=== PATIENT | male | born 1980 | race African-American/Black ===

== ENCOUNTER 2017-01-26 14:04 | Inpatient (IN) | payer OTHER ==
[2017-01-26 14:54] VITALS: BMI 26.6
--- NOTE | 2017-01-26 17:26 | HP ---
COWS - Scale Resting Pulse: 0= [place] 80 or Below Sweatin= Chills/Flushing Restless Observation: 3= Extraneous Movement Pupil Size: 0= Normal to Room Light Bone or Joint Aches: 1= Mild Discomfort Runny Nose/ Eye Tearin= Runny Nose/Eyes GI Upset > 30mins: 3= Vomiting/Diarrhea Tremor Observation: 2= Slight Tremor Visible Yawning Observation: 0= None Anxiety or Irritability: 2=Irritable/Anxious Goose Flesh Skin: 0=Smooth Skin COWS Score: 14 CIWA Score - CIWA Score Nausea/Vomitin Muscle Tremors: 4-Moderate,w/Arms Extend Anxiety: 3 Agitation: 3 Paroxysmal Sweats: 1-Minimal Palms Moist Orientation: 1-Uncertain about Date Tacttile Disturbances: 0-None Auditory Disturbances: 0-None Visual Disturbances: 0-None Headache: 0-None Present CIWA-Ar Total Score: 14 Admission [facility] - HPI Chief Complaint: withdrawal sx Allergies/Adverse Reactions: Allergies Allergy/AdvReac Type Severity Reaction Status Date / Time No Known Allergies Allergy Verified 01/26/17 15:45 History of Present Illness: 36 years old male with long history of heroin nicotine dependence has hypertension asthma schizophrenia is admitted to detox Exam Limitations: No Limitations - Ebola screening Have you traveled outside of the country in the last 21 days: No (N) Have you had contact with anyone from an Ebola affected area: No Have you been sick,other than usual withdrawal symptoms: No Do you have a fever: No - Review of Systems Constitutional: Changes in sleep, Weight Stable EENT: reports: No Symptoms Reported Respiratory: reports: No Symptoms reported Cardiac: reports: No Symptoms Reported GI: reports: Nausea, Poor Fluid Intake, Vomiting, Indigestion, Abdominal cramping : reports: No Symptoms Reported Musculoskeletal: reports: Back Pain, Joint Pain, Muscle Pain, Neck Pain Integumentary: reports: No Symptoms Reported Neuro: reports: Seizure (2015 alcohol withdrawal related seizure no treatment), Tremors Endocrine: reports: No Symptoms Reported Hematology: reports: No Symptoms Reported Psychiatric: reports: Judgement Intact, Anxious, Depressed Other Systems: Reviewed and Negative Patient History - Patient Medical History Hx Anemia: No Hx Asthma: Yes Hx Chronic Obstructive Pulmonary Disease (COPD): No Hx Cancer: No Hx Cardiac Disorders: No Hx Congestive Heart Failure: No Hx Hypertension: No Hx Hypercholesterolemia: No Hx Pacemaker: No HX Cerebrovascular Accident: No Hx Seizures: Yes (2014 no treatment) Hx Dementia: No Hx Diabetes: No Hx Gastrointestinal Disorders: No Hx Liver Disease: No Hx Genitourinary Disorders: No Hx Sexually Transmitted Disorders: No Hx Renal Disease (ESRD): No Hx Thyroid Disease: No Hx Human Immunodeficiency Virus (HIV): No Hx Hepatitis C: No Hx Depression: No Hx Suicide Attempt: No Hx Bipolar Disorder: No Hx Schizophrenia: Yes - Patient Surgical History Past Surgical History: No Hx Neurologic Surgery: No Hx Cataract Extraction: No Hx Cardiac Surgery: No Hx Lung Surgery: No Hx Breast Surgery: No Hx Breast Biopsy: No Hx Abdominal Surgery: No Hx Appendectomy: No Hx Cholecystectomy: No Hx Genitourinary Surgery: No Hx Orthopedic Surgery: No - PPD History Previous Implant?: Yes Documented Results: Negative w/o proof Implanted On Prior [facility] Admission?: No PPD to be Administered?: Yes - Smoking Cessation Smoking history: Current every day smoker Have you smoked in the past 12 months: Yes Aproximately how many cigarettes per day: 40 Cigars Per Day: 0 Hx Chewing Tobacco Use: No Initiated information on smoking cessation: Yes 'Breaking Loose' booklet given: 01/26/17 - Substances Abused Heroin Route: Inhalation Frequency: Daily Amount used: 5-6 bags Age of first use: 35 Date of Last Use: 01/25/17 Cocaine Route: Inhalation Frequency: Daily Amount used: $60 Age of first use: 22 Date of Last Use: 01/25/17 Alcohol-cognactequqila Route: Oral Frequency: Daily Amount used: 3 pts. Age of first use: 16 Date of Last Use: 01/25/17 Family Disease History - Family Disease History Family Disease History: Other: Father (no contact), Mother (no contact), Brother (no contact), Sister (no contact) Admission Physical Exam [facility] - Vital Signs Vital Signs: Vital Signs - 24 hr 01/26/17 14:52 Temperature 97.0 F L Pulse Rate 72 Respiratory 18 Rate Blood Pressure 160/100 - Physical General Appearance: Yes: Appropriately Dressed, Mild Distress, Tremorous, Irritable, Sweating, Anxious HEENTM: Yes: Hearing grossly Normal, Normal ENT Inspection, Normocephalic, Normal Voice Respiratory: Yes: Chest Non-Tender, No Respiratory Distress, No Accessory Muscle Use, Wheezing Neck: Yes: Supple, Trachea in good position Breast: Yes: Breasts Symetrical Cardiology: Yes: Regular Rhythm, Regular Rate, S1, S2 Abdominal: Yes: Non Tender, Soft, Increased Bowel Sounds Genitourinary: Yes: Within Normal Limits Back: Yes: Normal Inspection Musculoskeletal: Yes: full range of Motion, Gait Steady, Back pain, Muscle Pain Extremities: Yes: Normal Inspection, Normal Range of Motion, Non-Tender, Tremors Neurological: Yes: Alert, Motor Strength 5/5, Normal Response, Depressed Affect Integumentary: Yes: Warm Lymphatic: Yes: Within Normal Limits - Diagnostic (1) Alcohol dependence with uncomplicated withdrawal Current Visit: Yes Status: Acute (2) Opioid dependence with withdrawal Current Visit: Yes Status: Acute (3) Asthma Current Visit: Yes Status: Chronic Qualifiers: Asthma severity: mild (4) Nicotine dependence Current Visit: Yes Status: Acute Qualifiers: Nicotine product type: cigarettes Substance use status: in withdrawal Qualified Code(s): F17.213 - Nicotine dependence, cigarettes, with withdrawal (5) GERD (gastroesophageal reflux disease) Current Visit: Yes Status: Chronic Qualifiers: Esophagitis presence: without esophagitis Qualified Code(s): K21.9 - Gastro -esophageal reflux disease without esophagitis (6) Schizophrenia Current Visit: Yes Status: Suspected Qualifiers: Schizophrenia type: schizophreniform disorder Qualified Code(s): F20.81 - Schizophreniform disorder Cleared for Admission S - Detox or Rehab [facility] Level of Care: Medically Managed Detox Regimen/Protocol: Methadone/Librium [facility] Breath Alcohol Content Breath Alcohol Content: 0 Urine Drug Screen - Results Drug Screen Negative: No Urine Drug Screen Results: THC-Marijuana, OPI-Opiates
[2017-01-26] MEDS ORDERED: LOPERAMIDE HCL 2 MG CAPSULE PO PRN (17:31)
[2017-01-26] MEDS ORDERED: MAGNESIUM CITRATE 300 ML BOTTLE PO PRN (17:31)
[2017-01-26] MEDS ORDERED: NICOTINE POLACRILEX 4 MG GUM BC PRN (17:31)
[2017-01-26] MEDS ORDERED: ACETAMINOPHEN 325 MG TABLET (FP) PO PRN (17:31)
[2017-01-26] MEDS ORDERED: P-EPHED 60MG/TRIPROLIDI 2.5MG TABLET PO PRN (17:31)
[2017-01-26] MEDS ORDERED: MENTHOL/PHENOL 1 EACH UD MM PRN (17:31)
[2017-01-26] MEDS ORDERED: MAG HYDROX/AL HYDROX/SIMETH 30 ML UNIT-DOSE CUP PO PRN (17:31)
[2017-01-26] MEDS ORDERED: MAGNESIUM HYDROX 2400MG/30ML ORAL SUSPENSION 30 ML CUP PO PRN (17:31)
[2017-01-26] MEDS ORDERED: chlordiazePOXIDE HCL 25 MG CAPSULE PO PRN (17:31)
[2017-01-26] MEDS ORDERED: guaiFENesin/D-METHORPHAN HB 10 ML UNIT-DOSE CUPS PO PRN (17:31)
[2017-01-26] MEDS ORDERED: ALBUTEROL SO4 18 GM HFA INHALER IH PRN (17:32)
[2017-01-26] MEDS ORDERED: cloNIDine HCL 0.1 MG TABLET PO PRN (17:33)
[2017-01-26] MEDS ORDERED: ALBUTEROL SO4 2.5/IPRATROPIUM 0.5 INH SOL 3 ML VIAL.NEB. NEB PRN (17:33)
[2017-01-26] MEDS ORDERED: METHADONE HCL 10 MG TABLET (FOR DETOX USE ONLY) PO ONE ×2 (18:15→23:00)
[2017-01-26] MEDS: chlordiazePOXIDE HCL 25 MG CAPSULE PO SCH (22:22)
[2017-01-26] MEDS: RANITIDINE HCL 150 MG TABLET (FP) PO SCH (22:22)
[2017-01-26] MEDS: MINERAL OIL/PETROLAT/WATER TOPICAL CREAM 113 GM JAR TP SCH (22:24)
[2017-01-26] MEDS: THIAMINE HCL 100 MG TABLET (FP) PO SCH (22:57)
[2017-01-27 02:24] LABS: PH,URINE 8.5 (5.0-8.0); URINE APPEARANCE CLEAR; URINE BILIRUBIN NEGATIVE (NEGATIVE); URINE BLOOD NEGATIVE (NEGATIVE); URINE COLOR LT. YELLOW; URINE GLUCOSE (UA) NEGATIVE (NEGATIVE); URINE KETONE NEGATIVE (NEGATIVE); URINE NITRITE NEGATIVE (NEGATIVE); URINE PROTEIN NEGATIVE (NEGATIVE); URINE UROBILINOGEN 0.2 mg/dL (0.2-1.0)
[2017-01-27] MEDS: chlordiazePOXIDE HCL 25 MG CAPSULE PO SCH ×4 (06:07→22:43)
--- NOTE | 2017-01-27 08:07 | CONSULT ---
[facility] Psychiatric Consult - Data Date of interview: 01/27/17 Admission source: [facility] Identifying data: Mr Banuelos is a 36 years old single Black male, father of a 13 years old son, unemployed with no source of income, living in a room Substance Abuse History: Reports history of alcohol, heroin and cocaine use. Refer to addiction counselor's note for further information Medical History: Significant for bronchial asthma, seizure disorder and history of orthosurgery for fracture right hand. smokes cigarettes 2ppd Psychiatric History: Patient is a poor and unreliable historian. He reports being diagnosed with Bipolar Schizophrenia in 2006. Denies previous inpatient psychiatric hospitalization but reports while in fpc in [facility], he was placed in a special observation unit for people with mental illness. Reports non-compliance with [facility] care and claims he has been off medications for years. 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 At present, denies experiencing psychotic, manic or depressive symptoms, suicidal, homicidal ideations Physical/Sexual Abuse/Trauma History: Denies history of verbal, physical or sexual abuse as well as DV relationship Additional Comment: Reports history of multiple arrests including 4-5 felony convictions. Denies being on parole/probatio at present Mental Status Exam - Mental Status Exam Alert and Oriented to: Time, Place, Person Cognitive Function: Fair Patient Appearance: Well Groomed Mood: Hopeful, Euthymic Patient Behavior: Cooperative Speech Pattern: Clear Voice Loudness: Normal Thought Process: Intact, Goal Oriented Thought Disorder: Not Present Hallucinations: Denies Suicidal Ideation: Denies Homicidal Ideation: Denies Insight/Judgement: Fair Sleep: Poorly Appetite: Good Muscle strength/Tone: Normal Gait/Station: Normal Psychiatric Findings - Problem List ([place] 1, 2,3) (1) Schizoaffective disorder Current Visit: Yes Status: Chronic (2) Bipolar disorder Current Visit: Yes Status: Ruled-out (3) Alcohol dependence with uncomplicated withdrawal Current Visit: Yes Status: Acute (4) Opioid dependence with withdrawal Current Visit: Yes Status: Acute (5) Cocaine dependence Current Visit: Yes Status: Acute (6) Nicotine dependence Current Visit: Yes Status: Acute Qualifiers: Nicotine product type: cigarettes Substance use status: in withdrawal Qualified Code(s): F17.213 - Nicotine dependence, cigarettes, with withdrawal (7) Asthma Current Visit: Yes Status: Chronic Qualifiers: Asthma severity: mild (8) GERD (gastroesophageal reflux disease) Current Visit: Yes Status: Chronic Qualifiers: Esophagitis presence: without esophagitis Qualified Code(s): K21.9 - Gastro -esophageal reflux disease without esophagitis - Initial Treatment Plan Initial Treatment Plan: 1) Start Seroquel 100 mg po HS. 2) Continue inpatient detoxification
[2017-01-27] MEDS ORDERED: QUEtiapine FUMARATE 100 MG TABLET (FP) PO SCH (09:15)
[2017-01-27] MEDS ORDERED: METHADONE HCL 10 MG TABLET (FOR DETOX USE ONLY) PO SCH (10:00)
[2017-01-27 10:20] LABS: MCH 28.5 pg (25.7-33.7); MCHC 32.9 g/dl (32.0-35.9); MEAN CELL VOLUME 86.6 fl (80-96); MEAN PLT VOLUME 8.3 fl (7.5-11.1); PLATELET COUNT 253 K/MM3 (134-434); RDW 16.4 % (11.9-15.9); WHITE BLOOD COUNT 6.4 K/mm3 (4.0-10.0)
[2017-01-27 10:24] LABS: ALBUMIN 3.3 g/dl (3.4-5.0); ALK PHOS 56 U/L (45-117); ANION GAP 6 (8-16); BILIRUBIN,TOTAL 0.2 mg/dL (0.2-1.0); CALCIUM 7.8 mg/dL (8.5-10.1); CO2 28 mmol/L (21-32); GLUCOSE,RANDOM 117 mg/dL (74-106); SGOT/AST 9 U/L (15-37); SGPT/ALT 26 U/L (12-78); TOT PROT 6.3 g/dl (6.4-8.2)
[2017-01-27] MEDS: PRENATAL VITAMINS W/ FOLIC ACID TABLET (FP) PO SCH (10:43)
[2017-01-27] MEDS: RANITIDINE HCL 150 MG TABLET (FP) PO SCH ×2 (10:43→22:43)
[2017-01-27] MEDS: NICOTINE 21 MG/24 HOURS TOPICAL PATCH TD SCH (10:44)
[2017-01-27 11:27] LABS: URINE LEUK ESTERASE Negative (NEGATIVE)
[2017-01-27] MEDS ORDERED: FLU VACCINE QUAD 60 MCG/0.5 ML (MDV 17-18) IM ONE (12:00)
--- NOTE | 2017-01-27 14:18 | PN ---
[facility] CIWA - CIWA Score Nausea/Vomitin-No Nausea/No Vomiting Muscle Tremors: 4-Moderate,w/Arms Extend Anxiety: 4-Mod. Anxious/Guarded Agitation: 3 Paroxysmal Sweats: 3 Orientation: 0-Oriented Tacttile Disturbances: 2-Mild Itch/Numbness/Burn Auditory Disturbances: 2-Mild Harshness/Frighten Visual Disturbances: 0-None Headache: 0-None Present CIWA-Ar Total Score: 18 S COWS - Scale Resting Pulse: 0= [place] 80 or Below Sweatin= Chills/Flushing Restless Observation: 1= Difficult to Sit Still Pupil Size: 0= Normal to Room Light Bone or Joint Aches: 2= Severe Diffuse Aches Runny Nose/ Eye Tearin= None GI Upset > 30mins: 1= Stomach Cramp Tremor Observation of Outstretched Hands: 2= Slight Tremor Visible Yawning Observation: 1= 1-2x During Session Anxiety or Irritability: 2=Irritable/Anxious Goose Flesh Skin: 3=Piloerection COWS Score: 13 [facility] Progress Note (SOAP) Subjective: Constipation, Stomach Cramping, Anxious, Sweating, Tremors. Objective: PT. A & O X 3, OBSERVED AMBULATING ON UNIT. NO ACUTE DISTRESS. 01/27/17 14:15 Vital Signs Temperature 98.3 F 01/27/17 08:57 Pulse Rate 77 01/27/17 08:57 Respiratory Rate 18 01/27/17 08:57 Blood Pressure 121/86 01/27/17 08:57 O2 Sat by Pulse Oximetry (%) Laboratory Tests 01/26/17 01/27/17 01/27/17 22:50 07:40 07:40 WBC 6.4 RBC 4.42 Hgb 12.6 Hct 38.2 MCV 86.6 MCH 28.5 MCHC 32.9 RDW 16.4 H Plt Count 253 MPV 8.3 Sodium 141 Potassium 4.5 Chloride 107 Carbon Dioxide 28 Anion Gap 6 L BUN 15 Creatinine 1.0 Creat Clearance w eGFR > 60 Random Glucose 117 H Calcium 7.8 L Total Bilirubin 0.2 AST 9 L ALT 26 Alkaline Phosphatase 56 Total Protein 6.3 L Albumin 3.3 L Urine Color Lt. yellow Urine Appearance Clear Urine pH 8.5 H Ur Specific [place] 1.010 Urine Protein Negative Urine Glucose (UA) Negative Urine Ketones Negative Urine Blood Negative Urine Nitrite Negative Urine Bilirubin Negative Urine Urobilinogen 0.2 Ur Leukocyte Esterase Negative RPR Titer 01/27/17 07:40 WBC RBC Hgb Hct MCV MCH MCHC RDW Plt Count MPV Sodium Potassium Chloride Carbon Dioxide Anion Gap BUN Creatinine Creat Clearance w eGFR Random Glucose Calcium Total Bilirubin AST ALT Alkaline Phosphatase Total Protein Albumin Urine Color Urine Appearance Urine pH Ur Specific [place] Urine Protein Urine Glucose (UA) Urine Ketones Urine Blood Urine Nitrite Urine Bilirubin Urine Urobilinogen Ur Leukocyte Esterase RPR Titer Nonreactive LABS NOTED. HCV AB AND HIV AB RESULT PENDING. 01/27/17 14:17 Assessment: 01/27/17 14:16 WITHDRAWAL SYMPTOMS. Plan: CONTINUE DETOX. INCREASE DAILY PO FLUID INTAKE. PRN MOM FOR CONSTIPATION.
--- NOTE | 2017-01-27 22:32 | EKG ---
Test Reason : Blood Pressure : / mmHG Vent. Rate : 065 BPM Atrial Rate : 065 BPM P-R Int : 146 ms QRS Dur : 078 ms QT Int : 392 ms P-R-T Axes : 073 068 030 degrees QTc Int : 407 ms NORMAL SINUS RHYTHM POSSIBLE LEFT ATRIAL ENLARGEMENT EARLY REPOLARIZATION SEPTAL INFARCT , AGE UNDETERMINED ABNORMAL ECG NO PREVIOUS ECGS AVAILABLE Confirmed by STEPHANIA REDDY MD ([id number]) on 01/27/2017 10:31:37 PM Referred By: Confirmed By:STEPHANIA REDDY MD
[2017-01-27] MEDS: THIAMINE HCL 100 MG TABLET (FP) PO SCH (22:43)
[2017-01-27] MEDS: QUEtiapine FUMARATE 100 MG TABLET (FP) PO SCH (22:43)
[2017-01-27] MEDS: MINERAL OIL/PETROLAT/WATER TOPICAL CREAM 113 GM JAR TP SCH (22:43)
[2017-01-28] MEDS: chlordiazePOXIDE HCL 25 MG CAPSULE PO SCH ×3 (05:14→17:32)
[2017-01-28] MEDS: PRENATAL VITAMINS W/ FOLIC ACID TABLET (FP) PO SCH (10:11)
[2017-01-28] MEDS: RANITIDINE HCL 150 MG TABLET (FP) PO SCH ×2 (10:11→22:17)
[2017-01-28] MEDS: METHADONE HCL 5 MG TABLET (FOR DETOX USE ONLY) PO SCH (10:12)
[2017-01-28] MEDS: NICOTINE 21 MG/24 HOURS TOPICAL PATCH TD SCH (10:15)
--- NOTE | 2017-01-28 12:12 | PN ---
S CIWA - CIWA Score Nausea/Vomitin-No Nausea/No Vomiting Muscle Tremors: 3 Anxiety: 4-Mod. Anxious/Guarded Agitation: 3 Paroxysmal Sweats: 3 Orientation: 2-Disoriented Date<2 days Tacttile Disturbances: 3-Moderate Itch/Numb/Burn Auditory Disturbances: 0-None Visual Disturbances: 0-None Headache: 0-None Present CIWA-Ar Total Score: 18 [facility] COWS - Scale Resting Pulse: 0= [place] 80 or Below Sweatin= Chills/Flushing Restless Observation: 1= Difficult to Sit Still Pupil Size: 0= Normal to Room Light Bone or Joint Aches: 0= None Runny Nose/ Eye Tearin= Runny Nose/Eyes GI Upset > 30mins: 0= None Tremor Observation of Outstretched Hands: 2= Slight Tremor Visible Yawning Observation: 1= 1-2x During Session Anxiety or Irritability: 2=Irritable/Anxious Goose Flesh Skin: 3=Piloerection COWS Score: 12 [facility] Progress Note (SOAP) Subjective: Sweating, Tremors, Anxious, Fatigue. Patient reporting "burning" sensation when urinating X 1 day. Objective: PT. A & O X 2 (UNCERTAIN ABOUT DAY / DATE). PT. OBSERVED AMBULATING ON UNIT. NO ACUTE DISTRESS. 01/28/17 12:08 Vital Signs Temperature 96.5 F L 01/28/17 10:00 Pulse Rate 76 01/28/17 10:00 Respiratory Rate 18 01/28/17 10:00 Blood Pressure 127/84 01/28/17 10:00 O2 Sat by Pulse Oximetry (%) Laboratory Tests 01/26/17 01/27/17 01/27/17 22:50 07:40 07:40 WBC 6.4 RBC 4.42 Hgb 12.6 Hct 38.2 MCV 86.6 MCH 28.5 MCHC 32.9 RDW 16.4 H Plt Count 253 MPV 8.3 Sodium 141 Potassium 4.5 Chloride 107 Carbon Dioxide 28 Anion Gap 6 L BUN 15 Creatinine 1.0 Creat Clearance w eGFR > 60 Random Glucose 117 H Calcium 7.8 L Total Bilirubin 0.2 AST 9 L ALT 26 Alkaline Phosphatase 56 Total Protein 6.3 L Albumin 3.3 L Urine Color Lt. yellow Urine Appearance Clear Urine pH 8.5 H Ur Specific [place] 1.010 Urine Protein Negative Urine Glucose (UA) Negative Urine Ketones Negative Urine Blood Negative Urine Nitrite Negative Urine Bilirubin Negative Urine Urobilinogen 0.2 Ur Leukocyte Esterase Negative RPR Titer 01/27/17 07:40 WBC RBC Hgb Hct MCV MCH MCHC RDW Plt Count MPV Sodium Potassium Chloride Carbon Dioxide Anion Gap BUN Creatinine Creat Clearance w eGFR Random Glucose Calcium Total Bilirubin AST ALT Alkaline Phosphatase Total Protein Albumin Urine Color Urine Appearance Urine pH Ur Specific [place] Urine Protein Urine Glucose (UA) Urine Ketones Urine Blood Urine Nitrite Urine Bilirubin Urine Urobilinogen Ur Leukocyte Esterase RPR Titer Nonreactive LABS NOTED. Assessment: 01/28/17 12:09 WITHDRAWAL SYMPTOMS. Plan: CONTINUE DETOX. REPEAT UA, WITH URINE C + S. AT RECOMMENDATION OF LOAN COUNSELOR (AFTER CONSULTATION WITH PATIENT), CALCIUM + VITAMIN D SUPPLEMENT ORDERED BID. REPEAT CALCIUM LEVEL ON 01/30/2017. INCREASE DAILY PO FLUID INTAKE.
[2017-01-28] MEDS: CALCIUM 250MG/VIT-D 125 UNITS 1 COMBO TABLET PO SCH (12:55)
[2017-01-28 13:11] LABS: HIV 1 & 2 AB NEGATIVE; HIV 1 AGp24 NEGATIVE
[2017-01-28 14:33] LABS: URINE APPEARANCE CLEAR; URINE BILIRUBIN NEGATIVE (NEGATIVE); URINE BLOOD NEGATIVE (NEGATIVE); URINE COLOR LTYELLOW; URINE GLUCOSE (UA) NEGATIVE (NEGATIVE); URINE KETONE NEGATIVE (NEGATIVE); URINE NITRITE NEGATIVE (NEGATIVE); URINE PROTEIN NEGATIVE (NEGATIVE); URINE UROBILINOGEN NEGATIVE mg/dL (0.2-1.0)
[2017-01-28 19:24] LABS: URINE LEUK ESTERASE Negative (NEGATIVE)
[2017-01-28] MEDS: QUEtiapine FUMARATE 100 MG TABLET (FP) PO SCH (22:17)
[2017-01-28] MEDS: THIAMINE HCL 100 MG TABLET (FP) PO SCH (22:17)
[2017-01-28] MEDS: MINERAL OIL/PETROLAT/WATER TOPICAL CREAM 113 GM JAR TP SCH (22:19)
[2017-01-28] MEDS: chlordiazePOXIDE 5 MG CAPSULE PO SCH (22:20)
[2017-01-29] MEDS: chlordiazePOXIDE 5 MG CAPSULE PO SCH ×3 (05:48→16:54)
[2017-01-29] MEDS: RANITIDINE HCL 150 MG TABLET (FP) PO SCH ×2 (10:24→22:21)
[2017-01-29] MEDS: PRENATAL VITAMINS W/ FOLIC ACID TABLET (FP) PO SCH (10:24)
[2017-01-29] MEDS: NICOTINE 21 MG/24 HOURS TOPICAL PATCH TD SCH (10:25)
[2017-01-29] MEDS: METHADONE HCL 5 MG TABLET (FOR DETOX USE ONLY) PO SCH (10:25)
[2017-01-29] MEDS: CALCIUM 250MG/VIT-D 125 UNITS 1 COMBO TABLET PO SCH (10:26)
--- NOTE | 2017-01-29 13:02 | PN ---
S Progress Note (SOAP) Subjective: Fatigue, Sweating, Interrupted Sleep. Objective: PT. A & O X 2 (UNCERTAIN ABOUT DAY / DATE). NO ACUTE DISTRESS. 01/29/17 12:59 Vital Signs Temperature 96.9 F L 01/29/17 10:00 Pulse Rate 83 01/29/17 10:00 Respiratory Rate 20 01/29/17 10:00 Blood Pressure 127/81 01/29/17 10:00 O2 Sat by Pulse Oximetry (%) Laboratory Tests 01/26/17 01/27/17 01/27/17 22:50 07:40 07:40 WBC RBC Hgb Hct MCV MCH MCHC RDW Plt Count MPV Sodium Potassium Chloride Carbon Dioxide Anion Gap BUN Creatinine Creat Clearance w eGFR POC Glucometer Random Glucose Calcium Total Bilirubin AST ALT Alkaline Phosphatase Total Protein Albumin Urine Color Lt. yellow Urine Appearance Clear Urine pH 8.5 H Ur Specific [place] 1.010 Urine Protein Negative Urine Glucose (UA) Negative Urine Ketones Negative Urine Blood Negative Urine Nitrite Negative Urine Bilirubin Negative Urine Urobilinogen 0.2 Ur Leukocyte Esterase Negative RPR Titer Hepatitis C Antibody <0.1 HIV 1&2 Antibody Screen Negative HIV P24 Antigen Negative 01/27/17 01/27/17 01/27/17 07:40 07:40 07:40 WBC 6.4 RBC 4.42 Hgb 12.6 Hct 38.2 MCV 86.6 MCH 28.5 MCHC 32.9 RDW 16.4 H Plt Count 253 MPV 8.3 Sodium 141 Potassium 4.5 Chloride 107 Carbon Dioxide 28 Anion Gap 6 L BUN 15 Creatinine 1.0 Creat Clearance w eGFR > 60 POC Glucometer Random Glucose 117 H Calcium 7.8 L Total Bilirubin 0.2 AST 9 L ALT 26 Alkaline Phosphatase 56 Total Protein 6.3 L Albumin 3.3 L Urine Color Urine Appearance Urine pH Ur Specific [place] Urine Protein Urine Glucose (UA) Urine Ketones Urine Blood Urine Nitrite Urine Bilirubin Urine Urobilinogen Ur Leukocyte Esterase RPR Titer Nonreactive Hepatitis C Antibody HIV 1&2 Antibody Screen HIV P24 Antigen 01/28/17 01/29/17 12:40 05:50 WBC RBC Hgb Hct MCV MCH MCHC RDW Plt Count MPV Sodium Potassium Chloride Carbon Dioxide Anion Gap BUN Creatinine Creat Clearance w eGFR POC Glucometer 94 Random Glucose Calcium Total Bilirubin AST ALT Alkaline Phosphatase Total Protein Albumin Urine Color Ltyellow Urine Appearance Clear Urine pH 6.0 D Ur Specific [place] 1.009 Urine Protein Negative Urine Glucose (UA) Negative Urine Ketones Negative Urine Blood Negative Urine Nitrite Negative Urine Bilirubin Negative Urine Urobilinogen Negative Ur Leukocyte Esterase Negative RPR Titer Hepatitis C Antibody HIV 1&2 Antibody Screen HIV P24 Antigen LABS NOTED. RESULTS OF REPEAT UA AND URINE C + S NOTED. NO NEED FOR FURTHER ACTION AT THIS TIME. 01/29/17 13:01 Assessment: 01/29/17 13:00 WITHDRAWAL SYMPTOMS. Plan: CONTINUE DETOX. INCREASE DAILY PO FLUID INTAKE.
[2017-01-29] MEDS: chlordiazePOXIDE HCL 10 MG CAPSULE PO SCH (22:21)
[2017-01-29] MEDS: QUEtiapine FUMARATE 100 MG TABLET (FP) PO SCH (22:21)
[2017-01-29] MEDS: THIAMINE HCL 100 MG TABLET (FP) PO SCH (22:21)
[2017-01-29] MEDS: MINERAL OIL/PETROLAT/WATER TOPICAL CREAM 113 GM JAR TP SCH (23:24)
[2017-01-30] MEDS: chlordiazePOXIDE HCL 10 MG CAPSULE PO SCH ×3 (05:36→17:10)
[2017-01-30] MEDS ORDERED: METHADONE HCL 10 MG TABLET (FOR DETOX USE ONLY) PO SCH (10:00)
[2017-01-30] MEDS: NICOTINE 21 MG/24 HOURS TOPICAL PATCH TD SCH (10:15)
[2017-01-30] MEDS: CALCIUM 250MG/VIT-D 125 UNITS 1 COMBO TABLET PO SCH (10:15)
[2017-01-30] MEDS: RANITIDINE HCL 150 MG TABLET (FP) PO SCH ×2 (10:15→22:17)
[2017-01-30] MEDS: PRENATAL VITAMINS W/ FOLIC ACID TABLET (FP) PO SCH (10:15)
--- NOTE | 2017-01-30 12:39 | PN ---
[facility] Progress Note (SOAP) Subjective: Sweating, interrupted sleep Objective: 01/30/17 12:39 Last Vital Signs Temp Pulse Resp BP Pulse Ox 98.5 F 85 18 126/81 01/30/17 09:47 01/30/17 09:47 01/30/17 09:47 01/30/17 09:47 Laboratory Tests 01/26/17 01/27/17 01/27/17 22:50 07:40 07:40 WBC RBC Hgb Hct MCV MCH MCHC RDW Plt Count MPV Sodium Potassium Chloride Carbon Dioxide Anion Gap BUN Creatinine Creat Clearance w eGFR POC Glucometer Random Glucose Calcium Total Bilirubin AST ALT Alkaline Phosphatase Total Protein Albumin Urine Color Lt. yellow Urine Appearance Clear Urine pH 8.5 H Ur Specific [place] 1.010 Urine Protein Negative Urine Glucose (UA) Negative Urine Ketones Negative Urine Blood Negative Urine Nitrite Negative Urine Bilirubin Negative Urine Urobilinogen 0.2 Ur Leukocyte Esterase Negative RPR Titer Hepatitis C Antibody <0.1 HIV 1&2 Antibody Screen Negative HIV P24 Antigen Negative 01/27/17 01/27/17 01/27/17 07:40 07:40 07:40 WBC 6.4 RBC 4.42 Hgb 12.6 Hct 38.2 MCV 86.6 MCH 28.5 MCHC 32.9 RDW 16.4 H Plt Count 253 MPV 8.3 Sodium 141 Potassium 4.5 Chloride 107 Carbon Dioxide 28 Anion Gap 6 L BUN 15 Creatinine 1.0 Creat Clearance w eGFR > 60 POC Glucometer Random Glucose 117 H Calcium 7.8 L Total Bilirubin 0.2 AST 9 L ALT 26 Alkaline Phosphatase 56 Total Protein 6.3 L Albumin 3.3 L Urine Color Urine Appearance Urine pH Ur Specific [place] Urine Protein Urine Glucose (UA) Urine Ketones Urine Blood Urine Nitrite Urine Bilirubin Urine Urobilinogen Ur Leukocyte Esterase RPR Titer Nonreactive Hepatitis C Antibody HIV 1&2 Antibody Screen HIV P24 Antigen 01/28/17 01/29/17 01/30/17 12:40 05:50 05:38 WBC RBC Hgb Hct MCV MCH MCHC RDW Plt Count MPV Sodium Potassium Chloride Carbon Dioxide Anion Gap BUN Creatinine Creat Clearance w eGFR POC Glucometer 94 96 Random Glucose Calcium Total Bilirubin AST ALT Alkaline Phosphatase Total Protein Albumin Urine Color Ltyellow Urine Appearance Clear Urine pH 6.0 D Ur Specific [place] 1.009 Urine Protein Negative Urine Glucose (UA) Negative Urine Ketones Negative Urine Blood Negative Urine Nitrite Negative Urine Bilirubin Negative Urine Urobilinogen Negative Ur Leukocyte Esterase Negative RPR Titer Hepatitis C Antibody HIV 1&2 Antibody Screen HIV P24 Antigen 01/30/17 07:40 WBC RBC Hgb Hct MCV MCH MCHC RDW Plt Count MPV Sodium Potassium Chloride Carbon Dioxide Anion Gap BUN Creatinine Creat Clearance w eGFR POC Glucometer Random Glucose Calcium 8.5 Total Bilirubin AST ALT Alkaline Phosphatase Total Protein Albumin Urine Color Urine Appearance Urine pH Ur Specific [place] Urine Protein Urine Glucose (UA) Urine Ketones Urine Blood Urine Nitrite Urine Bilirubin Urine Urobilinogen Ur Leukocyte Esterase RPR Titer Hepatitis C Antibody HIV 1&2 Antibody Screen HIV P24 Antigen Labs noted Assessment: 01/30/17 12:39 Withdrawal symptoms Plan: Continue detox Encouraged to drink lots of water
[2017-01-30] MEDS: QUEtiapine FUMARATE 100 MG TABLET (FP) PO SCH (21:16)
[2017-01-30] MEDS: THIAMINE HCL 100 MG TABLET (FP) PO SCH (22:17)
[2017-01-30] MEDS: MINERAL OIL/PETROLAT/WATER TOPICAL CREAM 113 GM JAR TP SCH (22:17)
[2017-01-31] MEDS ORDERED: METHADONE HCL 5 MG TABLET (FOR DETOX USE ONLY) PO SCH (06:00)
[2017-01-31 06:09] VITALS: BP 122/70; PULSE 70; TEMP 96.5
--- NOTE | 2017-01-31 10:19 | DS ---
[facility] Detox Discharge Summary Admission Date: 01/26/17 Discharge Date: 01/31/17 - History Present History: Alcohol Dependence, Cocaine Dependence, Opioid Dependence Additional Comments: DETOX COMPLETED. Pertinent Past History: ASTHMA SEIZURE DISORDER GERD SCHIZO-AFFECTIVE DISORDER - Physical Exam Results Vital Signs: Vital Signs Temperature 96.5 F L 01/31/17 06:09 Pulse Rate 70 01/31/17 06:09 Respiratory Rate 18 01/31/17 06:09 Blood Pressure 122/70 01/31/17 06:09 O2 Sat by Pulse Oximetry (%) Pertinent Admission Physical Exam Findings: WITHDRAWAL SX Laboratory Last Values WBC 6.4 K/mm3 (4.0-10.0) 01/27/17 07:40 RBC 4.42 M/mm3 (4.00-5.60) 01/27/17 07:40 Hgb 12.6 GM/dL (11.7-16.9) 01/27/17 07:40 Hct 38.2 % (35.4-49) 01/27/17 07:40 MCV 86.6 fl (80-96) 01/27/17 07:40 MCH 28.5 pg (25.7-33.7) 01/27/17 07:40 MCHC 32.9 g/dl (32.0-35.9) 01/27/17 07:40 RDW 16.4 % (11.9-15.9) H 01/27/17 07:40 Plt Count 253 K/MM3 (134-434) 01/27/17 07:40 MPV 8.3 fl (7.5-11.1) 01/27/17 07:40 Sodium 141 mmol/L (136-145) 01/27/17 07:40 Potassium 4.5 mmol/L (3.5-5.1) 01/27/17 07:40 Chloride 107 mmol/L (98-107) 01/27/17 07:40 Carbon Dioxide 28 mmol/L (21-32) 01/27/17 07:40 Anion Gap 6 (8-16) L 01/27/17 07:40 BUN 15 mg/dL (7-18) 01/27/17 07:40 Creatinine 1.0 mg/dL (0.7-1.3) 01/27/17 07:40 Creat Clearance w eGFR > 60 (>60) 01/27/17 07:40 POC Glucometer 87 UNITS (80-120) 01/31/17 05:39 Random Glucose 117 mg/dL (74-106) H 01/27/17 07:40 Calcium 8.5 mg/dL (8.5-10.1) 01/30/17 07:40 Total Bilirubin 0.2 mg/dL (0.2-1.0) 01/27/17 07:40 AST 9 U/L (15-37) L 01/27/17 07:40 ALT 26 U/L (12-78) 01/27/17 07:40 Alkaline Phosphatase 56 U/L (45-117) 01/27/17 07:40 Total Protein 6.3 g/dl (6.4-8.2) L 01/27/17 07:40 Albumin 3.3 g/dl (3.4-5.0) L 01/27/17 07:40 Urine Color Ltyellow 01/28/17 12:40 Urine Appearance Clear 01/28/17 12:40 Urine pH 6.0 (5.0-8.0) D 01/28/17 12:40 Ur Specific [place] 1.009 (1.001-1.035) 01/28/17 12:40 Urine Protein Negative (NEGATIVE) 01/28/17 12:40 Urine Glucose (UA) Negative (NEGATIVE) 01/28/17 12:40 Urine Ketones Negative (NEGATIVE) 01/28/17 12:40 Urine Blood Negative (NEGATIVE) 01/28/17 12:40 Urine Nitrite Negative (NEGATIVE) 01/28/17 12:40 Urine Bilirubin Negative (NEGATIVE) 01/28/17 12:40 Urine Urobilinogen Negative mg/dL (0.2-1.0) 01/28/17 12:40 Ur Leukocyte Esterase Negative (NEGATIVE) 01/28/17 12:40 RPR Titer Nonreactive (NONREACTIVE) 01/27/17 07:40 Hepatitis C Antibody <0.1 s/co ratio (0.0-0.9) 01/27/17 07:40 HIV 1&2 Antibody Screen Negative 01/27/17 07:40 HIV P24 Antigen Negative 01/27/17 07:40 - Treatment Hospital Course: Detox Protocol Followed, Detoxed Safely, Responded well, Discharged Condition Good, Rehab Referral Accepted Patient has Accepted a Rehab Referral to: [facility] - Medication Discharge Medications: Ambulatory Orders NK [No Known Home Medication] 01/26/17 - Diagnosis (1) Alcohol dependence with uncomplicated withdrawal Status: Acute (2) Nicotine dependence Status: Acute Qualifiers: Nicotine product type: cigarettes Substance use status: in withdrawal Qualified Code(s): F17.213 - Nicotine dependence, cigarettes, with withdrawal (3) Opioid dependence with withdrawal Status: Acute (4) Asthma Status: Chronic Qualifiers: Asthma severity: mild Asthma persistence: unspecified Asthma complication type: uncomplicated Qualified Code(s): J45.909 - Unspecified asthma, uncomplicated (5) Cocaine dependence Status: Chronic Qualifiers: Substance use status: uncomplicated Qualified Code(s): F14.20 - Cocaine dependence, uncomplicated (6) GERD (gastroesophageal reflux disease) Status: Chronic Qualifiers: Esophagitis presence: without esophagitis Qualified Code(s): K21.9 - Gastro -esophageal reflux disease without esophagitis (7) Seizure Status: Chronic - AMA Did Patient Leave Against Medical Advice: No
== END 2017-01-31 09:11 | disposition home or self-care (01) | DRG 773 ==
LOC: YASAS 14:04 → Y3N 16:46
PROVIDERS: ADMIT Internal Medicine; ATTEND Internal Medicine
PROC: HZ2ZZZZ Detoxification Services for Substance Abuse Treatment (ICD-10-PCS; principal; 2017-01-26)
DX: F11.23 Opioid dependence with withdrawal (principal); F10.230 Alcohol dependence with withdrawal, uncomplicated; F14.20 Cocaine dependence, uncomplicated; F12.20 Cannabis dependence, uncomplicated; F17.213 Nicotine dependence, cigarettes, with withdrawal; F20.81 Schizophreniform disorder; F25.9 Schizoaffective disorder, unspecified; F31.9 Bipolar disorder, unspecified; I10 Essential (primary) hypertension; J45.909 Unspecified asthma, uncomplicated; K21.9 Gastro-esophageal reflux disease without esophagitis; E83.51 Hypocalcemia; Z86.69 Personal history of other diseases of the nervous system and sense organs
CPT/HCPCS: 36415; 80053; 81003; 82310; 85027; 86593; 86803; 87086; 87389; 90688; 93005; 93010

== ENCOUNTER 2017-03-01 12:34 | Inpatient (IN) | payer OTHER ==
[2017-03-01 16:42] VITALS: BMI 27.1
--- NOTE | 2017-03-01 18:09 | HP ---
COWS - Scale Resting Pulse: 0= [place] 80 or Below Sweatin= Chills/Flushing Restless Observation: 3= Extraneous Movement Pupil Size: 0= Normal to Room Light Bone or Joint Aches: 2= Severe Diffuse Aches Runny Nose/ Eye Tearin= Runny Nose/Eyes GI Upset > 30mins: 2= Nausea/Diarrhea Tremor Observation: 2= Slight Tremor Visible Yawning Observation: 0= None Anxiety or Irritability: 2=Irritable/Anxious Goose Flesh Skin: 0=Smooth Skin COWS Score: 14 CIWA Score - CIWA Score Nausea/Vomitin-Mild Nausea/No Vomiting Muscle Tremors: 4-Moderate,w/Arms Extend Anxiety: 4-Mod. Anxious/Guarded Agitation: 4-Moderately Restless Paroxysmal Sweats: 1-Minimal Palms Moist Orientation: 1-Uncertain about Date Tacttile Disturbances: 0-None Auditory Disturbances: 0-None Visual Disturbances: 0-None Headache: 0-None Present CIWA-Ar Total Score: 15 Admission ROS S - HPI Chief Complaint: withdrawal sx Allergies/Adverse Reactions: Allergies Allergy/AdvReac Type Severity Reaction Status Date / Time No Known Allergies Allergy Verified 03/01/17 18:09 History of Present Illness: 36 years old male with long history of opioid nicotine dependence has asthma and schizophrenia is admitted to detox Exam Limitations: No Limitations - Ebola screening Have you traveled outside of the country in the last 21 days: No Have you had contact with anyone from an Ebola affected area: No Have you been sick,other than usual withdrawal symptoms: No Do you have a fever: No - Review of Systems Constitutional: Chills, Weight Stable EENT: reports: Hearing Loss (right ear) Respiratory: reports: SOB with Exertion Cardiac: reports: No Symptoms Reported GI: reports: Nausea, Poor Fluid Intake, Abdominal cramping : reports: No Symptoms Reported Musculoskeletal: reports: Back Pain, Joint Pain, Muscle Pain, Neck Pain Integumentary: reports: Change in Color (multiple superficial "hand cuff" scratch) Neuro: reports: Tremors Endocrine: reports: No Symptoms Reported Hematology: reports: No Symptoms Reported Psychiatric: reports: Judgement Intact, other (schizophrenia) Other Systems: Reviewed and Negative Patient History - Patient Medical History Hx Anemia: No Hx Asthma: Yes Hx Chronic Obstructive Pulmonary Disease (COPD): No Hx Cancer: No Hx Cardiac Disorders: No Hx Congestive Heart Failure: No Hx Hypertension: No Hx Hypercholesterolemia: No Hx Pacemaker: No HX Cerebrovascular Accident: No Hx Seizures: Yes (2014 no treatment) Hx Dementia: No Hx Diabetes: No Hx Gastrointestinal Disorders: No Hx Liver Disease: No Hx Genitourinary Disorders: No Hx Sexually Transmitted Disorders: No Hx Renal Disease (ESRD): No Hx Thyroid Disease: No Hx Human Immunodeficiency Virus (HIV): No Hx Hepatitis C: No Hx Depression: No Hx Suicide Attempt: No Hx Bipolar Disorder: No Hx Schizophrenia: Yes - Patient Surgical History Past Surgical History: No Hx Neurologic Surgery: No Hx Cataract Extraction: No Hx Cardiac Surgery: No Hx Lung Surgery: No Hx Breast Surgery: No Hx Breast Biopsy: No Hx Abdominal Surgery: No Hx Appendectomy: No Hx Cholecystectomy: No Hx Genitourinary Surgery: No Hx Orthopedic Surgery: No - PPD History Previous Implant?: Yes Documented Results: Negative w/o proof Implanted On [facility] Admission?: Yes Date: 01/28/17 PPD to be Administered?: No - Smoking Cessation Smoking history: Current every day smoker Have you smoked in the past 12 months: Yes Aproximately how many cigarettes per day: 20 Cigars Per Day: 0 Hx Chewing Tobacco Use: No Initiated information on smoking cessation: Yes 'Breaking Loose' booklet given: 03/01/17 - Substance & Tx. History Hx Alcohol Use: Yes Hx Substance Use: Yes Substance Use Type: Alcohol, Opiates Hx Substance Use Treatment: Yes (01/2017 [facility] Family Disease History - Family Disease History Family Disease History: Other: Father (no contact), Mother (no contact), Brother (no contact), Sister (no contact) Admission Physical Exam S - Vital Signs Vital Signs: Vital Signs - 24 hr 03/01/17 16:40 Temperature 97.5 F L Pulse Rate 73 Respiratory 18 Rate Blood Pressure 150/85 - Physical General Appearance: Yes: Appropriately Dressed, Mild Distress, Tremorous, Irritable, Sweating, Anxious HEENTM: Yes: Hearing grossly Normal, Normal ENT Inspection, Normocephalic, Normal Voice Respiratory: Yes: Chest Non-Tender, No Respiratory Distress, No Accessory Muscle Use, Wheezing Neck: Yes: Supple, Trachea in good position Breast: Yes: Breasts Symetrical Cardiology: Yes: Regular Rhythm, Regular Rate, S1, S2 Abdominal: Yes: Normal Bowel Sounds, Non Tender, Soft Genitourinary: Yes: Within Normal Limits Back: Yes: Normal Inspection Musculoskeletal: Yes: full range of Motion, Gait Steady, Back pain, Muscle Pain Extremities: Yes: Normal Inspection, Normal Range of Motion, Non-Tender, Tremors Neurological: Yes: Alert, Motor Strength 5/5, Normal Response, Depressed Affect Integumentary: Yes: Warm Lymphatic: Yes: Within Normal Limits - Diagnostic (1) Alcohol dependence with uncomplicated withdrawal Current Visit: Yes Status: Acute (2) Nicotine dependence Current Visit: Yes Status: Acute Qualifiers: Nicotine product type: cigarettes Substance use status: in withdrawal Qualified Code(s): F17.213 - Nicotine dependence, cigarettes, with withdrawal (3) Opioid dependence with withdrawal Current Visit: Yes Status: Acute (4) Asthma Current Visit: Yes Status: Chronic Qualifiers: Asthma severity: mild Asthma persistence: unspecified Asthma complication type: uncomplicated Qualified Code(s): J45.909 - Unspecified asthma, uncomplicated (5) GERD (gastroesophageal reflux disease) Current Visit: Yes Status: Chronic Qualifiers: Esophagitis presence: without esophagitis Qualified Code(s): K21.9 - Gastro -esophageal reflux disease without esophagitis (6) Schizophrenia Current Visit: Yes Status: Suspected Qualifiers: Schizophrenia type: schizophreniform disorder Qualified Code(s): F20.81 - Schizophreniform disorder Cleared for Admission [facility] - Detox or Rehab [facility] Level of Care: Medically Managed Detox Regimen/Protocol: Methadone/Librium S Breath Alcohol Content Breath Alcohol Content: 0 Urine Drug Screen - Control Is Test Valid: Yes - Results Drug Screen Negative: No Urine Drug Screen Results: OPI-Opiates
[2017-03-01] MEDS ORDERED: guaiFENesin/D-METHORPHAN HB 10 ML UNIT-DOSE CUPS PO PRN (18:16)
[2017-03-01] MEDS ORDERED: MAG HYDROX/AL HYDROX/SIMETH 30 ML UNIT-DOSE CUP PO PRN (18:16)
[2017-03-01] MEDS ORDERED: MAGNESIUM HYDROX 2400MG/30ML ORAL SUSPENSION 30 ML CUP PO PRN (18:16)
[2017-03-01] MEDS ORDERED: MAGNESIUM CITRATE 300 ML BOTTLE PO PRN (18:16)
[2017-03-01] MEDS ORDERED: chlordiazePOXIDE HCL 25 MG CAPSULE PO PRN (18:16)
[2017-03-01] MEDS ORDERED: LOPERAMIDE HCL 2 MG CAPSULE PO PRN (18:16)
[2017-03-01] MEDS ORDERED: ACETAMINOPHEN 325 MG TABLET (FP) PO PRN (18:16)
[2017-03-01] MEDS ORDERED: IBUPROFEN 400 MG TABLET (FP) PO PRN (18:16)
[2017-03-01] MEDS ORDERED: MENTHOL/PHENOL 1 EACH UD MM PRN (18:16)
[2017-03-01] MEDS ORDERED: NICOTINE POLACRILEX 4 MG GUM BUC PRN (18:16)
[2017-03-01] MEDS ORDERED: P-EPHED 60MG/TRIPROLIDI 2.5MG TABLET PO PRN (18:16)
[2017-03-01] MEDS ORDERED: ALBUTEROL SO4 18 GM HFA INHALER IH PRN (18:20)
[2017-03-01] MEDS ORDERED: cloNIDine HCL 0.1 MG TABLET PO PRN (18:24)
[2017-03-01] MEDS ORDERED: METHADONE HCL 10 MG TABLET (FOR DETOX USE ONLY) PO ONE ×2 (19:00→23:00)
[2017-03-01] MEDS: chlordiazePOXIDE HCL 25 MG CAPSULE PO SCH (22:11)
[2017-03-01] MEDS: RANITIDINE HCL 150 MG TABLET (FP) PO SCH (22:11)
[2017-03-01] MEDS: THIAMINE HCL 100 MG TABLET (FP) PO SCH (22:12)
[2017-03-01 23:30] LABS: URINE APPEARANCE CLEAR; URINE BILIRUBIN NEGATIVE (NEGATIVE); URINE BLOOD NEGATIVE (NEGATIVE); URINE COLOR YELLOW; URINE GLUCOSE (UA) NEGATIVE (NEGATIVE); URINE KETONE NEGATIVE (NEGATIVE); URINE LEUK ESTERASE NEGATIVE (NEGATIVE); URINE NITRITE NEGATIVE (NEGATIVE); URINE PROTEIN NEGATIVE (NEGATIVE); URINE UROBILINOGEN NEGATIVE mg/dL (0.2-1.0)
[2017-03-02] MEDS: chlordiazePOXIDE HCL 25 MG CAPSULE PO SCH ×4 (05:33→22:05)
[2017-03-02] MEDS ORDERED: METHADONE HCL 10 MG TABLET (FOR DETOX USE ONLY) PO SCH (10:00)
[2017-03-02 10:10] LABS: ALBUMIN 3.4 g/dl (3.4-5.0); ANION GAP 8 (8-16); CALCIUM 8.1 mg/dL (8.5-10.1); CO2 24 mmol/L (21-32); GLUCOSE,RANDOM 140 mg/dL (74-106)
[2017-03-02 10:15] LABS: ALK PHOS 58 U/L (45-117); BILIRUBIN,TOTAL 0.3 mg/dL (0.2-1.0); CREATININE 0.9 mg/dL (0.7-1.3); SGOT/AST 13 U/L (15-37); SGPT/ALT 27 U/L (12-78); TOT PROT 6.5 g/dl (6.4-8.2)
[2017-03-02] MEDS: RANITIDINE HCL 150 MG TABLET (FP) PO SCH ×2 (10:38→22:06)
[2017-03-02] MEDS: PRENATAL VITAMINS W/ FOLIC ACID TABLET (FP) PO SCH (10:38)
[2017-03-02] MEDS: NICOTINE 21 MG/24 HOURS TOPICAL PATCH TD SCH (10:38)
[2017-03-02 10:44] LABS: MCH 27.9 pg (25.7-33.7); MCHC 32.1 g/dl (32.0-35.9); MEAN PLT VOLUME 8.4 fl (7.5-11.1); PLATELET COUNT 239 K/MM3 (134-434); WHITE BLOOD COUNT 5.9 K/mm3 (4.0-10.0)
--- NOTE | 2017-03-02 12:08 | PN ---
[facility] CIWA - CIWA Score Nausea/Vomitin-No Nausea/No Vomiting Muscle Tremors: None Anxiety: 3 Agitation: 3 Paroxysmal Sweats: 3 Orientation: 2-Disoriented Date<2 days Tacttile Disturbances: 2-Mild Itch/Numbness/Burn Auditory Disturbances: 2-Mild Harshness/Frighten Visual Disturbances: 2-Mild Sensitivity Headache: 0-None Present CIWA-Ar Total Score: 17 S COWS - Scale Resting Pulse: 0= [place] 80 or Below Sweatin=Flushed/Facial Moisture Restless Observation: 1= Difficult to Sit Still Pupil Size: 0= Normal to Room Light Bone or Joint Aches: 2= Severe Diffuse Aches Runny Nose/ Eye Tearin= Nasal Congestion GI Upset > 30mins: 2= Nausea/Diarrhea Tremor Observation of Outstretched Hands: 0= None Yawning Observation: 1= 1-2x During Session Anxiety or Irritability: 2=Irritable/Anxious Goose Flesh Skin: 3=Piloerection COWS Score: 14 S Progress Note (SOAP) Subjective: Diarrhea, Anxious, Body Aches, Sweating. Objective: PT. A & O X 2 (UNCERTAIN ABOUT DAY / DATE). PT. OBSERVED AMBULATING ON UNIT. NO ACUTE DISTRESS. 03/02/17 12:05 Vital Signs Temperature 96.9 F L 03/02/17 09:21 Pulse Rate 73 03/02/17 09:21 Respiratory Rate 17 03/02/17 09:21 Blood Pressure 132/78 03/02/17 09:21 O2 Sat by Pulse Oximetry (%) Laboratory Tests 03/01/17 03/02/17 03/02/17 21:23 07:54 07:54 WBC 5.9 RBC 4.57 Hgb 12.7 Hct 39.8 MCV 87.0 MCH 27.9 MCHC 32.1 RDW 15.0 Plt Count 239 MPV 8.4 Sodium 139 Potassium 4.1 Chloride 107 Carbon Dioxide 24 Anion Gap 8 BUN 13 Creatinine 0.9 Creat Clearance w eGFR > 60 Random Glucose 140 H Calcium 8.1 L Total Bilirubin 0.3 D AST 13 L D ALT 27 Alkaline Phosphatase 58 Total Protein 6.5 Albumin 3.4 Urine Color Yellow Urine Appearance Clear Urine pH 7.0 Ur Specific [place] 1.028 Urine Protein Negative Urine Glucose (UA) Negative Urine Ketones Negative Urine Blood Negative Urine Nitrite Negative Urine Bilirubin Negative Urine Urobilinogen Negative RPR Titer 03/02/17 07:54 WBC RBC Hgb Hct MCV MCH MCHC RDW Plt Count MPV Sodium Potassium Chloride Carbon Dioxide Anion Gap BUN Creatinine Creat Clearance w eGFR Random Glucose Calcium Total Bilirubin AST ALT Alkaline Phosphatase Total Protein Albumin Urine Color Urine Appearance Urine pH Ur Specific [place] Urine Protein Urine Glucose (UA) Urine Ketones Urine Blood Urine Nitrite Urine Bilirubin Urine Urobilinogen RPR Titer Nonreactive LABS NOTED. Assessment: 03/02/17 12:06 WITHDRAWAL SYMPTOMS. Plan: CONTINUE DETOX. BGM ACBK FOR ELEVATED ADMISSION RANDOM GLUCOSE LEVEL. INCREASE DAILY PO FLUID INTAKE.
--- NOTE | 2017-03-02 13:04 | EKG ---
Test Reason : Blood Pressure : / mmHG Vent. Rate : 068 BPM Atrial Rate : 068 BPM P-R Int : 164 ms QRS Dur : 078 ms QT Int : 396 ms P-R-T Axes : 079 076 035 degrees QTc Int : 421 ms NORMAL SINUS RHYTHM POSSIBLE LEFT ATRIAL ENLARGEMENT BORDERLINE ECG WHEN COMPARED WITH ECG OF 26-JAN-2017 19:43, CRITERIA FOR SEPTAL INFARCT ARE NO LONGER PRESENT Confirmed by XANDER MILLER, JOEL ([id number]) on 03/02/2017 1:04:04 PM Referred By: Confirmed By:JOEL TERRELL MD
--- NOTE | 2017-03-02 14:30 | CONSULT ---
[facility] Psychiatric Consult - Data Date of interview: 03/02/17 Admission source: [facility] Identifying data: Readmission to [facility] [place] for this 36 y/o AA male seeking detox treatment on for alcohol,opiate and cocaine dependence.Patient is single without children,homeless,currently unemployed and reportedly deprived of financial asssistance. Substance Abuse History: Patient reported to this abstract writer that he uses marihuana, cocaine and alcohol (in spite of negative tox screen for the former substances) .Sporadic usage of opiates. See [facility] report for details : Smoking history: Current every day smoker. Have you smoked in the past 12 months: Yes. Aproximately how many cigarettes per day: 20. Cigars Per Day: 0. Hx Chewing Tobacco Use: No. Initiated information on smoking cessation: Yes. 'Breaking Loose' booklet given: 03/01/17. - Substance & Tx. History. Hx Alcohol Use: Yes. Hx Substance Use: Yes. Substance Use Type: Alcohol, Opiates. Hx Substance Use Treatment: Yes (01/2017 [facility]) Medical History: History of withdrawal-related seizures and bronchial asthma. Psychiatric History: Patient admits to a remote history of a psychiatric hospitalization at [facility] in [facility].Precipitant : overdose with drugs in a suicide attempt.Diagnosed with Schizoaffective Disorder as per records but,in this interview,Mr Banuelos denies having a mental illness.He declares no prior exposure to psychotropic medications (which contradicts previous report of past trials of olanzapine,risperdal and quetiapine).Patient is a guarded,indifferent and unreliable historian.He indicates that he is NOT interested in the resumption of care with psychotropic drugs other than medications currently necessary for detoxification purposes. Physical/Sexual Abuse/Trauma History: Patient denies history of abuse.Noted history of incarcerations. Additional Comment: Urine Drug Screen Results: OPI-Opiates.Noted. Mental Status Exam - Mental Status Exam Alert and Oriented to: Time, Place, Person Cognitive Function: Good Patient Appearance: Well Groomed Mood: Withdrawn, Anxious Affect: Mood Congruent Patient Behavior: Fatigued, Cooperative (superficially) Speech Pattern: Clear Voice Loudness: Normal Thought Process: Circumstantial, Goal Oriented Thought Disorder: Bizarre Hallucinations: Denies Suicidal Ideation: Denies Homicidal Ideation: Denies Insight/Judgement: Poor Sleep: Well Appetite: Good Muscle strength/Tone: Normal Gait/Station: Normal Psychiatric Findings - Problem List ([place] 1, 2,3) (1) Opioid dependence with withdrawal Current Visit: Yes Status: Acute (2) Alcohol dependence with uncomplicated withdrawal Current Visit: Yes Status: Acute (3) Nicotine dependence Current Visit: Yes Status: Acute Qualifiers: Nicotine product type: cigarettes Substance use status: in withdrawal Qualified Code(s): F17.213 - Nicotine dependence, cigarettes, with withdrawal (4) Substance induced mood disorder Current Visit: Yes Status: Acute (5) Schizoaffective disorder Current Visit: No Status: Chronic Comment: As per records.Not recognized by the patient.Non-adherent to medications + OPD treatment. - Initial Treatment Plan Initial Treatment Plan: Psychoeducation.Past records are reviewed.Detoxification in progress.Patient is presented with the option of resuming maintenance treatment (regardless of current asymptomatic status) with an atypical agent + mood stabilizer : he refuses.Mr Banuelos is made aware of the risks (relapses,rehospitalizations,suicidality,psychotic episodes,marc, behavioral dyscontrol,social downdrift) attached to refusal of treatment and the benefits of continuity of care (wellness,euthymia,mental stability,adequate global functioning).Survey of pharmacy claims : NO known medications.Observe clinical course.
[2017-03-02 18:31] LABS: URINE LEUK ESTERASE Negative (NEGATIVE)
[2017-03-02] MEDS: THIAMINE HCL 100 MG TABLET (FP) PO SCH (22:05)
[2017-03-03] MEDS: chlordiazePOXIDE HCL 25 MG CAPSULE PO SCH ×3 (05:24→17:33)
[2017-03-03] MEDS: RANITIDINE HCL 150 MG TABLET (FP) PO SCH ×2 (10:25→22:23)
[2017-03-03] MEDS: PRENATAL VITAMINS W/ FOLIC ACID TABLET (FP) PO SCH (10:25)
[2017-03-03] MEDS: METHADONE HCL 5 MG TABLET (FOR DETOX USE ONLY) PO SCH (10:25)
[2017-03-03] MEDS: NICOTINE 21 MG/24 HOURS TOPICAL PATCH TD SCH (10:26)
--- NOTE | 2017-03-03 11:56 | PN ---
[facility] CIWA - CIWA Score Nausea/Vomitin-No Nausea/No Vomiting Muscle Tremors: 2 Anxiety: 4-Mod. Anxious/Guarded Agitation: 2 Paroxysmal Sweats: 4-Forehead w/Sweat Beads Orientation: 0-Oriented Tacttile Disturbances: 3-Moderate Itch/Numb/Burn Auditory Disturbances: 0-None Visual Disturbances: 2-Mild Sensitivity Headache: 0-None Present CIWA-Ar Total Score: 17 S COWS - Scale Resting Pulse: 0= [place] 80 or Below Sweatin=Flushed/Facial Moisture Restless Observation: 0= Sits Still Pupil Size: 0= Normal to Room Light Bone or Joint Aches: 1= Mild Discomfort Runny Nose/ Eye Tearin= None GI Upset > 30mins: 0= None Tremor Observation of Outstretched Hands: 2= Slight Tremor Visible Yawning Observation: 2= >3x During Session Anxiety or Irritability: 2=Irritable/Anxious Goose Flesh Skin: 3=Piloerection COWS Score: 12 S Progress Note (SOAP) Subjective: Fatigue, H/A, Sweating, Tremors. Objective: PT. A & O X 3, OBSERVED AMBULATING ON UNIT. NO ACUTE DISTRESS. 03/03/17 11:55 Vital Signs Temperature 97.9 F 03/03/17 09:22 Pulse Rate 74 03/03/17 09:22 Respiratory Rate 18 03/03/17 09:22 Blood Pressure 130/83 03/03/17 09:22 O2 Sat by Pulse Oximetry (%) Laboratory Tests 03/01/17 03/02/17 03/02/17 21:23 07:54 07:54 WBC 5.9 RBC 4.57 Hgb 12.7 Hct 39.8 MCV 87.0 MCH 27.9 MCHC 32.1 RDW 15.0 Plt Count 239 MPV 8.4 Sodium 139 Potassium 4.1 Chloride 107 Carbon Dioxide 24 Anion Gap 8 BUN 13 Creatinine 0.9 Creat Clearance w eGFR > 60 POC Glucometer Random Glucose 140 H Calcium 8.1 L Total Bilirubin 0.3 D AST 13 L D ALT 27 Alkaline Phosphatase 58 Total Protein 6.5 Albumin 3.4 Urine Color Yellow Urine Appearance Clear Urine pH 7.0 Ur Specific [place] 1.028 Urine Protein Negative Urine Glucose (UA) Negative Urine Ketones Negative Urine Blood Negative Urine Nitrite Negative Urine Bilirubin Negative Urine Urobilinogen Negative Ur Leukocyte Esterase Negative RPR Titer Hepatitis C Antibody 03/02/17 03/02/17 03/03/17 07:54 12:10 05:24 WBC RBC Hgb Hct MCV MCH MCHC RDW Plt Count MPV Sodium Potassium Chloride Carbon Dioxide Anion Gap BUN Creatinine Creat Clearance w eGFR POC Glucometer 84 Random Glucose Calcium Total Bilirubin AST ALT Alkaline Phosphatase Total Protein Albumin Urine Color Urine Appearance Urine pH Ur Specific [place] Urine Protein Urine Glucose (UA) Urine Ketones Urine Blood Urine Nitrite Urine Bilirubin Urine Urobilinogen Ur Leukocyte Esterase RPR Titer Nonreactive Hepatitis C Antibody <0.1 LABS NOTED. Assessment: 03/03/17 11:55 WITHDRAWAL SYMPTOMS. Plan: CONTINUE DETOX. INCREASE DAILY PO FLUID INTAKE.
[2017-03-03] MEDS: chlordiazePOXIDE 5 MG CAPSULE PO SCH (22:23)
[2017-03-03] MEDS: THIAMINE HCL 100 MG TABLET (FP) PO SCH (22:23)
[2017-03-04] MEDS: chlordiazePOXIDE 5 MG CAPSULE PO SCH ×3 (05:47→16:52)
[2017-03-04] MEDS: NICOTINE 21 MG/24 HOURS TOPICAL PATCH TD SCH (10:22)
[2017-03-04] MEDS: PRENATAL VITAMINS W/ FOLIC ACID TABLET (FP) PO SCH (10:22)
[2017-03-04] MEDS: METHADONE HCL 5 MG TABLET (FOR DETOX USE ONLY) PO SCH (10:22)
[2017-03-04] MEDS: RANITIDINE HCL 150 MG TABLET (FP) PO SCH ×2 (10:22→22:14)
--- NOTE | 2017-03-04 12:29 | PN ---
[facility] Progress Note (SOAP) Subjective: Anxious, Sweating, Fatigue. Objective: PT. A & O X 3, OBSERVED AMBULATING ON UNIT. NO ACUTE DISTRESS. 03/04/17 12:24 Vital Signs Temperature 96.6 F L 03/04/17 09:23 Pulse Rate 77 03/04/17 09:23 Respiratory Rate 18 03/04/17 09:23 Blood Pressure 134/78 03/04/17 09:23 O2 Sat by Pulse Oximetry (%) Laboratory Tests 03/01/17 03/02/17 03/02/17 21:23 07:54 07:54 WBC 5.9 RBC 4.57 Hgb 12.7 Hct 39.8 MCV 87.0 MCH 27.9 MCHC 32.1 RDW 15.0 Plt Count 239 MPV 8.4 Sodium 139 Potassium 4.1 Chloride 107 Carbon Dioxide 24 Anion Gap 8 BUN 13 Creatinine 0.9 Creat Clearance w eGFR > 60 POC Glucometer Random Glucose 140 H Calcium 8.1 L Total Bilirubin 0.3 D AST 13 L D ALT 27 Alkaline Phosphatase 58 Total Protein 6.5 Albumin 3.4 Urine Color Yellow Urine Appearance Clear Urine pH 7.0 Ur Specific [place] 1.028 Urine Protein Negative Urine Glucose (UA) Negative Urine Ketones Negative Urine Blood Negative Urine Nitrite Negative Urine Bilirubin Negative Urine Urobilinogen Negative Ur Leukocyte Esterase Negative RPR Titer Hepatitis C Antibody 03/02/17 03/02/17 03/03/17 07:54 12:10 05:24 WBC RBC Hgb Hct MCV MCH MCHC RDW Plt Count MPV Sodium Potassium Chloride Carbon Dioxide Anion Gap BUN Creatinine Creat Clearance w eGFR POC Glucometer 84 Random Glucose Calcium Total Bilirubin AST ALT Alkaline Phosphatase Total Protein Albumin Urine Color Urine Appearance Urine pH Ur Specific [place] Urine Protein Urine Glucose (UA) Urine Ketones Urine Blood Urine Nitrite Urine Bilirubin Urine Urobilinogen Ur Leukocyte Esterase RPR Titer Nonreactive Hepatitis C Antibody <0.1 03/04/17 06:06 WBC RBC Hgb Hct MCV MCH MCHC RDW Plt Count MPV Sodium Potassium Chloride Carbon Dioxide Anion Gap BUN Creatinine Creat Clearance w eGFR POC Glucometer 97 Random Glucose Calcium Total Bilirubin AST ALT Alkaline Phosphatase Total Protein Albumin Urine Color Urine Appearance Urine pH Ur Specific [place] Urine Protein Urine Glucose (UA) Urine Ketones Urine Blood Urine Nitrite Urine Bilirubin Urine Urobilinogen Ur Leukocyte Esterase RPR Titer Hepatitis C Antibody LABS NOTED. Assessment: 03/04/17 12:25 WITHDRAWAL SYMPTOMS. Plan: CONTINUE DETOX. INCREASE DAILY PO FLUID INTAKE.
[2017-03-04] MEDS: chlordiazePOXIDE HCL 10 MG CAPSULE PO SCH (22:14)
[2017-03-04] MEDS: THIAMINE HCL 100 MG TABLET (FP) PO SCH (22:14)
[2017-03-05] MEDS: chlordiazePOXIDE HCL 10 MG CAPSULE PO SCH ×2 (05:19→10:30)
[2017-03-05 09:19] VITALS: BP 143/91; PULSE 79; TEMP 95.7
[2017-03-05] MEDS ORDERED: METHADONE HCL 10 MG TABLET (FOR DETOX USE ONLY) PO SCH (10:00)
[2017-03-05] MEDS: NICOTINE 21 MG/24 HOURS TOPICAL PATCH TD SCH (10:30)
[2017-03-05] MEDS: PRENATAL VITAMINS W/ FOLIC ACID TABLET (FP) PO SCH (10:30)
[2017-03-05] MEDS: RANITIDINE HCL 150 MG TABLET (FP) PO SCH (10:30)
--- NOTE | 2017-03-05 19:33 | DS ---
[facility] Detox Discharge Summary Admission Date: 03/01/17 Discharge Date: 03/05/17 - History Present History: Alcohol Dependence, Opioid Dependence Additional Comments: AT TIME OF DISCHARGE, PATIENT DENIES CURRENT DETOX SYMPTOMS AND REPORTS THAT HE FEELS WELL OVERALL. PATIENT ADVISED TO CONSIDER LOCAL 12-STEP / NA / AA OUTPATIENT SUPPORT GROUP TREATMENT PROGRAMS FOR AFTERCARE. PATIENT WAS DISCHARGED FROM DETOX UNIT IN STABLE MEDICAL CONDITION. Pertinent Past History: Asthma, History of Seizures (Due to Withdrawal), Schizoaffective Disorder, GERD , Nicotine Dependence. - Physical Exam Results Vital Signs: Vital Signs Temperature 95.7 F L 03/05/17 09:18 Pulse Rate 79 03/05/17 09:18 Respiratory Rate 19 03/05/17 09:18 Blood Pressure 143/91 03/05/17 09:18 O2 Sat by Pulse Oximetry (%) Pertinent Admission Physical Exam Findings: WITHDRAWAL SYMPTOMS. Laboratory Tests 03/01/17 03/02/17 03/02/17 21:23 07:54 07:54 WBC 5.9 RBC 4.57 Hgb 12.7 Hct 39.8 MCV 87.0 MCH 27.9 MCHC 32.1 RDW 15.0 Plt Count 239 MPV 8.4 Sodium 139 Potassium 4.1 Chloride 107 Carbon Dioxide 24 Anion Gap 8 BUN 13 Creatinine 0.9 Creat Clearance w eGFR > 60 POC Glucometer Random Glucose 140 H Calcium 8.1 L Total Bilirubin 0.3 D AST 13 L D ALT 27 Alkaline Phosphatase 58 Total Protein 6.5 Albumin 3.4 Urine Color Yellow Urine Appearance Clear Urine pH 7.0 Ur Specific [place] 1.028 Urine Protein Negative Urine Glucose (UA) Negative Urine Ketones Negative Urine Blood Negative Urine Nitrite Negative Urine Bilirubin Negative Urine Urobilinogen Negative Ur Leukocyte Esterase Negative RPR Titer Hepatitis C Antibody 03/02/17 03/02/17 03/03/17 07:54 12:10 05:24 WBC RBC Hgb Hct MCV MCH MCHC RDW Plt Count MPV Sodium Potassium Chloride Carbon Dioxide Anion Gap BUN Creatinine Creat Clearance w eGFR POC Glucometer 84 Random Glucose Calcium Total Bilirubin AST ALT Alkaline Phosphatase Total Protein Albumin Urine Color Urine Appearance Urine pH Ur Specific [place] Urine Protein Urine Glucose (UA) Urine Ketones Urine Blood Urine Nitrite Urine Bilirubin Urine Urobilinogen Ur Leukocyte Esterase RPR Titer Nonreactive Hepatitis C Antibody <0.1 03/04/17 03/05/17 06:06 06:17 WBC RBC Hgb Hct MCV MCH MCHC RDW Plt Count MPV Sodium Potassium Chloride Carbon Dioxide Anion Gap BUN Creatinine Creat Clearance w eGFR POC Glucometer 97 94 Random Glucose Calcium Total Bilirubin AST ALT Alkaline Phosphatase Total Protein Albumin Urine Color Urine Appearance Urine pH Ur Specific [place] Urine Protein Urine Glucose (UA) Urine Ketones Urine Blood Urine Nitrite Urine Bilirubin Urine Urobilinogen Ur Leukocyte Esterase RPR Titer Hepatitis C Antibody LABS NOTED. - Treatment Hospital Course: Detox Protocol Followed, Detoxed Safely, Responded well, Discharged Condition Good Patient has Accepted a Rehab Referral to: PT ADVISED TO CONSIDER LOCAL 12-STEP/ NA/AA OUTPATIENT SUPPORT GROUPS. - Medication Discharge Medications: Ambulatory Orders NK [No Known Home Medication] 01/26/17 - Diagnosis (1) Alcohol dependence with uncomplicated withdrawal Status: Acute (2) Nicotine dependence Status: Acute Qualifiers: Nicotine product type: cigarettes Substance use status: in withdrawal Qualified Code(s): F17.213 - Nicotine dependence, cigarettes, with withdrawal (3) Opioid dependence with withdrawal Status: Acute (4) Asthma Status: Chronic Qualifiers: Asthma severity: mild Asthma persistence: unspecified Asthma complication type: uncomplicated Qualified Code(s): J45.909 - Unspecified asthma, uncomplicated (5) GERD (gastroesophageal reflux disease) Status: Chronic Qualifiers: Esophagitis presence: without esophagitis Qualified Code(s): K21.9 - Gastro -esophageal reflux disease without esophagitis (6) Schizoaffective disorder Status: Chronic Qualifiers: Schizoaffective disorder type: unspecified Qualified Code(s): F25.9 - Schizoaffective disorder, unspecified (7) Substance induced mood disorder Status: Acute - AMA Did Patient Leave Against Medical Advice: No
[2017-03-06] MEDS ORDERED: METHADONE HCL 5 MG TABLET (FOR DETOX USE ONLY) PO SCH (06:00)
== END 2017-03-05 11:58 | disposition home or self-care (01) | DRG 773 ==
LOC: YASAS 12:34 → Y3N 18:38
PROVIDERS: ADMIT Internal Medicine; ATTEND Internal Medicine
PROC: HZ2ZZZZ Detoxification Services for Substance Abuse Treatment (ICD-10-PCS; principal; 2017-03-01)
DX: F11.23 Opioid dependence with withdrawal (principal); F10.230 Alcohol dependence with withdrawal, uncomplicated; F17.213 Nicotine dependence, cigarettes, with withdrawal; F25.9 Schizoaffective disorder, unspecified; F19.24 Other psychoactive substance dependence with psychoactive substance-induced mood disorder; J45.909 Unspecified asthma, uncomplicated; K21.9 Gastro-esophageal reflux disease without esophagitis; Z86.69 Personal history of other diseases of the nervous system and sense organs
CPT/HCPCS: 36415; 80053; 81003; 85027; 86593; 86803; 93005; 93010

== ENCOUNTER 2017-08-29 23:33 | Inpatient (IN) | payer OTHER ==
[2017-08-29 23:55] VITALS: BMI 26.2
--- NOTE | 2017-08-30 00:04 | HP ---
COWS - Scale Resting Pulse: 0= NE 80 or Below Sweatin= No chills or Flushing Restless Observation: 3= Extraneous Movement Pupil Size: 1= Pupils >than Normal Bone or Joint Aches: 4=Acute Joint/Muscle Pain Runny Nose/ Eye Tearin= Nasal Congestion GI Upset > 30mins: 3= Vomiting/Diarrhea Tremor Observation: 1= Tremor [place], Not Seen Yawning Observation: 1= 1-2x During Session Anxiety or Irritability: 2=Irritable/Anxious Goose Flesh Skin: 0=Smooth Skin COWS Score: 16 Admission [facility] - HPI Chief Complaint: SEEKING DETOX FOR OPIATE RELATED WITHDRAWAL SX'S Allergies/Adverse Reactions: Allergies Allergy/AdvReac Type Severity Reaction Status Date / Time chicken derived Allergy Severe Vomiting Verified 08/29/17 23:56 History of Present Illness: 37 Y.O. MLAE WITH HX/O OPIOID DEPENDENCE KNOWN TO THIS PROGRAM HERE SEEKING DETOX TXMENT. CLIENT IS SELF REFERRED. DENIES ANY SIGNIFICANT PERIOD OF CLEAN TIME. DENIES HX/O DRUG OVERDOSE, SI/HI, A/V HALLUCINATIONS Exam Limitations: No Limitations - Ebola screening Have you traveled outside of the country in the last 21 days: No Have you had contact with anyone from an Ebola affected area: No Have you been sick,other than usual withdrawal symptoms: No Do you have a fever: No - Review of Systems Constitutional: Chills, Loss of Appetite, Malaise, Night Sweats, Unintentional Wgt. Loss EENT: reports: No Symptoms Reported Respiratory: reports: No Symptoms reported Cardiac: reports: No Symptoms Reported GI: reports: Nausea, Poor Appetite, Vomiting : reports: No Symptoms Reported Musculoskeletal: reports: Back Pain, Joint Pain Integumentary: reports: Other (SOME ABRASIONS TO HANDS) Neuro: reports: No Symptoms reported Endocrine: reports: No Symptoms Reported Hematology: reports: No Symptoms Reported Psychiatric: reports: other (CHIZOPHRENIA AND BIPOLAR) Other Systems: Reviewed and Negative Patient History - Patient Medical History Hx Anemia: No Hx Asthma: Yes Hx Chronic Obstructive Pulmonary Disease (COPD): No Hx Cancer: No Hx Cardiac Disorders: No Hx Congestive Heart Failure: No Hx Hypertension: No Hx Hypercholesterolemia: No Hx Pacemaker: No HX Cerebrovascular Accident: No Hx Seizures: No Hx Dementia: No Hx Diabetes: No Hx Gastrointestinal Disorders: Yes (GERD) Hx Liver Disease: No Hx Genitourinary Disorders: No Hx Sexually Transmitted Disorders: No Hx Renal Disease (ESRD): No Hx Thyroid Disease: No Hx Human Immunodeficiency Virus (HIV): No Hx Hepatitis C: No Hx Depression: No Hx Suicide Attempt: No Hx Bipolar Disorder: No Hx Schizophrenia: Yes Other Medical History: BIPOLAR - Patient Surgical History Past Surgical History: No Hx Neurologic Surgery: No Hx Cataract Extraction: No Hx Cardiac Surgery: No Hx Lung Surgery: No Hx Breast Surgery: No Hx Breast Biopsy: No Hx Abdominal Surgery: No Hx Appendectomy: No Hx Cholecystectomy: No Hx Genitourinary Surgery: No Hx Section: No Hx Orthopedic Surgery: No Anesthesia Reaction: No - PPD History Date: 01/28/17 Results: 0 mm PPD to be Administered?: No - Smoking Cessation Smoking history: Current every day smoker Have you smoked in the past 12 months: Yes Aproximately how many cigarettes per day: 4 Cigars Per Day: 0 Hx Chewing Tobacco Use: No Initiated information on smoking cessation: Yes 'Breaking Loose' booklet given: 08/30/17 - Substance & Tx. History Hx Alcohol Use: No Hx Substance Use: Yes Substance Use Type: Heroin Hx Substance Use Treatment: Yes ([facility]) - Substances Abused HEROIN Route: Inhalation Frequency: Daily Amount used: 8BAGS Age of first use: 20 Date of Last Use: 08/28/17 Family Disease History - Family Disease History Family Disease History: Other: Father (no contact), Mother (no contact), Brother (no contact), Sister (no contact) Admission Physical Exam BHS - Vital Signs Vital Signs: Vital Signs - 24 hr 08/29/17 23:53 Temperature 97.7 F Pulse Rate 78 Respiratory 18 Rate Blood Pressure 107/63 - Physical General Appearance: Yes: Appropriately Dressed, Mild Distress, Irritable, Other (DROWSI) HEENTM: Yes: EOMI, Normocephalic, Normal Voice, MARCUS, Pharynx Normal, Nasal Congestion Respiratory: Yes: Chest Non-Tender, Lungs Clear, Normal Breath Sounds, No Respiratory Distress, No Accessory Muscle Use Neck: Yes: No masses,lesions,Nodules, Supple, Trachea in good position Breast: Yes: Breast Exam Deferred Cardiology: Yes: Regular Rhythm, Regular Rate, S1, S2 Abdominal: Yes: Normal Bowel Sounds, Non Tender, Flat, Soft Genitourinary: Yes: Within Normal Limits Back: Yes: Normal Inspection Musculoskeletal: Yes: full range of Motion, Gait Steady, Other (JOINT PAIN) Extremities: Yes: Normal Range of Motion (WITH PAIN), Non-Tender Neurological: Yes: Confused, Disoriented, Other (AWAKE) Integumentary: Yes: Normal Color, Dry, Warm Lymphatic: Yes: Within Normal Limits - Diagnostic (1) Nicotine dependence Current Visit: Yes Status: Chronic Qualifiers: Nicotine product type: cigarettes Substance use status: in withdrawal Qualified Code(s): F17.213 - Nicotine dependence, cigarettes, with withdrawal (2) Opioid dependence with withdrawal Current Visit: Yes Status: Acute (3) Substance induced mood disorder Current Visit: Yes Status: Suspected (4) Asthma Current Visit: Yes Status: Chronic Qualifiers: Asthma severity: mild Asthma persistence: unspecified Asthma complication type: uncomplicated Qualified Code(s): J45.909 - Unspecified asthma, uncomplicated (5) Cocaine dependence Current Visit: Yes Status: Chronic Qualifiers: Substance use status: uncomplicated Qualified Code(s): F14.20 - Cocaine dependence, uncomplicated (6) GERD (gastroesophageal reflux disease) Current Visit: Yes Status: Chronic Qualifiers: Esophagitis presence: without esophagitis Qualified Code(s): K21.9 - Gastro -esophageal reflux disease without esophagitis (7) Schizoaffective disorder Current Visit: Yes Status: Chronic Qualifiers: Schizoaffective disorder type: unspecified Qualified Code(s): F25.9 - Schizoaffective disorder, unspecified Comment: As per records.Not recognized by the patient.Non-adherent to medications + OPD treatment. (8) Bipolar disorder Current Visit: Yes Status: Chronic Cleared for Admission [facility] - Detox or Rehab [facility] Level of Care: Medically Managed Detox Regimen/Protocol: Methadone Claeared for Rehab Admission: No S Breath Alcohol Content Breath Alcohol Content: 0 Urine Drug Screen - Results Drug Screen Negative: No Urine Drug Screen Results: CURTIS-Cocaine, OPI-Opiates
[2017-08-30] MEDS ORDERED: NICOTINE POLACRILEX 2 MG GUM BC PRN (00:14)
[2017-08-30] MEDS ORDERED: MAG HYDROX/AL HYDROX/SIMETH 30 ML UNIT-DOSE CUP PO PRN (00:14)
[2017-08-30] MEDS ORDERED: MAGNESIUM HYDROX 2400MG/30ML ORAL SUSPENSION 30 ML CUP PO PRN (00:14)
[2017-08-30] MEDS ORDERED: MENTHOL/PHENOL 1 EACH UD MM PRN (00:14)
[2017-08-30] MEDS ORDERED: LOPERAMIDE HCL 2 MG CAPSULE PO PRN (00:14)
[2017-08-30] MEDS ORDERED: METHADONE HCL 10 MG TABLET (FOR DETOX USE ONLY) PO ONE ×3 (00:14→23:00)
[2017-08-30] MEDS ORDERED: guaiFENesin/D-METHORPHAN HB 10 ML UNIT-DOSE CUPS PO PRN (00:14)
[2017-08-30] MEDS ORDERED: P-EPHED 60MG/TRIPROLIDI 2.5MG TABLET PO PRN (00:14)
[2017-08-30] MEDS ORDERED: IBUPROFEN 400 MG TABLET (FP) PO PRN (00:14)
[2017-08-30] MEDS ORDERED: MAGNESIUM CITRATE 300 ML BOTTLE PO PRN (00:14)
[2017-08-30] MEDS ORDERED: ALBUTEROL SO4 8 GM HFA INHALER IH PRN (00:15)
[2017-08-30] MEDS: diazePAM 5 MG TABLET PO PRN (00:46)
[2017-08-30] MEDS: BACITRACIN 0.9 GM PACKET TP SCH ×2 (10:12→22:13)
[2017-08-30] MEDS: PRENATAL VITAMINS W/ FOLIC ACID TABLET (FP) PO SCH (10:12)
[2017-08-30] MEDS: NAPROXEN 250 MG TABLET (FP) PO SCH ×2 (10:12→22:12)
[2017-08-30] MEDS: NICOTINE 14 MG/24 HOURS TOPICAL PATCH TD SCH (10:16)
--- NOTE | 2017-08-30 10:55 | PN ---
BHS COWS - Scale Resting Pulse: 0= [place] 80 or Below Sweatin= Chills/Flushing Restless Observation: 0= Sits Still Pupil Size: 0= Normal to Room Light Bone or Joint Aches: 4=Acute Joint/Muscle Pain Runny Nose/ Eye Tearin= None GI Upset > 30mins: 0= None Tremor Observation of Outstretched Hands: 0= None Yawning Observation: 2= >3x During Session Anxiety or Irritability: 2=Irritable/Anxious Goose Flesh Skin: 3=Piloerection COWS Score: 12 BHS Progress Note (SOAP) Subjective: Body Aches, Anxious, Interrupted Sleep, Fatigue. Objective: PATIENT A & O X 2 (UNCERTAIN ABOUT CURRENT DAY / DATE). PATIENT OBSERVED AMBULATING ON UNIT. NO ACUTE DISTRESS. 08/30/17 10:53 Vital Signs Temperature 97.1 F L 08/30/17 09:02 Pulse Rate 69 08/30/17 09:02 Respiratory Rate 16 08/30/17 09:02 Blood Pressure 97/66 08/30/17 09:02 O2 Sat by Pulse Oximetry (%) ADMISSION LABS NOT YET DRAWN. 08/30/17 10:53 Assessment: 08/30/17 10:54 WITHDRAWAL SYMPTOMS. Plan: CONTINUE DETOX. INCREASE DAILY PO FLUID INTAKE. NAPROXEN FOR BODY ACHES.
--- NOTE | 2017-08-30 13:04 | CONSULT ---
[facility] Psychiatric Consult - Data Date of interview: 08/30/17 Admission source: [facility] Identifying data: Patient is a 37 year old single male, without kids, unemployed , and currently homeless. This is one of multiple admissions for patient. Pt. admitted to for cocaine and opiate dependence. Substance Abuse History: Smoking Cessation. Smoking history: Current every day smoker. Have you smoked in the past 12 months: Yes. Aproximately how many cigarettes per day: 4. Cigars Per Day: 0. Hx Chewing Tobacco Use: No. Initiated information on smoking cessation: Yes. 'Breaking Loose' booklet given : 08/30/17. - Substance & Tx. History. Hx Alcohol Use: No. Hx Substance Use: Yes. Substance Use Type: Heroin. Hx Substance Use Treatment: Yes ([facility]). - Substances Abused. HEROIN. Route: Inhalation. Frequency: Daily. Amount used: 8BAGS. Age of first use: 20. Date of Last Use: 08/28/17 Medical History: Asthma, GERD. Psychiatric History: Patient presented as guarded. Pt. is unreliable and is minimizing his psychiatric history. Pt. denies h/o psychiatric hospitalization, outpatient care and suicide attempt. As per Dr. Vanegas note on 03/02/17 patient admitted to multiple psychiatric hospitalizations in several [facility] hospitals. Pt. stated he was diagnosed with schizoaffective disorder but has a h/o nonadherence to psychiatric treatment. Physical/Sexual Abuse/Trauma History: Denies. Mental Status Exam - Mental Status Exam Alert and Oriented to: Time, Place, Person Cognitive Function: Good Patient Appearance: Well Groomed Mood: Withdrawn Affect: Flat Patient Behavior: Guarded Speech Pattern: Delayed Voice Loudness: Moderately Soft/Quiet Thought Process: Goal Oriented Thought Disorder: Not Present Hallucinations: Denies Suicidal Ideation: Denies Homicidal Ideation: Denies Insight/Judgement: Poor Sleep: Fair Appetite: Fair Muscle strength/Tone: Normal Gait/Station: Normal (Did not observe patient's gait.) Psychiatric Findings - Problem List ([place] 1, 2,3) (1) Opioid dependence with withdrawal Current Visit: Yes Status: Acute (2) Asthma Current Visit: Yes Status: Chronic Qualifiers: Asthma severity: mild Asthma persistence: unspecified Asthma complication type: uncomplicated Qualified Code(s): J45.909 - Unspecified asthma, uncomplicated (3) GERD (gastroesophageal reflux disease) Current Visit: Yes Status: Chronic Qualifiers: Esophagitis presence: without esophagitis Qualified Code(s): K21.9 - Gastro -esophageal reflux disease without esophagitis (4) Nicotine dependence Current Visit: Yes Status: Chronic Qualifiers: Nicotine product type: cigarettes Substance use status: in withdrawal Qualified Code(s): F17.213 - Nicotine dependence, cigarettes, with withdrawal (5) Schizoaffective disorder Current Visit: Yes Status: Chronic Qualifiers: Schizoaffective disorder type: unspecified Qualified Code(s): F25.9 - Schizoaffective disorder, unspecified Comment: As per records.Not recognized by the patient.Non-adherent to medications + OPD treatment. (6) Substance induced mood disorder Current Visit: Yes Status: Acute - Initial Treatment Plan Initial Treatment Plan: Psychoeducation provided. Detoxification in progress. Observation.
--- NOTE | 2017-08-30 13:25 | EKG ---
Test Reason : Blood Pressure : / mmHG Vent. Rate : 069 BPM Atrial Rate : 069 BPM P-R Int : 180 ms QRS Dur : 084 ms QT Int : 400 ms P-R-T Axes : 078 070 006 degrees QTc Int : 428 ms NORMAL SINUS RHYTHM ST ELEVATION, CONSIDER EARLY REPOLARIZATION, PERICARDITIS, OR INJURY ABNORMAL ECG WHEN COMPARED WITH ECG OF 01-MAR-2017 20:52, NO SIGNIFICANT CHANGE WAS FOUND Confirmed by Dave Mcdonald ([id number]) on 08/30/2017 1:25:32 PM Referred By: Confirmed By:Dave Mcdonald
[2017-08-30] MEDS ORDERED: MELATONIN 5 MG TABLETS PO PRN (22:00)
[2017-08-30] MEDS: THIAMINE HCL 100 MG TABLET (FP) PO SCH (22:12)
[2017-08-31] MEDS ORDERED: RANITIDINE HCL 150 MG TABLET (FP) PO ONE (06:05)
[2017-08-31] MEDS: diazePAM 5 MG TABLET PO PRN ×2 (06:23→13:15)
[2017-08-31] MEDS ORDERED: METHADONE HCL 10 MG TABLET (FOR DETOX USE ONLY) PO ONE (10:00)
[2017-08-31] MEDS: PRENATAL VITAMINS W/ FOLIC ACID TABLET (FP) PO SCH (10:04)
[2017-08-31] MEDS: NICOTINE 14 MG/24 HOURS TOPICAL PATCH TD SCH (10:04)
[2017-08-31] MEDS: BACITRACIN 0.9 GM PACKET TP SCH ×2 (10:04→22:55)
[2017-08-31] MEDS: NAPROXEN 250 MG TABLET (FP) PO SCH ×2 (10:04→22:56)
[2017-08-31 10:22] LABS: HEMATOCRIT 36.9 % (35.4-49); HEMOGLOBIN 12.3 GM/dL (11.7-16.9); MCH 28.9 pg (25.7-33.7); MCHC 33.4 g/dl (32.0-35.9); MEAN CELL VOLUME 86.4 fl (80-96); MEAN PLT VOLUME 8.2 fl (7.5-11.1); PLATELET COUNT 222 K/MM3 (134-434); RBC 4.27 M/mm3 (4.00-5.60); RDW 14.8 % (11.9-15.9); WHITE BLOOD COUNT 5.3 K/mm3 (4.0-10.0)
[2017-08-31 10:34] LABS: CHLORIDE 104 mmol/L (98-107); POTASSIUM 4.5 mmol/L (3.5-5.1); SODIUM 138 mmol/L (136-145)
[2017-08-31 10:49] LABS: ALBUMIN 3.1 g/dl (3.4-5.0); ALK PHOS 52 U/L (45-117); ANION GAP 5 (8-16); BILIRUBIN,TOTAL 0.2 mg/dL (0.2-1.0); BLOOD UREA NITROGEN 14 mg/dL (7-18); CALCIUM 8.1 mg/dL (8.5-10.1); CO2 29 mmol/L (21-32); CREATININE 0.7 mg/dL (0.7-1.3); GLUCOSE,RANDOM 75 mg/dL (74-106); SGOT/AST 28 U/L (15-37); SGPT/ALT 35 U/L (12-78); TOT PROT 5.9 g/dl (6.4-8.2)
--- NOTE | 2017-08-31 11:51 | PN ---
BHS COWS - Scale Resting Pulse: 0= [place] 80 or Below Sweatin= Chills/Flushing Restless Observation: 1= Difficult to Sit Still Pupil Size: 0= Normal to Room Light Bone or Joint Aches: 4=Acute Joint/Muscle Pain Runny Nose/ Eye Tearin= None GI Upset > 30mins: 1= Stomach Cramp Tremor Observation of Outstretched Hands: 0= None Yawning Observation: 1= 1-2x During Session Anxiety or Irritability: 4=Extreme Anxiety Goose Flesh Skin: 0=Smooth Skin COWS Score: 12 BHS Progress Note (SOAP) Subjective: Stomach Cramping, Fatigue, Body Aches, Anxious. Patient reports that he fell on some boxes in a store approx. two weeks ago and that left ribcage area and left lower lateral aspect of abdomen have been hurting since that time. Patient reports that he did not go to ER or to Medical Provider for medical evaluation after fall occurred. Objective: PATIENT A & O X 2 (UNCERTAIN ABOUT CURRENT DAY / DATE). PATIENT OBSERVED AMBULATING ON UNIT. NO ACUTE DISTRESS. 08/31/17 11:45 Vital Signs Temperature 96.8 F L 08/31/17 09:13 Pulse Rate 67 08/31/17 09:13 Respiratory Rate 18 08/31/17 09:13 Blood Pressure 146/89 08/31/17 09:13 O2 Sat by Pulse Oximetry (%) Laboratory Tests 08/31/17 08/31/17 08/31/17 08:00 08:00 08:00 WBC 5.3 RBC 4.27 Hgb 12.3 Hct 36.9 MCV 86.4 MCH 28.9 MCHC 33.4 RDW 14.8 Plt Count 222 MPV 8.2 Sodium 138 Potassium 4.5 Chloride 104 Carbon Dioxide 29 D Anion Gap 5 L BUN 14 Creatinine 0.7 Creat Clearance w eGFR > 60 Random Glucose 75 D Calcium 8.1 L Total Bilirubin 0.2 AST 28 D ALT 35 D Alkaline Phosphatase 52 Total Protein 5.9 L Albumin 3.1 L HIV 1&2 Antibody Screen Negative HIV P24 Antigen Negative LABS NOTED. RPR, UA RESULTS PENDING. 08/31/17 11:46 Assessment: 08/31/17 11:46 WITHDRAWAL SYMPTOMS. Plan: CONTINUE DETOX. X-RAY OF LEFT RIBCAGE. RESULT PENDING.
[2017-08-31] MEDS: ACETAMINOPHEN 325 MG TABLET (FP) PO PRN (13:15)
[2017-08-31] MEDS ORDERED: CYCLOBENZAPRINE HCL 10 MG TABLET (FP) PO PRN (13:20)
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
[2017-08-31] MEDS: THIAMINE HCL 100 MG TABLET (FP) PO SCH (22:56)
[2017-09-01] MEDS: ACETAMINOPHEN 325 MG TABLET (FP) PO PRN (06:59)
[2017-09-01] MEDS: diazePAM 5 MG TABLET PO PRN ×2 (07:00→10:17)
[2017-09-01] MEDS ORDERED: METHADONE HCL 5 MG TABLET (FOR DETOX USE ONLY) PO ONE (10:00)
[2017-09-01] MEDS: BACITRACIN 0.9 GM PACKET TP SCH (10:16)
[2017-09-01] MEDS: PRENATAL VITAMINS W/ FOLIC ACID TABLET (FP) PO SCH (10:16)
[2017-09-01] MEDS: NAPROXEN 250 MG TABLET (FP) PO SCH (10:17)
[2017-09-01] MEDS: NICOTINE 14 MG/24 HOURS TOPICAL PATCH TD SCH (10:19)
--- NOTE | 2017-09-01 12:15 | PN ---
BHS Progress Note (SOAP) Subjective: Body Aches, Anxious, Stomach Cramping. Objective: PATIENT A & O X 3, OBSERVED AMBULATING ON UNIT. NO ACUTE DISTRESS. 09/01/17 12:13 Vital Signs Temperature 97.4 F L 09/01/17 10:44 Pulse Rate 66 09/01/17 10:44 Respiratory Rate 18 09/01/17 10:44 Blood Pressure 119/70 09/01/17 10:44 O2 Sat by Pulse Oximetry (%) Laboratory Tests 08/31/17 08/31/17 08/31/17 08:00 08:00 08:00 WBC 5.3 RBC 4.27 Hgb 12.3 Hct 36.9 MCV 86.4 MCH 28.9 MCHC 33.4 RDW 14.8 Plt Count 222 MPV 8.2 Sodium 138 Potassium 4.5 Chloride 104 Carbon Dioxide 29 D Anion Gap 5 L BUN 14 Creatinine 0.7 Creat Clearance w eGFR > 60 Random Glucose 75 D Calcium 8.1 L Total Bilirubin 0.2 AST 28 D ALT 35 D Alkaline Phosphatase 52 Total Protein 5.9 L Albumin 3.1 L HIV 1&2 Antibody Screen Negative HIV P24 Antigen Negative LABS NOTED. RPR RESULT PENDING. 09/01/17 12:14 Assessment: 09/01/17 12:14 WITHDRAWAL SYMPTOMS. Plan: CONTINUE DETOX.
[2017-09-01 17:48] VITALS: BP 145/86; PULSE 67; TEMP 96.7
--- NOTE | 2017-09-01 18:31 | PN ---
[facility] Progress Note Note: Patient requesting to leave AMA. States he needs to get a cigarette. He has been refusing the nicotine patch and nicotine gum. Discussed the benefits of the patch and gum to reduce withdrawal symptoms and he declined both. has been tolerating opiate detox and is stable. Vital Signs (72 hours) 08/29/17 08/30/17 08/30/17 23:53 00:45 03:56 Temperature 97.7 F 97.6 F Pulse Rate 78 74 Respiratory 18 18 18 Rate Blood Pressure 107/63 109/72 08/30/17 08/30/17 08/30/17 06:18 07:02 09:02 Temperature 97.6 F 97.1 F L Pulse Rate 61 69 Respiratory 18 18 16 Rate Blood Pressure 111/61 97/66 08/30/17 08/30/17 08/30/17 13:02 18:04 21:28 Temperature 97.1 F L 97.2 F L 97.6 F Pulse Rate 72 67 72 Respiratory 16 20 18 Rate Blood Pressure 94/63 110/64 132/78 08/31/17 08/31/17 08/31/17 00:30 03:30 06:14 Temperature 97.3 F L Pulse Rate 56 L Respiratory 18 18 18 Rate Blood Pressure 172/97 08/31/17 08/31/17 08/31/17 07:29 09:13 13:56 Temperature 96.8 F L 97.0 F L Pulse Rate 67 71 Respiratory 18 18 Rate Blood Pressure 113/72 146/89 128/79 08/31/17 09/01/17 09/01/17 23:34 00:30 03:30 Temperature 97 F L Pulse Rate 66 Respiratory 18 18 18 Rate Blood Pressure 157/93 09/01/17 09/01/17 09/01/17 06:33 10:44 13:26 Temperature 97.7 F 97.4 F L 96.9 F L Pulse Rate 60 66 69 Respiratory 18 18 20 Rate Blood Pressure 141/72 119/70 144/78 09/01/17 17:47 Temperature 96.7 F L Pulse Rate 67 Respiratory 18 Rate Blood Pressure 145/86 Laboratory Tests 08/31/17 08/31/17 08/31/17 08:00 08:00 08:00 WBC 5.3 RBC 4.27 Hgb 12.3 Hct 36.9 MCV 86.4 MCH 28.9 MCHC 33.4 RDW 14.8 Plt Count 222 MPV 8.2 Sodium 138 Potassium 4.5 Chloride 104 Carbon Dioxide 29 D Anion Gap 5 L BUN 14 Creatinine 0.7 Creat Clearance w eGFR > 60 Random Glucose 75 D Calcium 8.1 L Total Bilirubin 0.2 AST 28 D ALT 35 D Alkaline Phosphatase 52 Total Protein 5.9 L Albumin 3.1 L RPR Titer HIV 1&2 Antibody Screen Negative HIV P24 Antigen Negative 08/31/17 08:00 WBC RBC Hgb Hct MCV MCH MCHC RDW Plt Count MPV Sodium Potassium Chloride Carbon Dioxide Anion Gap BUN Creatinine Creat Clearance w eGFR Random Glucose Calcium Total Bilirubin AST ALT Alkaline Phosphatase Total Protein Albumin RPR Titer Nonreactive HIV 1&2 Antibody Screen HIV P24 Antigen Advised of overdose risks and prevention and loss of tolerance. Encouraged to go to ER or urgent care if has health risk symptoms. Patient left AMA.
--- NOTE | 2017-09-01 18:56 | DS ---
[facility] Detox Discharge Summary Admission Date: 08/29/17 Discharge Date: 09/01/17 - History Present History: Opioid Dependence Additional Comments: Leaving AMA - Physical Exam Results Vital Signs: Vital Signs Temperature 96.7 F L 09/01/17 17:47 Pulse Rate 67 09/01/17 17:47 Respiratory Rate 18 09/01/17 17:47 Blood Pressure 145/86 09/01/17 17:47 O2 Sat by Pulse Oximetry (%) Pertinent Admission Physical Exam Findings: Adm for heroin detox and was tolerating. Hx nicotine use disorder but refused NRT and experiencing nicotine w/drawal. Alert and oriented and in no apparent distress. Laboratory Tests 08/31/17 08/31/17 08/31/17 08:00 08:00 08:00 WBC 5.3 RBC 4.27 Hgb 12.3 Hct 36.9 MCV 86.4 MCH 28.9 MCHC 33.4 RDW 14.8 Plt Count 222 MPV 8.2 Sodium 138 Potassium 4.5 Chloride 104 Carbon Dioxide 29 D Anion Gap 5 L BUN 14 Creatinine 0.7 Creat Clearance w eGFR > 60 Random Glucose 75 D Calcium 8.1 L Total Bilirubin 0.2 AST 28 D ALT 35 D Alkaline Phosphatase 52 Total Protein 5.9 L Albumin 3.1 L RPR Titer HIV 1&2 Antibody Screen Negative HIV P24 Antigen Negative 08/31/17 08:00 WBC RBC Hgb Hct MCV MCH MCHC RDW Plt Count MPV Sodium Potassium Chloride Carbon Dioxide Anion Gap BUN Creatinine Creat Clearance w eGFR Random Glucose Calcium Total Bilirubin AST ALT Alkaline Phosphatase Total Protein Albumin RPR Titer Nonreactive HIV 1&2 Antibody Screen HIV P24 Antigen - Treatment Hospital Course: Detox Protocol Followed, Responded well Patient has Accepted a Rehab Referral to: Refused referrals. - Medication Discharge Medications: Ambulatory Orders NK [No Known Home Medication] 01/26/17 - Diagnosis (1) Nicotine dependence with withdrawal Status: Acute Qualifiers: Nicotine product type: cigarettes Qualified Code(s): F17.213 - Nicotine dependence, cigarettes, with withdrawal (2) Opioid dependence with withdrawal Status: Acute - AMA Did Patient Leave Against Medical Advice: Yes
[2017-09-02] MEDS ORDERED: METHADONE HCL 5 MG TABLET (FOR DETOX USE ONLY) PO ONE (10:00)
[2017-09-03] MEDS ORDERED: METHADONE HCL 10 MG TABLET (FOR DETOX USE ONLY) PO ONE (10:00)
[2017-09-04] MEDS ORDERED: METHADONE HCL 5 MG TABLET (FOR DETOX USE ONLY) PO ONE (06:00)
== END 2017-09-01 06:55 | disposition left against medical advice (07) | DRG 770 ==
LOC: YASAS 23:33 → Y3N 23:57
PROVIDERS: ADMIT Surgery; ATTEND Surgery
PROC: HZ2ZZZZ Detoxification Services for Substance Abuse Treatment (ICD-10-PCS; principal; 2017-08-29)
DX: F11.23 Opioid dependence with withdrawal (principal); F14.20 Cocaine dependence, uncomplicated; F17.213 Nicotine dependence, cigarettes, with withdrawal; F31.9 Bipolar disorder, unspecified; F25.9 Schizoaffective disorder, unspecified; F19.24 Other psychoactive substance dependence with psychoactive substance-induced mood disorder; K21.9 Gastro-esophageal reflux disease without esophagitis; J45.909 Unspecified asthma, uncomplicated; Z91.018 Allergy to other foods
CPT/HCPCS: 36415; 71101-TC-FY; 80053; 85027; 86593; 87389; 93005; 93010

== ENCOUNTER 2017-08-31 14:54 | Emergency (ER) | payer OTHER ==
[2017-08-31 15:17] VITALS: TEMP 97.7; BMI 24.3
[2017-08-31] MEDS ORDERED: SODIUM CHLORIDE 1,000 ML IV STA (15:27)
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
[2017-08-31] MEDS ORDERED: IBUPROFEN 600 MG TABLET (FP) PO ONE ×2 (15:37→16:02)
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
[2017-08-31 16:42] LABS: BASO % 0.7 % (0-2.0); EOS % 6.2 % (0-4.5); HEMATOCRIT 36.1 % (35.4-49); HEMOGLOBIN 11.8 GM/dL (11.7-16.9); LYMPH % 35.6 % (8-40); MCH 28.7 pg (25.7-33.7); MCHC 32.6 g/dl (32.0-35.9); MONO % 10.7 % (3.8-10.2); NEUT % 46.8 % (42.8-82.8); PLATELET COUNT 223 K/MM3 (134-434); RDW 14.9 % (11.9-15.9); WHITE BLOOD COUNT 4.7 K/mm3 (4.0-10.0)
[2017-08-31 17:14] LABS: ALBUMIN 3.3 g/dl (3.4-5.0); ALK PHOS 51 U/L (45-117); ANION GAP 5 (8-16); BLOOD UREA NITROGEN 15 mg/dL (7-18); CALCIUM 8.1 mg/dL (8.5-10.1); CHLORIDE 103 mmol/L (98-107); CO2 30 mmol/L (21-32); CREATININE 0.7 mg/dL (0.7-1.3); GLUCOSE,RANDOM 78 mg/dL (74-106); SGPT/ALT 35 U/L (12-78); SODIUM 138 mmol/L (136-145); TOT PROT 5.9 g/dl (6.4-8.2)
[2017-08-31 17:19] LABS: BILIRUBIN,TOTAL < 0.1 mg/dL (0.2-1.0)
[2017-08-31 17:20] LABS: SGOT/AST 24 U/L (15-37)
[2017-08-31 18:24] LABS: URINE APPEARANCE CLEAR; URINE BILIRUBIN NEGATIVE (<2.0 mg/dL); URINE COLOR STRAW; URINE GLUCOSE (UA) NEGATIVE (NEGATIVE); URINE KETONE NEGATIVE (NEGATIVE); URINE LEUK ESTERASE NEGATIVE (NEGATIVE); URINE NITRITE NEGATIVE (NEGATIVE); URINE PROTEIN NEGATIVE (NEGATIVE); URINE UROBILINOGEN NEGATIVE mg/dL (0.2-1.0)
[2017-08-31 20:34] VITALS: BP 139/94; PULSE 68
== END 2017-08-31 21:57 | disposition home or self-care (01) ==
LOC: JER 14:54
PROC: 3E0337Z Introduction of Electrolytic and Water Balance Substance into Peripheral Vein, Percutaneous Approach (ICD-10-PCS; principal; 2017-08-31)
DX: R52 Pain, unspecified (principal); K21.9 Gastro-esophageal reflux disease without esophagitis; J45.909 Unspecified asthma, uncomplicated; F17.210 Nicotine dependence, cigarettes, uncomplicated
CPT/HCPCS: 36415; 80053; 81003; 85025; 87086; 99282-25; J7030

== ENCOUNTER 2017-11-05 20:28 | Inpatient (IN) | payer OTHER ==
[2017-11-05 20:37] VITALS: BMI 25.5
--- NOTE | 2017-11-05 21:46 | HP ---
COWS - Scale Resting Pulse: 0= [place] 80 or Below Sweatin=Flushed/Facial Moisture Restless Observation: 5= Unable to Sit Still Pupil Size: 0= Normal to Room Light Bone or Joint Aches: 4=Acute Joint/Muscle Pain Runny Nose/ Eye Tearin= Runny Nose/Eyes GI Upset > 30mins: 3= Vomiting/Diarrhea Tremor Observation: 0= None Yawning Observation: 1= 1-2x During Session Anxiety or Irritability: 2=Irritable/Anxious Goose Flesh Skin: 0=Smooth Skin COWS Score: 19 Admission [facility] Chief Complaint: C/O WITHDRAWAL SX'S FROM HEROIN. SEEKING DETOX TXMENT Allergies/Adverse Reactions: Allergies Allergy/AdvReac Type Severity Reaction Status Date / Time chicken derived Allergy Severe Vomiting Verified 11/05/17 21:36 No Known Drug Allergies Allergy Verified 11/05/17 21:36 History of Present Illness: 37 Y.O. MLAE WITH HX/O OPIOID DEPENDENCE HERE FOR DETOX TXMENT. CLIENT IS KNOWN TO THIS PROGRAM LAST HERE ON 09/01/2017. SELF REFERRED.. DENIES ANY SIGNIFICANT PERIOD OF CLEAN TIME. C/O WITHDRAWAL SX'S COWS 18. DENIES C.P., SOB, SEIZURES, DRUG OVERDOSE, AVH, SI.HI. PMHX: ASTHMA, PSYCH: DENIES Exam Limitations: No Limitations - Ebola screening Have you traveled outside of the country in the last 21 days: No Have you had contact with anyone from an Ebola affected area: No Have you been sick,other than usual withdrawal symptoms: No - Review of Systems Constitutional: Chills, Malaise, Night Sweats, Changes in sleep, Unintentional Wgt. Loss EENT: reports: No Symptoms Reported Respiratory: reports: No Symptoms reported Cardiac: reports: No Symptoms Reported GI: reports: Poor Appetite, Poor Fluid Intake, Vomiting, Abdominal cramping ( [place]) : reports: No Symptoms Reported Musculoskeletal: reports: Back Pain, Joint Pain Integumentary: reports: No Symptoms Reported Neuro: reports: No Symptoms reported Endocrine: reports: No Symptoms Reported Hematology: reports: No Symptoms Reported Psychiatric: reports: No Sypmtoms Reported Other Systems: Reviewed and Negative Patient History - Patient Medical History Hx Anemia: No Hx Asthma: Yes Hx Chronic Obstructive Pulmonary Disease (COPD): No Hx Cancer: No Hx Cardiac Disorders: No Hx Congestive Heart Failure: No Hx Hypertension: No Hx Hypercholesterolemia: No Hx Pacemaker: No HX Cerebrovascular Accident: No Hx Seizures: No Hx Dementia: No Hx Diabetes: No Hx Gastrointestinal Disorders: Yes (GERD) Hx Liver Disease: No Hx Genitourinary Disorders: No Hx Sexually Transmitted Disorders: No Hx Renal Disease (ESRD): No Hx Thyroid Disease: No Hx Human Immunodeficiency Virus (HIV): No Hx Hepatitis C: No Hx Depression: No Hx Suicide Attempt: No Hx Bipolar Disorder: No Hx Schizophrenia: Yes Other Medical History: DENIES - Patient Surgical History Past Surgical History: No Hx Neurologic Surgery: No Hx Cataract Extraction: No Hx Cardiac Surgery: No Hx Lung Surgery: No Hx Breast Surgery: No Hx Breast Biopsy: No Hx Abdominal Surgery: No Hx Appendectomy: No Hx Cholecystectomy: No Hx Genitourinary Surgery: No Hx Section: No Hx Orthopedic Surgery: No Anesthesia Reaction: No - PPD History Previous Implant?: Yes Documented Results: Negative w/proof Implanted On Prior [facility] Admission?: Yes Date: 01/28/17 Results: 0 mm PPD to be Administered?: No - Smoking Cessation Smoking history: Current every day smoker Have you smoked in the past 12 months: Yes Aproximately how many cigarettes per day: 4 Cigars Per Day: 0 Hx Chewing Tobacco Use: No Initiated information on smoking cessation: Yes 'Breaking Loose' booklet given: 11/05/17 - Substance & Tx. History Hx Alcohol Use: No Hx Substance Use: Yes Substance Use Type: Cocaine, Heroin, Marijuana, Opiates Hx Substance Use Treatment: Yes ([facility]) - Substances Abused Heroin Route: Inhalation Frequency: Daily Amount used: 7 bags Age of first use: 35 Date of Last Use: 11/05/17 THC Route: Smoking Frequency: Daily Amount used: 2 QUARTER BAGS Age of first use: 14 Date of Last Use: 11/04/17 COCAINE Route: Inhalation Frequency: Daily Amount used: 2 BAGS Age of first use: 18 Date of Last Use: 11/04/17 Family Disease History - Family Disease History Family Disease History: Other: Father (no contact), Mother (no contact), Brother (no contact), Sister (no contact) Admission Physical Exam BHS - Vital Signs Vital Signs: Vital Signs - 24 hr 11/05/17 20:35 Temperature 97.5 F L Pulse Rate 80 Respiratory 22 Rate Blood Pressure 148/79 - Physical General Appearance: Yes: Appropriately Dressed, Moderate Distress, Irritable, Other ([place] FREQ) HEENTM: Yes: EOMI, Normocephalic, Normal Voice, MARCUS, Pharynx Normal Respiratory: Yes: Chest Non-Tender, Lungs Clear, Normal Breath Sounds, No Respiratory Distress, No Accessory Muscle Use Neck: Yes: No masses,lesions,Nodules, Supple, Trachea in good position Breast: Yes: Breast Exam Deferred Cardiology: Yes: Regular Rhythm, Regular Rate, S1, S2 Abdominal: Yes: Normal Bowel Sounds, Non Tender, Flat, Soft Genitourinary: Yes: Other (NO C/O) Back: Yes: Normal Inspection Musculoskeletal: Yes: full range of Motion, Gait Steady Extremities: Yes: Normal Range of Motion, Non-Tender, Tremors Neurological: Yes: public works supervisor II-XII NML intact, Fully Oriented, Alert, Motor Strength 5/5, Depressed Affect Integumentary: Yes: Dry, Warm Lymphatic: Yes: Within Normal Limits - Diagnostic (1) Opioid dependence with withdrawal Current Visit: Yes Status: Acute (2) Substance induced mood disorder Current Visit: Yes Status: Acute (3) Asthma Current Visit: Yes Status: Chronic Qualifiers: Asthma severity: mild Asthma persistence: unspecified Asthma complication type: uncomplicated Qualified Code(s): J45.909 - Unspecified asthma, uncomplicated (4) Bipolar disorder Current Visit: Yes Status: Chronic Qualifiers: Active/Remission status: remission status unspecified Qualified Code(s): F31.9 - Bipolar disorder, unspecified (5) Cannabis dependence Current Visit: Yes Status: Chronic (6) Cocaine dependence Current Visit: Yes Status: Chronic Qualifiers: Substance use status: uncomplicated Qualified Code(s): F14.20 - Cocaine dependence, uncomplicated (7) GERD (gastroesophageal reflux disease) Current Visit: Yes Status: Chronic Qualifiers: Esophagitis presence: without esophagitis Qualified Code(s): K21.9 - Gastro -esophageal reflux disease without esophagitis (8) HTN (hypertension), benign Current Visit: Yes Status: Chronic (9) Nicotine dependence Current Visit: Yes Status: Chronic Qualifiers: Nicotine product type: cigarettes Substance use status: in withdrawal Qualified Code(s): F17.213 - Nicotine dependence, cigarettes, with withdrawal (10) Schizoaffective disorder Current Visit: Yes Status: Chronic Qualifiers: Schizoaffective disorder type: unspecified Qualified Code(s): F25.9 - Schizoaffective disorder, unspecified Comment: As per records.Not recognized by the patient.Non-adherent to medications + OPD treatment. (11) Schizophrenia Current Visit: Yes Status: Suspected Qualifiers: Schizophrenia type: schizophreniform disorder Qualified Code(s): F20.81 - Schizophreniform disorder Cleared for Admission [facility] - Detox or Rehab [facility] Level of Care: Medically Managed Detox Regimen/Protocol: Methadone Claeared for Rehab Admission: No BHS Breath Alcohol Content Breath Alcohol Content: 0 Urine Drug Screen - Results Drug Screen Negative: No Urine Drug Screen Results: THC-Marijuana, CURTIS-Cocaine, OPI-Opiates
[2017-11-05] MEDS ORDERED: LOPERAMIDE HCL 2 MG CAPSULE PO PRN (22:00)
[2017-11-05] MEDS ORDERED: guaiFENesin/D-METHORPHAN HB 10 ML UNIT-DOSE CUPS PO PRN (22:00)
[2017-11-05] MEDS ORDERED: MELATONIN 5 MG TABLETS PO PRN (22:00)
[2017-11-05] MEDS ORDERED: MAGNESIUM HYDROX 2400MG/30ML ORAL SUSPENSION 30 ML CUP PO PRN (22:00)
[2017-11-05] MEDS ORDERED: IBUPROFEN 400 MG TABLET (FP) PO PRN (22:00)
[2017-11-05] MEDS ORDERED: P-EPHED 60MG/TRIPROLIDI 2.5MG TABLET PO PRN (22:00)
[2017-11-05] MEDS ORDERED: NICOTINE POLACRILEX 2 MG GUM BC PRN (22:00)
[2017-11-05] MEDS ORDERED: MAG HYDROX/AL HYDROX/SIMETH 30 ML UNIT-DOSE CUP PO PRN (22:00)
[2017-11-05] MEDS ORDERED: MENTHOL/PHENOL 1 EACH UD MM PRN (22:00)
[2017-11-05] MEDS ORDERED: MAGNESIUM CITRATE 300 ML BOTTLE PO PRN (22:00)
[2017-11-05] MEDS ORDERED: ACETAMINOPHEN 325 MG TABLET (FP) PO PRN (22:00)
[2017-11-05] MEDS ORDERED: METHADONE HCL 10 MG TABLET (FOR DETOX USE ONLY) PO ONE ×2 (22:15→23:00)
[2017-11-05] MEDS: diazePAM 5 MG TABLET PO PRN (22:57)
[2017-11-05] MEDS: THIAMINE HCL 100 MG TABLET (FP) PO SCH (22:57)
[2017-11-06] MEDS ORDERED: METHADONE HCL 10 MG TABLET (FOR DETOX USE ONLY) PO ONE (10:00)
[2017-11-06] MEDS: NICOTINE 14 MG/24 HOURS TOPICAL PATCH TD SCH (10:00)
[2017-11-06] MEDS: diazePAM 5 MG TABLET PO PRN ×2 (10:04→22:59)
[2017-11-06] MEDS: PRENATAL VITAMINS W/ FOLIC ACID TABLET (FP) PO SCH (10:04)
[2017-11-06] MEDS ORDERED: BACLOFEN 10 MG TABLET (FP) PO PRN (10:12)
--- NOTE | 2017-11-06 10:14 | PN ---
BHS COWS - Scale Resting Pulse: 0= [place] 80 or Below Sweatin= Chills/Flushing Restless Observation: 1= Difficult to Sit Still Pupil Size: 1= Pupils >than Normal Bone or Joint Aches: 2= Severe Diffuse Aches Runny Nose/ Eye Tearin= Runny Nose/Eyes GI Upset > 30mins: 2= Nausea/Diarrhea Tremor Observation of Outstretched Hands: 2= Slight Tremor Visible Yawning Observation: 2= >3x During Session Anxiety or Irritability: 2=Irritable/Anxious Goose Flesh Skin: 0=Smooth Skin COWS Score: 15 BHS Progress Note (SOAP) Subjective: reports right lower chest wall cramping 2/10 pain baclofen 10 mg po tid prn pulse 78 regular bp 130.72 denies dizziness denies weakness patient has opiate withdrawal sx of muscle cramping joints pain body aches back pain sweat tremor restlessness trouble sleep at night Objective: 11/06/17 15:38 Vital Signs Temperature 97.9 F 11/06/17 14:04 Pulse Rate 73 11/06/17 14:04 Respiratory Rate 18 11/06/17 14:04 Blood Pressure 128/75 11/06/17 14:04 O2 Sat by Pulse Oximetry (%) Laboratory Last Values WBC 5.6 K/mm3 (4.0-10.0) 11/06/17 07:40 RBC 4.05 M/mm3 (4.00-5.60) 11/06/17 07:40 Hgb 11.6 GM/dL (11.7-16.9) L 11/06/17 07:40 Hct 35.1 % (35.4-49) L 11/06/17 07:40 MCV 86.7 fl (80-96) 11/06/17 07:40 MCH 28.5 pg (25.7-33.7) 11/06/17 07:40 MCHC 32.9 g/dl (32.0-35.9) 11/06/17 07:40 RDW 13.7 % (11.9-15.9) 11/06/17 07:40 Plt Count 206 K/MM3 (134-434) 11/06/17 07:40 MPV 8.2 fl (7.5-11.1) 11/06/17 07:40 Sodium 140 mmol/L (136-145) 11/06/17 07:40 Potassium 4.0 mmol/L (3.5-5.1) 11/06/17 07:40 Chloride 105 mmol/L (98-107) 11/06/17 07:40 Carbon Dioxide 34 mmol/L (21-32) H 11/06/17 07:40 Anion Gap 1 MMOL/L (8-16) L 11/06/17 07:40 BUN 16 mg/dL (7-18) 11/06/17 07:40 Creatinine 0.9 mg/dL (0.7-1.3) 11/06/17 07:40 Creat Clearance w eGFR > 60 (>60) 11/06/17 07:40 Random Glucose 86 mg/dL (74-106) 11/06/17 07:40 Calcium 7.8 mg/dL (8.5-10.1) L 11/06/17 07:40 Total Bilirubin 0.1 mg/dL (0.2-1.0) L 11/06/17 07:40 AST 15 U/L (15-37) D 11/06/17 07:40 ALT 21 U/L (12-78) D 11/06/17 07:40 Alkaline Phosphatase 55 U/L (45-117) 11/06/17 07:40 Total Protein 5.9 g/dl (6.4-8.2) L 11/06/17 07:40 Albumin 3.1 g/dl (3.4-5.0) L 11/06/17 07:40 Urine Color Dk yellow 11/06/17 08:20 Urine Appearance Turbid 11/06/17 08:20 Urine pH 7.0 (5.0-8.0) D 11/06/17 08:20 Ur Specific [place] 1.023 (1.001-1.035) 11/06/17 08:20 Urine Protein Negative (NEGATIVE) 11/06/17 08:20 Urine Glucose (UA) Negative (NEGATIVE) 11/06/17 08:20 Urine Ketones Negative (NEGATIVE) 11/06/17 08:20 Urine Blood Negative (NEGATIVE) 11/06/17 08:20 Urine Nitrite Negative (NEGATIVE) 11/06/17 08:20 Urine Bilirubin Negative (<2.0 mg/dL) 11/06/17 08:20 Urine Urobilinogen Negative mg/dL (0.2-1.0) 11/06/17 08:20 Ur Leukocyte Esterase Negative (NEGATIVE) 11/06/17 08:20 RPR Titer Nonreactive (NONREACTIVE) 11/06/17 07:40 lab noted low calcium Assessment: 11/06/17 15:39 withdrawal sx 11/06/17 15:41 hypocalcemia Plan: continue detox os 500 mg + vitamin D po daily plant manager referral
[2017-11-06 10:53] LABS: HEMATOCRIT 35.1 % (35.4-49); HEMOGLOBIN 11.6 GM/dL (11.7-16.9); MCH 28.5 pg (25.7-33.7); MCHC 32.9 g/dl (32.0-35.9); MEAN CELL VOLUME 86.7 fl (80-96); MEAN PLT VOLUME 8.2 fl (7.5-11.1); PLATELET COUNT 206 K/MM3 (134-434); RBC 4.05 M/mm3 (4.00-5.60); RDW 13.7 % (11.9-15.9); WHITE BLOOD COUNT 5.6 K/mm3 (4.0-10.0)
[2017-11-06 11:09] LABS: ALBUMIN 3.1 g/dl (3.4-5.0); ANION GAP 1 MMOL/L (8-16); BLOOD UREA NITROGEN 16 mg/dL (7-18); CALCIUM 7.8 mg/dL (8.5-10.1); CHLORIDE 105 mmol/L (98-107); CO2 34 mmol/L (21-32); CREATININE 0.9 mg/dL (0.7-1.3); GLUCOSE,RANDOM 86 mg/dL (74-106); SGOT/AST 15 U/L (15-37); SGPT/ALT 21 U/L (12-78); SODIUM 140 mmol/L (136-145)
[2017-11-06 11:10] LABS: ALK PHOS 55 U/L (45-117); BILIRUBIN,TOTAL 0.1 mg/dL (0.2-1.0); TOT PROT 5.9 g/dl (6.4-8.2)
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
[2017-11-06 11:34] LABS: URINE APPEARANCE TURBID; URINE BILIRUBIN NEGATIVE (<2.0 mg/dL); URINE GLUCOSE (UA) NEGATIVE (NEGATIVE); URINE KETONE NEGATIVE (NEGATIVE); URINE LEUK ESTERASE NEGATIVE (NEGATIVE); URINE NITRITE NEGATIVE (NEGATIVE); URINE PROTEIN NEGATIVE (NEGATIVE); URINE UROBILINOGEN NEGATIVE mg/dL (0.2-1.0)
[2017-11-06 11:41] LABS: URINE COLOR DK YELLOW
[2017-11-06] MEDS: CALCIUM 500MG/VIT-D 200 UNITS COMBO TABLET (FP) PO SCH (17:00)
[2017-11-06] MEDS: FERROUS SO4 325 MG TABLET (FP) PO SCH (17:00)
[2017-11-06] MEDS: RANITIDINE HCL 150 MG TABLET (FP) PO SCH (22:59)
[2017-11-06] MEDS: THIAMINE HCL 100 MG TABLET (FP) PO SCH (22:59)
[2017-11-07] MEDS ORDERED: METHADONE HCL 5 MG TABLET (FOR DETOX USE ONLY) PO ONE (10:00)
[2017-11-07] MEDS: CALCIUM 500MG/VIT-D 200 UNITS COMBO TABLET (FP) PO SCH (10:00)
[2017-11-07] MEDS: FERROUS SO4 325 MG TABLET (FP) PO SCH (10:04)
[2017-11-07] MEDS: PRENATAL VITAMINS W/ FOLIC ACID TABLET (FP) PO SCH (10:04)
[2017-11-07] MEDS: RANITIDINE HCL 150 MG TABLET (FP) PO SCH ×2 (10:05→22:22)
[2017-11-07] MEDS: NICOTINE 14 MG/24 HOURS TOPICAL PATCH TD SCH (10:05)
--- NOTE | 2017-11-07 10:09 | PN ---
BHS COWS - Scale Resting Pulse: 0= [place] 80 or Below Sweatin= Chills/Flushing Restless Observation: 1= Difficult to Sit Still Pupil Size: 1= Pupils >than Normal Bone or Joint Aches: 1= Mild Discomfort Runny Nose/ Eye Tearin= Nasal Congestion GI Upset > 30mins: 1= Stomach Cramp Tremor Observation of Outstretched Hands: 2= Slight Tremor Visible Yawning Observation: 2= >3x During Session Anxiety or Irritability: 2=Irritable/Anxious Goose Flesh Skin: 0=Smooth Skin COWS Score: 12 BHS Progress Note (SOAP) Subjective: muscle aches joints pain sweat tremor mild gi distress Objective: 11/07/17 10:07 Vital Signs Temperature 98.1 F 11/07/17 09:18 Pulse Rate 61 11/07/17 09:18 Respiratory Rate 18 11/07/17 09:18 Blood Pressure 135/70 11/07/17 09:18 O2 Sat by Pulse Oximetry (%) Laboratory Last Values WBC 5.6 K/mm3 (4.0-10.0) 11/06/17 07:40 RBC 4.05 M/mm3 (4.00-5.60) 11/06/17 07:40 Hgb 11.6 GM/dL (11.7-16.9) L 11/06/17 07:40 Hct 35.1 % (35.4-49) L 11/06/17 07:40 MCV 86.7 fl (80-96) 11/06/17 07:40 MCH 28.5 pg (25.7-33.7) 11/06/17 07:40 MCHC 32.9 g/dl (32.0-35.9) 11/06/17 07:40 RDW 13.7 % (11.9-15.9) 11/06/17 07:40 Plt Count 206 K/MM3 (134-434) 11/06/17 07:40 MPV 8.2 fl (7.5-11.1) 11/06/17 07:40 Sodium 140 mmol/L (136-145) 11/06/17 07:40 Potassium 4.0 mmol/L (3.5-5.1) 11/06/17 07:40 Chloride 105 mmol/L (98-107) 11/06/17 07:40 Carbon Dioxide 34 mmol/L (21-32) H 11/06/17 07:40 Anion Gap 1 MMOL/L (8-16) L 11/06/17 07:40 BUN 16 mg/dL (7-18) 11/06/17 07:40 Creatinine 0.9 mg/dL (0.7-1.3) 11/06/17 07:40 Creat Clearance w eGFR > 60 (>60) 11/06/17 07:40 Random Glucose 86 mg/dL (74-106) 11/06/17 07:40 Calcium 7.8 mg/dL (8.5-10.1) L 11/06/17 07:40 Total Bilirubin 0.1 mg/dL (0.2-1.0) L 11/06/17 07:40 AST 15 U/L (15-37) D 11/06/17 07:40 ALT 21 U/L (12-78) D 11/06/17 07:40 Alkaline Phosphatase 55 U/L (45-117) 11/06/17 07:40 Total Protein 5.9 g/dl (6.4-8.2) L 11/06/17 07:40 Albumin 3.1 g/dl (3.4-5.0) L 11/06/17 07:40 Urine Color Dk yellow 11/06/17 08:20 Urine Appearance Turbid 11/06/17 08:20 Urine pH 7.0 (5.0-8.0) D 11/06/17 08:20 Ur Specific [place] 1.023 (1.001-1.035) 11/06/17 08:20 Urine Protein Negative (NEGATIVE) 11/06/17 08:20 Urine Glucose (UA) Negative (NEGATIVE) 11/06/17 08:20 Urine Ketones Negative (NEGATIVE) 11/06/17 08:20 Urine Blood Negative (NEGATIVE) 11/06/17 08:20 Urine Nitrite Negative (NEGATIVE) 11/06/17 08:20 Urine Bilirubin Negative (<2.0 mg/dL) 11/06/17 08:20 Urine Urobilinogen Negative mg/dL (0.2-1.0) 11/06/17 08:20 Ur Leukocyte Esterase Negative (NEGATIVE) 11/06/17 08:20 RPR Titer Nonreactive (NONREACTIVE) 11/06/17 07:40 lab noted contineu Ca++ Fe+++ placement Assessment: 11/07/17 10:08 withdrawal sx Plan: continue detox
--- NOTE | 2017-11-07 14:19 | EKG ---
Test Reason : Blood Pressure : / mmHG Vent. Rate : 073 BPM Atrial Rate : 073 BPM P-R Int : 156 ms QRS Dur : 078 ms QT Int : 372 ms P-R-T Axes : 081 075 036 degrees QTc Int : 409 ms NORMAL SINUS RHYTHM NORMAL ECG WHEN COMPARED WITH ECG OF 30-AUG-2017 00:26, NONSPECIFIC T WAVE ABNORMALITY HAS REPLACED INVERTED T WAVES IN INFERIOR LEADS Confirmed by GLADIS REDMAN MD ([id number]) on 11/07/2017 2:18:42 PM Referred By: Confirmed By:GLADIS REDMAN MD
[2017-11-07] MEDS: diazePAM 5 MG TABLET PO PRN (22:22)
[2017-11-07] MEDS: THIAMINE HCL 100 MG TABLET (FP) PO SCH (22:22)
[2017-11-08] MEDS ORDERED: METHADONE HCL 5 MG TABLET (FOR DETOX USE ONLY) PO ONE (10:00)
[2017-11-08] MEDS: FERROUS SO4 325 MG TABLET (FP) PO SCH (10:18)
[2017-11-08] MEDS: RANITIDINE HCL 150 MG TABLET (FP) PO SCH ×2 (10:18→22:23)
[2017-11-08] MEDS: NICOTINE 14 MG/24 HOURS TOPICAL PATCH TD SCH (10:18)
[2017-11-08] MEDS: PRENATAL VITAMINS W/ FOLIC ACID TABLET (FP) PO SCH (10:18)
[2017-11-08] MEDS: CALCIUM 500MG/VIT-D 200 UNITS COMBO TABLET (FP) PO SCH (10:18)
--- NOTE | 2017-11-08 15:14 | PN ---
[facility] Progress Note (SOAP) Subjective: BODY ACHES MUSCLE CRAMPING JOINTS PAIN SWEAT TREMOR RESTLESSNESS Objective: 11/08/17 15:15 Vital Signs Temperature 96.1 F L 11/08/17 13:41 Pulse Rate 82 11/08/17 13:41 Respiratory Rate 18 11/08/17 13:41 Blood Pressure 136/82 11/08/17 13:41 O2 Sat by Pulse Oximetry (%) Laboratory Last Values WBC 5.6 K/mm3 (4.0-10.0) 11/06/17 07:40 RBC 4.05 M/mm3 (4.00-5.60) 11/06/17 07:40 Hgb 11.6 GM/dL (11.7-16.9) L 11/06/17 07:40 Hct 35.1 % (35.4-49) L 11/06/17 07:40 MCV 86.7 fl (80-96) 11/06/17 07:40 MCH 28.5 pg (25.7-33.7) 11/06/17 07:40 MCHC 32.9 g/dl (32.0-35.9) 11/06/17 07:40 RDW 13.7 % (11.9-15.9) 11/06/17 07:40 Plt Count 206 K/MM3 (134-434) 11/06/17 07:40 MPV 8.2 fl (7.5-11.1) 11/06/17 07:40 Sodium 140 mmol/L (136-145) 11/06/17 07:40 Potassium 4.0 mmol/L (3.5-5.1) 11/06/17 07:40 Chloride 105 mmol/L (98-107) 11/06/17 07:40 Carbon Dioxide 34 mmol/L (21-32) H 11/06/17 07:40 Anion Gap 1 MMOL/L (8-16) L 11/06/17 07:40 BUN 16 mg/dL (7-18) 11/06/17 07:40 Creatinine 0.9 mg/dL (0.7-1.3) 11/06/17 07:40 Creat Clearance w eGFR > 60 (>60) 11/06/17 07:40 Random Glucose 86 mg/dL (74-106) 11/06/17 07:40 Calcium 7.8 mg/dL (8.5-10.1) L 11/06/17 07:40 Total Bilirubin 0.1 mg/dL (0.2-1.0) L 11/06/17 07:40 AST 15 U/L (15-37) D 11/06/17 07:40 ALT 21 U/L (12-78) D 11/06/17 07:40 Alkaline Phosphatase 55 U/L (45-117) 11/06/17 07:40 Total Protein 5.9 g/dl (6.4-8.2) L 11/06/17 07:40 Albumin 3.1 g/dl (3.4-5.0) L 11/06/17 07:40 Urine Color Dk yellow 11/06/17 08:20 Urine Appearance Turbid 11/06/17 08:20 Urine pH 7.0 (5.0-8.0) D 11/06/17 08:20 Ur Specific [place] 1.023 (1.001-1.035) 11/06/17 08:20 Urine Protein Negative (NEGATIVE) 11/06/17 08:20 Urine Glucose (UA) Negative (NEGATIVE) 11/06/17 08:20 Urine Ketones Negative (NEGATIVE) 11/06/17 08:20 Urine Blood Negative (NEGATIVE) 11/06/17 08:20 Urine Nitrite Negative (NEGATIVE) 11/06/17 08:20 Urine Bilirubin Negative (<2.0 mg/dL) 11/06/17 08:20 Urine Urobilinogen Negative mg/dL (0.2-1.0) 11/06/17 08:20 Ur Leukocyte Esterase Negative (NEGATIVE) 11/06/17 08:20 RPR Titer Nonreactive (NONREACTIVE) 11/06/17 07:40 LAB NOTED Assessment: 11/08/17 15:17 WITHDRAWAL SX Plan: CONTINUE DETOX
[2017-11-08] MEDS: THIAMINE HCL 100 MG TABLET (FP) PO SCH (22:23)
--- NOTE | 2017-11-09 09:03 | PN ---
[facility] Progress Note (SOAP) Subjective: interrupted sleep, sweats, shakes , left sidfed rib pains(old injury) Objective: 11/09/17 09:00 Vital Signs Temperature 98.1 F 11/09/17 06:14 Pulse Rate 66 11/09/17 06:14 Respiratory Rate 18 11/09/17 06:14 Blood Pressure 152/91 11/09/17 06:14 O2 Sat by Pulse Oximetry (%) Laboratory Tests 11/06/17 11/06/17 11/06/17 07:40 07:40 07:40 WBC 5.6 RBC 4.05 Hgb 11.6 L Hct 35.1 L MCV 86.7 MCH 28.5 MCHC 32.9 RDW 13.7 Plt Count 206 MPV 8.2 Sodium 140 Potassium 4.0 Chloride 105 Carbon Dioxide 34 H Anion Gap 1 L BUN 16 Creatinine 0.9 Creat Clearance w eGFR > 60 Random Glucose 86 Calcium 7.8 L Total Bilirubin 0.1 L AST 15 D ALT 21 D Alkaline Phosphatase 55 Total Protein 5.9 L Albumin 3.1 L Urine Color Urine Appearance Urine pH Ur Specific [place] Urine Protein Urine Glucose (UA) Urine Ketones Urine Blood Urine Nitrite Urine Bilirubin Urine Urobilinogen Ur Leukocyte Esterase RPR Titer Nonreactive 11/06/17 08:20 WBC RBC Hgb Hct MCV MCH MCHC RDW Plt Count MPV Sodium Potassium Chloride Carbon Dioxide Anion Gap BUN Creatinine Creat Clearance w eGFR Random Glucose Calcium Total Bilirubin AST ALT Alkaline Phosphatase Total Protein Albumin Urine Color Dk yellow Urine Appearance Turbid Urine pH 7.0 D Ur Specific [place] 1.023 Urine Protein Negative Urine Glucose (UA) Negative Urine Ketones Negative Urine Blood Negative Urine Nitrite Negative Urine Bilirubin Negative Urine Urobilinogen Negative Ur Leukocyte Esterase Negative RPR Titer pt aox3 ambulating in nad Assessment: 11/09/17 09:01 withdrawal sx's elevated bp left rib pain -old injury 11/09/17 09:01 Plan: cont. detox increase fluids cont. to monitor BP motrin prn d/c in am
[2017-11-09] MEDS ORDERED: amLODIPine BESYLATE 2.5 MG TABLET (FP) PO ONE (09:04)
--- NOTE | 2017-11-09 09:13 | DS ---
[facility] Detox Discharge Summary Admission Date: 11/05/17 - History Present History: Cannabis Dependence, Cocaine Dependence, Opioid Dependence - Physical Exam Results Vital Signs: Vital Signs Temperature 98.1 F 11/09/17 06:14 Pulse Rate 66 11/09/17 06:14 Respiratory Rate 11/09/17 06:14 Blood Pressure 152/91 11/09/17 06:14 O2 Sat by Pulse Oximetry (%) - Treatment Hospital Course: Detox Protocol Followed, Detoxed Safely, Responded well, Discharged Condition Good - Medication Discharge Medications: Ambulatory Orders Ranitidine [Zantac -] 150 mg PO BID #60 tablet 11/09/17 - Diagnosis (1) Opioid dependence with withdrawal Current Visit: Yes Status: Chronic (2) Asthma Current Visit: Yes Status: Chronic Qualifiers: Asthma severity: mild Asthma persistence: unspecified Asthma complication type: uncomplicated Qualified Code(s): J45.909 - Unspecified asthma, uncomplicated (3) Bipolar disorder Current Visit: Yes Status: Chronic Qualifiers: Active/Remission status: remission status unspecified Qualified Code(s): F31.9 - Bipolar disorder, unspecified (4) Cannabis dependence Current Visit: Yes Status: Chronic (5) Cocaine dependence Current Visit: Yes Status: Chronic Qualifiers: Substance use status: uncomplicated Qualified Code(s): F14.20 - Cocaine dependence, uncomplicated (6) GERD (gastroesophageal reflux disease) Current Visit: Yes Status: Chronic Qualifiers: Esophagitis presence: without esophagitis Qualified Code(s): K21.9 - Gastro -esophageal reflux disease without esophagitis (7) HTN (hypertension), benign Current Visit: Yes Status: Chronic (8) Nicotine dependence Current Visit: Yes Status: Chronic Qualifiers: Nicotine product type: cigarettes Substance use status: in withdrawal Qualified Code(s): F17.213 - Nicotine dependence, cigarettes, with withdrawal (9) Schizoaffective disorder Current Visit: Yes Status: Chronic Qualifiers: Schizoaffective disorder type: unspecified Qualified Code(s): F25.9 - Schizoaffective disorder, unspecified - AMA Did Patient Leave Against Medical Advice: No
[2017-11-09] MEDS ORDERED: amLODIPine BESYLATE 2.5 MG TABLET (FP) PO SCH (10:00)
[2017-11-09] MEDS ORDERED: METHADONE HCL 10 MG TABLET (FOR DETOX USE ONLY) PO ONE (10:00)
[2017-11-09] MEDS: FERROUS SO4 325 MG TABLET (FP) PO SCH (10:11)
[2017-11-09] MEDS: PRENATAL VITAMINS W/ FOLIC ACID TABLET (FP) PO SCH (10:11)
[2017-11-09] MEDS: RANITIDINE HCL 150 MG TABLET (FP) PO SCH (10:13)
[2017-11-09] MEDS: NICOTINE 14 MG/24 HOURS TOPICAL PATCH TD SCH (10:15)
[2017-11-09] MEDS: CALCIUM 500MG/VIT-D 200 UNITS COMBO TABLET (FP) PO SCH (10:41)
[2017-11-09 12:00] VITALS: BP 146/87; PULSE 73; TEMP 97.7
--- NOTE | 2017-11-09 15:29 | DS ---
[facility] Detox Discharge Summary Admission Date: 11/05/17 Discharge Date: 11/09/17 - History Present History: Alcohol Dependence - Physical Exam Results Vital Signs: Vital Signs Temperature 97.7 F 11/09/17 12:00 Pulse Rate 73 11/09/17 12:00 Respiratory Rate 11/09/17 12:00 Blood Pressure 146/87 11/09/17 12:00 O2 Sat by Pulse Oximetry (%) - Treatment Hospital Course: Detox Protocol Followed, Detoxed Safely - Medication Discharge Medications: Ambulatory Orders Ranitidine [Zantac -] 150 mg PO BID #60 tablet 11/09/17 - Diagnosis (1) Opioid dependence with withdrawal Status: Chronic (2) Asthma Status: Chronic Qualifiers: Asthma severity: mild Asthma persistence: unspecified Asthma complication type: uncomplicated Qualified Code(s): J45.909 - Unspecified asthma, uncomplicated (3) Bipolar disorder Status: Chronic Qualifiers: Active/Remission status: remission status unspecified Qualified Code(s): F31.9 - Bipolar disorder, unspecified (4) Cannabis dependence Status: Chronic (5) Cocaine dependence Status: Chronic Qualifiers: Substance use status: uncomplicated Qualified Code(s): F14.20 - Cocaine dependence, uncomplicated (6) GERD (gastroesophageal reflux disease) Status: Chronic Qualifiers: Esophagitis presence: without esophagitis Qualified Code(s): K21.9 - Gastro -esophageal reflux disease without esophagitis (7) HTN (hypertension), benign Status: Chronic (8) Nicotine dependence Status: Chronic Qualifiers: Nicotine product type: cigarettes Substance use status: in withdrawal Qualified Code(s): F17.213 - Nicotine dependence, cigarettes, with withdrawal (9) Schizoaffective disorder Status: Chronic Qualifiers: Schizoaffective disorder type: unspecified Qualified Code(s): F25.9 - Schizoaffective disorder, unspecified - AMA Did Patient Leave Against Medical Advice: No (but was administratively d/c'ed because he destroyed hospital property -)
[2017-11-10] MEDS ORDERED: METHADONE HCL 5 MG TABLET (FOR DETOX USE ONLY) PO ONE (06:00)
== END 2017-11-09 11:28 | disposition left against medical advice (07) | DRG 773 ==
LOC: YASAS 20:28 → Y6N 21:42
PROC: HZ2ZZZZ Detoxification Services for Substance Abuse Treatment (ICD-10-PCS; principal; 2017-11-05)
DX: F11.23 Opioid dependence with withdrawal (principal); F10.230 Alcohol dependence with withdrawal, uncomplicated; F14.20 Cocaine dependence, uncomplicated; F12.20 Cannabis dependence, uncomplicated; F17.213 Nicotine dependence, cigarettes, with withdrawal; F25.9 Schizoaffective disorder, unspecified; F31.9 Bipolar disorder, unspecified; I10 Essential (primary) hypertension; K21.9 Gastro-esophageal reflux disease without esophagitis; J45.909 Unspecified asthma, uncomplicated; F19.24 Other psychoactive substance dependence with psychoactive substance-induced mood disorder; M54.5 Low back pain; Z91.19 Patient's noncompliance with other medical treatment and regimen
CPT/HCPCS: 36415; 80053; 81003; 85027; 86593; 93005; 93010; J0475

== ENCOUNTER 2018-01-14 14:13 | Inpatient (IN) | payer OTHER ==
[2018-01-14 14:17] VITALS: BMI 26.9
--- NOTE | 2018-01-14 14:25 | HP ---
COWS - Scale Resting Pulse: 0= [place] 80 or Below Sweatin= No chills or Flushing Restless Observation: 1= Difficult to Sit Still Pupil Size: 0= Normal to Room Light Bone or Joint Aches: 1= Mild Discomfort Runny Nose/ Eye Tearin= Nasal Congestion GI Upset > 30mins: 1= Stomach Cramp Tremor Observation: 2= Slight Tremor Visible Yawning Observation: 1= 1-2x During Session Anxiety or Irritability: 1=Feels Anxious/Irritable Goose Flesh Skin: 0=Smooth Skin COWS Score: 8 CIWA Score Nausea/Vomitin-Mild Nausea/No Vomiting Muscle Tremors: 3 Anxiety: 4-Mod. Anxious/Guarded Agitation: 0-Normal Activity Paroxysmal Sweats: 1-Minimal Palms Moist Orientation: 1-Uncertain about Date Tacttile Disturbances: 0-None Auditory Disturbances: 1-Very Mild Visual Disturbances: 1-Very Mild Sensitivity Headache: 2-Mild CIWA-Ar Total Score: 14 - Admission Criteria [facility] Guidelines: Admission for Medically Managed Detox: Requires at least one of the followin. CIWA greater than 12 2. Seizures within the past 24 hours 3. Delirium tremens within the past 24 hours 4. Hallucinations within the past 24 hours 5. Acute intervention needed for co occurring medical disorder 6. Acute intervention needed for co occurring psychiatric disorder 7. Severe withdrawal that cannot be handled at a lower level of care (continued vomiting, continued diarrhea, abnormal vital signs) requiring intravenous medication and/or fluids 8. Patient presents the following: CIWA greater than 12 Admission Criteria Met: Admission criteria met Admission ROS S - [facility] Chief Complaint: I'm tired, I can't stop, I don't want get sick, do through withdrawals, I don't want to continue to get high - it's giving me legal problems, I'm feeling sick now Allergies/Adverse Reactions: Allergies Allergy/AdvReac Type Severity Reaction Status Date / Time chicken derived Allergy Severe Vomiting Verified 11/05/17 21:36 No Known Drug Allergies Allergy Verified 11/05/17 21:36 History of Present Illness: 37 yo gentleman here for detox from alcohol and heroin, also using cocaine and marijuana. This is one of several admissions. He has had overdose and black outs, denies seizure. Interested in being on a methadone program again. States he has had a DUI and 'other legal problems'. Exam Limitations: Clinical Condition - Ebola screening Have you been sick,other than usual withdrawal symptoms: No - Review of Systems Constitutional: Loss of Appetite, Malaise, Changes in sleep, Weakness EENT: reports: Blurred Vision, Nose Congestion, Dental Problems (needs right tooth extraction) Respiratory: reports: No Symptoms reported Cardiac: reports: Chest Tightness GI: reports: Nausea, Poor Appetite, Abdominal cramping : reports: Burning, Frequency Musculoskeletal: reports: Back Pain, Joint Pain, Muscle Pain Integumentary: reports: No Symptoms Reported Neuro: reports: Headache, Tremors Endocrine: reports: No Symptoms Reported Hematology: reports: No Symptoms Reported Psychiatric: reports: Judgement Intact, Mood/Affect Appropiate, Anxious Other Systems: Reviewed and Negative Patient History - Patient Medical History Hx Anemia: No Hx Asthma: Yes Hx Chronic Obstructive Pulmonary Disease (COPD): No Hx Cancer: No Hx Cardiac Disorders: No Hx Congestive Heart Failure: No Hx Hypertension: No Hx Hypercholesterolemia: No Hx Pacemaker: No HX Cerebrovascular Accident: No Hx Seizures: No Hx Dementia: No Hx Diabetes: No Hx Gastrointestinal Disorders: Yes (GERD) Hx Liver Disease: No Hx Genitourinary Disorders: No Hx Sexually Transmitted Disorders: No Hx Renal Disease (ESRD): No Hx Thyroid Disease: No Hx Human Immunodeficiency Virus (HIV): No Hx Hepatitis C: No Hx Depression: No Hx Suicide Attempt: Yes (hospitalized five years ago; tried to OD on pills) Hx Bipolar Disorder: No Hx Schizophrenia: Yes (hears voices) - Patient Surgical History Past Surgical History: No Hx Neurologic Surgery: No Hx Cataract Extraction: No Hx Cardiac Surgery: No Hx Lung Surgery: No Hx Breast Surgery: No Hx Breast Biopsy: No Hx Abdominal Surgery: No Hx Appendectomy: No Hx Cholecystectomy: No Hx Genitourinary Surgery: No Hx Section: No Hx Orthopedic Surgery: No Anesthesia Reaction: No - PPD History Previous Implant?: Yes Documented Results: Negative w/proof Implanted On Prior [facility] Admission?: Yes Date: 01/28/17 Results: 0 mm PPD to be Administered?: No - Reproductive History Patient is a Female of Child Bearing Age (11 -55 yrs old): No (male) - Smoking Cessation Smoking history: Current every day smoker Have you smoked in the past 12 months: Yes Aproximately how many cigarettes per day: 10 Cigars Per Day: 0 Hx Chewing Tobacco Use: No Initiated information on smoking cessation: Yes 'Breaking Loose' booklet given: 01/14/18 (give on floor) - Substance & Tx. History Hx Alcohol Use: Yes Hx Substance Use: Yes Substance Use Type: Alcohol, Cocaine, Marijuana, Opiates Hx Substance Use Treatment: Yes (detox, reahb, hx methadone program) - Substances Abused heroin Route: Inhalation Frequency: Daily Amount used: 8 bags Age of first use: 33 Date of Last Use: 01/14/18 cocaine Route: Inhalation Frequency: Daily Amount used: $50 Age of first use: 36 Date of Last Use: 01/14/18 marijuana Route: Smoking Frequency: Daily Amount used: 2 bags Age of first use: 12 Date of Last Use: 01/13/18 alcohol Route: Oral Frequency: Daily Amount used: 1 pint [place]; six pack of 16 oz beer Age of first use: 34 Date of Last Use: 01/13/18 Family Disease History - Family Disease History Family Disease History: Other: Father (living, healthy, etoh), Mother (living, schizo), Brother (two - healthy, one uses drugs), Sister (one - healthy), Son ( one age 13 healthy) Admission Physical Exam S - Vital Signs Vital Signs: Vital Signs - 24 hr 01/14/18 14:14 Temperature 96.8 F L Pulse Rate 73 Respiratory 18 Rate Blood Pressure 194/86 H - Physical General Appearance: Yes: Nourished, Appropriately Dressed, Moderate Distress, Anxious HEENTM: Yes: EOMI, Hearing grossly Normal, Normocephalic, Normal Voice, Pharynx Normal, Other (tongue coated) Respiratory: Yes: Normal Breath Sounds, No Respiratory Distress Neck: Yes: No masses,lesions,Nodules, Supple Breast: Yes: Breast Exam Deferred Cardiology: Yes: Regular Rhythm, Regular Rate Abdominal: Yes: Soft Genitourinary: Yes: Frequency Back: Yes: Normal Inspection Musculoskeletal: Yes: full range of Motion, Gait Steady Extremities: Yes: Normal Inspection, Normal Range of Motion, Non-Tender Neurological: Yes: Fully Oriented, Alert, Motor Strength 5/5, Normal Mood/Affect , Normal Response Integumentary: Yes: Normal Color, Warm Lymphatic: Yes: Within Normal Limits - Diagnostic (1) Alcohol dependence with uncomplicated withdrawal Current Visit: Yes Status: Chronic (2) Opioid dependence with withdrawal Current Visit: Yes Status: Chronic (3) Cocaine dependence Current Visit: Yes Status: Chronic Qualifiers: Substance use status: uncomplicated Qualified Code(s): F14.20 - Cocaine dependence, uncomplicated (4) Cannabis dependence Current Visit: Yes Status: Chronic (5) Nicotine dependence Current Visit: Yes Status: Chronic Qualifiers: Nicotine product type: cigarettes Substance use status: uncomplicated Qualified Code(s): F17.210 - Nicotine dependence, cigarettes, uncomplicated Cleared for Admission S - [facility] Level of Care: Medically Managed Detox Regimen/Protocol: [facility]adone/[facility] Breath Alcohol Content Breath Alcohol Content: 0 Urine Drug Screen - Results Drug Screen Negative: No Urine Drug Screen Results: THC-Marijuana, CURTIS-Cocaine, OPI-Opiates, FEN-Fentanyl
[2018-01-14] MEDS ORDERED: MAGNESIUM HYDROX 2400MG/30ML ORAL SUSPENSION 30 ML CUP PO PRN (14:35)
[2018-01-14] MEDS ORDERED: IBUPROFEN 400 MG TABLET (FP) PO PRN (14:35)
[2018-01-14] MEDS ORDERED: guaiFENesin/D-METHORPHAN HB 10 ML UNIT-DOSE CUPS PO PRN (14:35)
[2018-01-14] MEDS ORDERED: MAGNESIUM CITRATE 300 ML BOTTLE PO PRN (14:35)
[2018-01-14] MEDS ORDERED: MENTHOL/PHENOL 1 EACH UD MM PRN (14:35)
[2018-01-14] MEDS ORDERED: P-EPHED 60MG/TRIPROLIDI 2.5MG TABLET PO PRN (14:35)
[2018-01-14] MEDS ORDERED: MAG HYDROX/AL HYDROX/SIMETH 30 ML UNIT-DOSE CUP PO PRN (14:35)
[2018-01-14] MEDS ORDERED: LOPERAMIDE HCL 2 MG CAPSULE PO PRN (14:35)
[2018-01-14] MEDS ORDERED: chlordiazePOXIDE HCL 25 MG CAPSULE PO PRN (14:35)
[2018-01-14] MEDS ORDERED: ACETAMINOPHEN 325 MG TABLET (FP) PO PRN (14:35)
[2018-01-14] MEDS ORDERED: METHADONE HCL 10 MG TABLET (FOR DETOX USE ONLY) PO ONE ×2 (16:30→23:00)
[2018-01-14] MEDS: chlordiazePOXIDE HCL 25 MG CAPSULE PO SCH ×2 (18:39→22:52)
[2018-01-14] MEDS: NICOTINE 21 MG/24 HOURS TOPICAL PATCH TD SCH (18:40)
[2018-01-14] MEDS ORDERED: MELATONIN 5 MG TABLETS PO PRN (22:00)
[2018-01-14] MEDS: RANITIDINE HCL 150 MG TABLET (FP) PO SCH (22:52)
[2018-01-14] MEDS: THIAMINE HCL 100 MG TABLET (FP) PO SCH (22:52)
[2018-01-15 01:49] LABS: URINE APPEARANCE CLEAR; URINE BILIRUBIN NEGATIVE (<2.0 mg/dL); URINE COLOR STRAW; URINE GLUCOSE (UA) NEGATIVE (NEGATIVE); URINE KETONE NEGATIVE (NEGATIVE); URINE LEUK ESTERASE NEGATIVE (NEGATIVE); URINE NITRITE NEGATIVE (NEGATIVE); URINE PROTEIN NEGATIVE (NEGATIVE); URINE UROBILINOGEN NEGATIVE mg/dL (0.2-1.0)
[2018-01-15] MEDS: chlordiazePOXIDE HCL 25 MG CAPSULE PO SCH ×4 (06:00→22:12)
[2018-01-15] MEDS ORDERED: METHADONE HCL 10 MG TABLET (FOR DETOX USE ONLY) PO SCH (10:00)
[2018-01-15] MEDS: PRENATAL VITAMINS W/ FOLIC ACID TABLET (FP) PO SCH (10:10)
[2018-01-15] MEDS: RANITIDINE HCL 150 MG TABLET (FP) PO SCH ×2 (10:11→22:12)
[2018-01-15] MEDS: NICOTINE 21 MG/24 HOURS TOPICAL PATCH TD SCH (10:11)
[2018-01-15 10:58] LABS: ALBUMIN 3.2 g/dl (3.4-5.0); ALK PHOS 62 U/L (45-117); ANION GAP 7 MMOL/L (8-16); BILIRUBIN,TOTAL 0.2 mg/dL (0.2-1); BLOOD UREA NITROGEN 15 mg/dL (7-18); CALCIUM 8.2 mg/dL (8.5-10.1); CHLORIDE 105 mmol/L (98-107); CO2 27 mmol/L (21-32); GLUCOSE,RANDOM 111 mg/dL (74-106); POTASSIUM 4.4 mmol/L (3.5-5.1); SGOT/AST 16 U/L (15-37); SGPT/ALT 24 U/L (13-61); SODIUM 138 mmol/L (136-145); TOT PROT 6.1 g/dl (6.4-8.2)
[2018-01-15 11:02] LABS: HEMATOCRIT 38.1 % (35.4-49); HEMOGLOBIN 12.5 GM/dL (11.7-16.9); MCH 28.7 pg (25.7-33.7); MCHC 32.7 g/dl (32.0-35.9); MEAN CELL VOLUME 87.8 fl (80-96); MEAN PLT VOLUME 8.2 fl (7.5-11.1); PLATELET COUNT 252 K/MM3 (134-434); RBC 4.34 M/mm3 (4.00-5.60); RDW 14.5 % (11.9-15.9); WHITE BLOOD COUNT 7.3 K/mm3 (4.0-10.0)
--- NOTE | 2018-01-15 13:02 | PN ---
S CIWA - CIWA Score Nausea/Vomitin-Mild Nausea/No Vomiting Muscle Tremors: 4-Moderate,w/Arms Extend Anxiety: 4-Mod. Anxious/Guarded Agitation: 3 Paroxysmal Sweats: 3 Orientation: 0-Oriented Tacttile Disturbances: 1-Very Mild Itch/Numbness Auditory Disturbances: 0-None Visual Disturbances: 0-None Headache: 0-None Present CIWA-Ar Total Score: 16 S COWS - Scale Resting Pulse: 0= [place] 80 or Below Sweatin=Flushed/Facial Moisture Restless Observation: 3= Extraneous Movement Pupil Size: 0= Normal to Room Light Bone or Joint Aches: 2= Severe Diffuse Aches Runny Nose/ Eye Tearin= None GI Upset > 30mins: 2= Nausea/Diarrhea Tremor Observation of Outstretched Hands: 2= Slight Tremor Visible Yawning Observation: 0= None Anxiety or Irritability: 2=Irritable/Anxious Goose Flesh Skin: 0=Smooth Skin COWS Score: 13 S Progress Note (SOAP) Subjective: Tremor, chills, sweating, stomach ache Objective: 01/15/18 13:00 Last Vital Signs Temp Pulse Resp BP Pulse Ox 97.8 F 69 16 120/85 01/15/18 09:48 01/15/18 09:48 01/15/18 09:48 01/15/18 09:48 Laboratory Tests 01/14/18 01/15/18 01/15/18 23:31 07:30 07:30 WBC 7.3 RBC 4.34 Hgb 12.5 Hct 38.1 MCV 87.8 MCH 28.7 MCHC 32.7 RDW 14.5 Plt Count 252 D MPV 8.2 Sodium 138 Potassium 4.4 Chloride 105 Carbon Dioxide 27 Anion Gap 7 L BUN 15 Creatinine 1.0 Creat Clearance w eGFR > 60 Random Glucose 111 H Calcium 8.2 L Total Bilirubin 0.2 AST 16 ALT 24 Alkaline Phosphatase 62 Total Protein 6.1 L Albumin 3.2 L Urine Color Straw Urine Appearance Clear Urine pH 8.0 Ur Specific [place] 1.013 Urine Protein Negative Urine Glucose (UA) Negative Urine Ketones Negative Urine Blood Negative Urine Nitrite Negative Urine Bilirubin Negative Urine Urobilinogen Negative Ur Leukocyte Esterase Negative RPR Titer 01/15/18 07:30 WBC RBC Hgb Hct MCV MCH MCHC RDW Plt Count MPV Sodium Potassium Chloride Carbon Dioxide Anion Gap BUN Creatinine Creat Clearance w eGFR Random Glucose Calcium Total Bilirubin AST ALT Alkaline Phosphatase Total Protein Albumin Urine Color Urine Appearance Urine pH Ur Specific [place] Urine Protein Urine Glucose (UA) Urine Ketones Urine Blood Urine Nitrite Urine Bilirubin Urine Urobilinogen Ur Leukocyte Esterase RPR Titer Nonreactive Labs reviewed Assessment: 01/15/18 13:01 Withdrawal sxs Plan: Continue detox Encouraged PO water intake
--- NOTE | 2018-01-15 19:31 | EKG ---
Test Reason : Blood Pressure : / mmHG Vent. Rate : 069 BPM Atrial Rate : 069 BPM P-R Int : 164 ms QRS Dur : 078 ms QT Int : 390 ms P-R-T Axes : 079 075 042 degrees QTc Int : 417 ms NORMAL SINUS RHYTHM NORMAL ECG WHEN COMPARED WITH ECG OF 05-NOV-2017 22:26, NO SIGNIFICANT CHANGE WAS FOUND Confirmed by ASHELY FLORES MD ([id number]) on 01/15/2018 7:31:30 PM Referred By: Mendy Mcbride Confirmed By:ASHELY FLORES MD
[2018-01-15] MEDS: THIAMINE HCL 100 MG TABLET (FP) PO SCH (22:12)
[2018-01-16] MEDS: chlordiazePOXIDE HCL 25 MG CAPSULE PO SCH ×2 (06:46→10:14)
[2018-01-16 09:09] VITALS: BP 125/78; PULSE 83; TEMP 97.1
[2018-01-16] MEDS ORDERED: METHADONE HCL 5 MG TABLET (FOR DETOX USE ONLY) PO SCH (10:00)
[2018-01-16] MEDS: RANITIDINE HCL 150 MG TABLET (FP) PO SCH (10:14)
[2018-01-16] MEDS: PRENATAL VITAMINS W/ FOLIC ACID TABLET (FP) PO SCH (10:14)
[2018-01-16] MEDS: NICOTINE 21 MG/24 HOURS TOPICAL PATCH TD SCH (10:15)
--- NOTE | 2018-01-16 13:57 | PN ---
[facility] Progress Note Note: Patient requested to leave during rounds. Pt was not receptive to completing detox, did not give any reason, only insisting on leaving Denies home meds A & O x 3, not in acute distress Pt will leave AMA
--- NOTE | 2018-01-16 13:58 | DS ---
S Detox Discharge Summary Admission Date: 01/14/18 Discharge Date: 01/16/18 - History Additional Comments: Pt left unit against medical advice - Physical Exam Results Vital Signs: Vital Signs Temperature 97.1 F L 01/16/18 09:08 Pulse Rate 83 01/16/18 09:08 Respiratory Rate 20 01/16/18 09:08 Blood Pressure 125/78 01/16/18 09:08 O2 Sat by Pulse Oximetry (%) - Medication Discharge Medications: Ambulatory Orders Ranitidine [Zantac -] 150 mg PO BID #60 tablet 11/09/17 - AMA Did Patient Leave Against Medical Advice: Yes
[2018-01-16] MEDS ORDERED: chlordiazePOXIDE 5 MG CAPSULE PO SCH (17:00)
[2018-01-17] MEDS ORDERED: chlordiazePOXIDE HCL 10 MG CAPSULE PO SCH (17:00)
[2018-01-18] MEDS ORDERED: METHADONE HCL 10 MG TABLET (FOR DETOX USE ONLY) PO SCH (10:00)
[2018-01-19] MEDS ORDERED: METHADONE HCL 5 MG TABLET (FOR DETOX USE ONLY) PO SCH (06:00)
== END 2018-01-16 11:00 | disposition left against medical advice (07) | DRG 770 ==
LOC: YASAS 14:13 → Y3N 17:11
PROC: HZ2ZZZZ Detoxification Services for Substance Abuse Treatment (ICD-10-PCS; principal; 2018-01-14)
DX: F11.23 Opioid dependence with withdrawal (principal); F10.230 Alcohol dependence with withdrawal, uncomplicated; F14.20 Cocaine dependence, uncomplicated; F12.20 Cannabis dependence, uncomplicated; F17.210 Nicotine dependence, cigarettes, uncomplicated; F19.24 Other psychoactive substance dependence with psychoactive substance-induced mood disorder; F20.9 Schizophrenia, unspecified; I10 Essential (primary) hypertension; J45.909 Unspecified asthma, uncomplicated; K21.9 Gastro-esophageal reflux disease without esophagitis; R56.9 Unspecified convulsions; Z91.5 Personal history of self-harm
CPT/HCPCS: 36415; 80053; 81003; 85027; 86593; 93005; 93010

== ENCOUNTER 2018-05-29 16:23 | Inpatient (IN) | payer OTHER ==
[2018-05-29 20:09] VITALS: BMI 25.1
[2018-05-29] MEDS ORDERED: METHADONE HCL 10 MG TABLET (FOR DETOX USE ONLY) PO ONE (23:00)
--- NOTE | 2018-05-29 23:37 | HP ---
COWS - Scale Resting Pulse: 1= MD 81-100 Sweatin=Flushed/Facial Moisture Restless Observation: 0= Sits Still Pupil Size: 1= Pupils >than Normal Bone or Joint Aches: 4=Acute Joint/Muscle Pain Runny Nose/ Eye Tearin= Runny Nose/Eyes GI Upset > 30mins: 5=Frequent Vomit/Diarrhea (vomiting x 56, diarrhea x2) Tremor Observation: 2= Slight Tremor Visible Yawning Observation: 1= 1-2x During Session Anxiety or Irritability: 2=Irritable/Anxious Goose Flesh Skin: 0=Smooth Skin COWS Score: 20 CIWA Score - Admission Criteria OASAS Guidelines: Admission for Medically Managed Detox: Requires at least one of the followin. CIWA greater than 12 2. Seizures within the past 24 hours 3. Delirium tremens within the past 24 hours 4. Hallucinations within the past 24 hours 5. Acute intervention needed for co occurring medical disorder 6. Acute intervention needed for co occurring psychiatric disorder 7. Severe withdrawal that cannot be handled at a lower level of care (continued vomiting, continued diarrhea, abnormal vital signs) requiring intravenous medication and/or fluids 8. Admission ROS [facility] Chief Complaint: Heroin withdrawal symptoms Allergies/Adverse Reactions: Allergies Allergy/AdvReac Type Severity Reaction Status Date / Time chicken derived Allergy Severe Vomiting Verified 01/14/18 17:03 No Known Drug Allergies Allergy Verified 01/14/18 17:03 History of Present Illness: 38 years old male with about a year of heroin dependence is seeking admission to detox. Patient has been in previous detox, last at [facility] and reports insignificant period of sobriety. He has medical history of asthma, seizures, hypertension and GERD. He reports suicide attempt 15 years ago and denies suicidal ideation at this time Exam Limitations: No Limitations - Ebola screening Have you traveled outside of the country in the last 21 days: No Have you had contact with anyone from an Ebola affected area: No Have you been sick,other than usual withdrawal symptoms: No Do you have a fever: No - Review of Systems Constitutional: Chills, Loss of Appetite, Malaise, Changes in sleep EENT: reports: Sinus Pressure Respiratory: reports: No Symptoms reported Cardiac: reports: No Symptoms Reported GI: reports: Diarrhea, Poor Appetite, Poor Fluid Intake, Vomiting, Abdominal cramping : reports: No Symptoms Reported Musculoskeletal: reports: Back Pain Integumentary: reports: Dryness, Flushing Neuro: reports: Numbness, Tremors Endocrine: reports: No Symptoms Reported Hematology: reports: No Symptoms Reported Psychiatric: reports: Anxious, Depressed Other Systems: Reviewed and Negative Patient History - Patient Medical History Hx Anemia: No Hx Asthma: Yes (Albuterol) Hx Chronic Obstructive Pulmonary Disease (COPD): No Hx Cancer: No Hx Cardiac Disorders: No Hx Congestive Heart Failure: No Hx Hypertension: Yes (Not on medication) Hx Hypercholesterolemia: No Hx Pacemaker: No HX Cerebrovascular Accident: No Hx Seizures: Yes (Not on medication) Hx Dementia: No Hx Diabetes: No Hx Gastrointestinal Disorders: Yes (GERD) Hx Liver Disease: No Hx Genitourinary Disorders: No Hx Sexually Transmitted Disorders: No Hx Renal Disease (ESRD): No Hx Thyroid Disease: No Hx Human Immunodeficiency Virus (HIV): No (Negative q8) Hx Hepatitis C: No Hx Depression: No Hx Suicide Attempt: Yes (hospitalized five years ago; tried to OD on pills) Hx Bipolar Disorder: No Hx Schizophrenia: Yes (hears voices) - Patient Surgical History Past Surgical History: No Hx Neurologic Surgery: No Hx Cataract Extraction: No Hx Cardiac Surgery: No Hx Lung Surgery: No Hx Breast Surgery: No Hx Breast Biopsy: No Hx Abdominal Surgery: No Hx Appendectomy: No Hx Cholecystectomy: No Hx Genitourinary Surgery: No Hx Section: No Hx Orthopedic Surgery: No Anesthesia Reaction: No - PPD History Date: 01/16/18 Results: 0 mm PPD to be Administered?: No - Reproductive History Patient is a Female of Child Bearing Age (11 -55 yrs old): No (male) - Smoking Cessation Smoking history: Current every day smoker Have you smoked in the past 12 months: Yes Aproximately how many cigarettes per day: 10 Cigars Per Day: 0 Hx Chewing Tobacco Use: No Initiated information on smoking cessation: Yes 'Breaking Loose' booklet given: 05/29/18 - Substance & Tx. History Hx Alcohol Use: No Hx Substance Use: Yes Substance Use Type: Heroin, Opiates Hx Substance Use Treatment: Yes ([facility]) - Substances Abused Heroin Route: Inhalation Frequency: Daily Amount used: 10 BAGS Age of first use: 33 Date of Last Use: 05/29/18 Family Disease History - Family Disease History Family Disease History: Other: Father (living, healthy, etoh), Mother (living, schizo), Brother (two - healthy, one uses drugs), Sister (one - healthy), Son ( one age 13 healthy) Admission Physical Exam [facility] - Vital Signs Vital Signs: Vital Signs - 24 hr 05/29/18 20:07 Temperature 97.7 F Pulse Rate 83 Respiratory 18 Rate Blood Pressure 136/81 - Physical General Appearance: Yes: Moderate Distress HEENTM: Yes: EOMI, Normal ENT Inspection, Normal Voice, MARCUS Respiratory: Yes: Lungs Clear, Normal Breath Sounds, No Respiratory Distress Neck: Yes: Supple Breast: Yes: Breast Exam Deferred Cardiology: Yes: Regular Rhythm, Regular Rate Abdominal: Yes: Normal Bowel Sounds, Soft Genitourinary: Yes: Within Normal Limits Back: Yes: Normal Inspection Musculoskeletal: Yes: Back pain Extremities: Yes: Tremors Neurological: Yes: executive assistant to president II-XII NML intact, Alert, Normal Mood/Affect Integumentary: Yes: Warm Lymphatic: Yes: Within Normal Limits - Diagnostic (1) Opioid dependence with withdrawal Current Visit: Yes Status: Chronic (2) Asthma Current Visit: Yes Status: Chronic Qualifiers: Asthma severity: mild Asthma persistence: unspecified Asthma complication type: uncomplicated Qualified Code(s): J45.909 - Unspecified asthma, uncomplicated (3) Cannabis dependence Current Visit: Yes Status: Chronic (4) Cocaine dependence Current Visit: Yes Status: Chronic Qualifiers: Substance use status: uncomplicated Qualified Code(s): F14.20 - Cocaine dependence, uncomplicated (5) GERD (gastroesophageal reflux disease) Current Visit: Yes Status: Chronic Qualifiers: Esophagitis presence: without esophagitis Qualified Code(s): K21.9 - Gastro -esophageal reflux disease without esophagitis (6) HTN (hypertension), benign Current Visit: Yes Status: Chronic (7) Nicotine dependence Current Visit: Yes Status: Chronic Qualifiers: Nicotine product type: cigarettes Substance use status: uncomplicated Qualified Code(s): F17.210 - Nicotine dependence, cigarettes, uncomplicated (8) Seizure Current Visit: Yes Status: Chronic Cleared for Admission [facility] - Detox or Rehab [facility] Level of Care: Medically Managed Detox Regimen/Protocol: Methadone [facility] Breath Alcohol Content Breath Alcohol Content: 0 Urine Drug Screen - Results Drug Screen Negative: No Urine Drug Screen Results: THC-Marijuana, CURTIS-Cocaine, OPI-Opiates, BUP-Suboxone Inpatient Rehab Admission - Rehab Decision to Admit Inpatient rehab admission?: No
[2018-05-29] MEDS ORDERED: ACETAMINOPHEN 325 MG TABLET (FP) PO PRN ×2 (23:52)
[2018-05-29] MEDS ORDERED: MAG HYDROX/AL HYDROX/SIMETH 30 ML UNIT-DOSE CUP PO PRN (23:52)
[2018-05-29] MEDS ORDERED: hydrOXYzine PAMOATE 25 MG CAPSULE (FP) PO PRN (23:52)
[2018-05-29] MEDS ORDERED: MAGNESIUM HYDROX 2400MG/30ML ORAL SUSPENSION 30 ML CUP PO PRN (23:52)
[2018-05-29] MEDS ORDERED: IBUPROFEN 400 MG TABLET (FP) PO PRN (23:52)
[2018-05-29] MEDS ORDERED: MAGNESIUM CITRATE 300 ML BOTTLE PO PRN (23:52)
[2018-05-29] MEDS ORDERED: MENTHOL/PHENOL 1 EACH UD MM PRN (23:52)
[2018-05-29] MEDS ORDERED: cloNIDine HCL 0.1 MG TABLET PO PRN (23:52)
[2018-05-29] MEDS ORDERED: METHOCARBAMOL 500 MG TABLET PO PRN (23:52)
[2018-05-29] MEDS ORDERED: BISMUTH SUBSALICYLATE 524 MG/30 ML UD PO PRN (23:52)
[2018-05-29] MEDS ORDERED: NICOTINE POLACRILEX 2 MG GUM BUC PRN (23:55)
[2018-05-30] MEDS: MELATONIN 5 MG TABLETS PO PRN (01:29)
[2018-05-30] MEDS ORDERED: PNEUMOC 13-VAL CONJ-DIP CRM/PF 0.5 ML DISP.SYRIN IM ONE (01:55)
[2018-05-30] MEDS ORDERED: METHADONE HCL 10 MG TABLET (FOR DETOX USE ONLY) PO ONE (10:00)
[2018-05-30] MEDS: PRENATAL VITAMINS W/ FOLIC ACID TABLET (FP) PO SCH (10:33)
[2018-05-30] MEDS: NICOTINE 14 MG/24 HOURS TOPICAL PATCH TD SCH (10:34)
--- NOTE | 2018-05-30 11:04 | PN ---
[facility] COWS - Scale Resting Pulse: 0= [place] 80 or Below Sweatin= Chills/Flushing Restless Observation: 3= Extraneous Movement Pupil Size: 1= Pupils >than Normal Bone or Joint Aches: 2= Severe Diffuse Aches Runny Nose/ Eye Tearin= Runny Nose/Eyes GI Upset > 30mins: 2= Nausea/Diarrhea Tremor Observation of Outstretched Hands: 2= Slight Tremor Visible Yawning Observation: 1= 1-2x During Session Anxiety or Irritability: 2=Irritable/Anxious Goose Flesh Skin: 0=Smooth Skin COWS Score: 16 [facility] Progress Note (SOAP) Subjective: alert,irritable,anxious,interrupted sleep,pain in the body and back Objective: 05/30/18 11:02 Vital Signs Temperature 97.7 F 05/30/18 09:18 Pulse Rate 73 05/30/18 09:18 Respiratory Rate 18 05/30/18 09:18 Blood Pressure 147/81 05/30/18 09:18 O2 Sat by Pulse Oximetry (%) Vital Signs Temperature 97.7 F 05/30/18 09:18 Pulse Rate 73 05/30/18 09:18 Respiratory Rate 18 05/30/18 09:18 Blood Pressure 147/81 05/30/18 09:18 O2 Sat by Pulse Oximetry (%) labs pending Assessment: 05/30/18 11:04 withdrawal symptom Plan: continue detox
--- NOTE | 2018-05-30 11:31 | CONSULT ---
[facility] Psychiatric Consult - Data Date of interview: 05/30/18 Admission source: Self-referred Identifying data: Mr Banuelos is a 38 years old single Black male, unemployed receiving SSI, homeless seeking detox treatment for opioid Substance Abuse History: Repors history of heroin use. Refer to addiction counselor's summary for further information Medical History: Significant for bronchhial asthma, hypertension, PUD ,low back pain. Smokes 10 cigarettes daily Psychiatric History: Patient is a poor and unreliable historian. Reports that he was diagnosed with schizophrenia while incarcerated at [facility]. Reports one psychiatric hospitalization at [facility] 4 years ago. Denies adherence to psychiatric outpatient treatment. He could not tell leader writer name of medications he has been on in the past. He does not want to take psychotropic. Denies previous suicidal attempt. At present, denies experiencing psychotic, manic or depressive symptoms, S/H ideations Physical/Sexual Abuse/Trauma History: Denies history of emotional, physical or sexual abuse as well as DV relationship. No service Additional Comment: Reports history of multiple previous arrests including 2 felony convictions Mental Status Exam - Mental Status Exam Alert and Oriented to: Time, Place, Person Cognitive Function: Fair Patient Appearance: Well Groomed Mood: Hopeful, Euthymic Affect: Appropriate Patient Behavior: Cooperative Speech Pattern: Clear Voice Loudness: Normal Thought Process: Intact, Goal Oriented Hallucinations: Denies Suicidal Ideation: Denies Homicidal Ideation: Denies Insight/Judgement: Poor Sleep: Well Appetite: Good Muscle strength/Tone: Normal Gait/Station: Normal Psychiatric Findings - Problem List ([place] 1, 2,3) (1) Mood disorder Current Visit: Yes Status: Chronic (2) Bipolar disorder Current Visit: No Status: Ruled-out Qualifiers: Active/Remission status: remission status unspecified Qualified Code(s): F31.9 - Bipolar disorder, unspecified (3) Schizoaffective disorder Current Visit: No Status: Ruled-out Qualifiers: Schizoaffective disorder type: unspecified Qualified Code(s): F25.9 - Schizoaffective disorder, unspecified Comment: As per records.Not recognized by the patient.Non-adherent to medications + OPD treatment. (4) Opioid dependence with withdrawal Current Visit: Yes Status: Acute (5) Nicotine dependence Current Visit: Yes Status: Chronic Qualifiers: Nicotine product type: cigarettes Substance use status: uncomplicated Qualified Code(s): F17.210 - Nicotine dependence, cigarettes, uncomplicated (6) GERD (gastroesophageal reflux disease) Current Visit: Yes Status: Chronic Qualifiers: Esophagitis presence: without esophagitis Qualified Code(s): K21.9 - Gastro -esophageal reflux disease without esophagitis (7) HTN (hypertension), benign Current Visit: Yes Status: Chronic (8) Seizure Current Visit: Yes Status: Chronic (9) Asthma Current Visit: Yes Status: Chronic Qualifiers: Asthma severity: mild Asthma persistence: unspecified Asthma complication type: uncomplicated Qualified Code(s): J45.909 - Unspecified asthma, uncomplicated - Initial Treatment Plan Initial Treatment Plan: Continue inpatient detoxification
[2018-05-30] MEDS ORDERED: PNEUMOCOCCAL 23 VACCINE 0.5 ML VIAL IM ONE (12:00)
[2018-05-30] MEDS ORDERED: FLU VACCINE QUAD 60 MCG/0.5 ML (MDV 18-19) IM ONE (12:00)
[2018-05-30 12:16] LABS: HEMATOCRIT 35.7 % (35.4-49); HEMOGLOBIN 11.9 GM/dL (11.7-16.9); MCH 29.3 pg (25.7-33.7); MCHC 33.4 g/dl (32.0-35.9); MEAN CELL VOLUME 87.6 fl (80-96); MEAN PLT VOLUME 8.5 fl (7.5-11.1); PLATELET COUNT 225 K/MM3 (134-434); RBC 4.08 M/mm3 (4.00-5.60); RDW 14.2 % (11.9-15.9); WHITE BLOOD COUNT 4.8 K/mm3 (4.0-10.0)
[2018-05-30 12:37] LABS: ALBUMIN 3.2 g/dl (3.4-5.0); ALK PHOS 58 U/L (45-117); ANION GAP 5 MMOL/L (8-16); BILIRUBIN,TOTAL 0.2 mg/dL (0.2-1); BLOOD UREA NITROGEN 19 mg/dL (7-18); CALCIUM 8.2 mg/dL (8.5-10.1); CHLORIDE 108 mmol/L (98-107); CO2 28 mmol/L (21-32); CREATININE 0.9 mg/dL (0.55-1.3); GLUCOSE,RANDOM 88 mg/dL (74-106); POTASSIUM 4.5 mmol/L (3.5-5.1); SGOT/AST 13 U/L (15-37); SGPT/ALT 23 U/L (13-61); SODIUM 140 mmol/L (136-145)
[2018-05-30] MEDS: THIAMINE HCL 100 MG TABLET (FP) PO SCH (22:44)
[2018-05-31] MEDS ORDERED: METHADONE HCL 10 MG TABLET (FOR DETOX USE ONLY) PO ONE (10:00)
[2018-05-31] MEDS: NICOTINE 14 MG/24 HOURS TOPICAL PATCH TD SCH (10:39)
[2018-05-31] MEDS: PRENATAL VITAMINS W/ FOLIC ACID TABLET (FP) PO SCH (10:39)
[2018-05-31] MEDS ORDERED: hydrOXYzine PAMOATE 25 MG CAPSULE (FP) PO PRN (14:06)
[2018-05-31] MEDS ORDERED: cloNIDine HCL 0.1 MG TABLET PO PRN (14:06)
--- NOTE | 2018-05-31 14:12 | PN ---
[facility] COWS - Scale Resting Pulse: 0= MD 80 or Below Sweatin= No chills or Flushing Restless Observation: 0= Sits Still Pupil Size: 0= Normal to Room Light Bone or Joint Aches: 0= None Runny Nose/ Eye Tearin= None GI Upset > 30mins: 0= None Tremor Observation of Outstretched Hands: 4= Gross Tremor/Twitching Yawning Observation: 0= None Anxiety or Irritability: 0= None Goose Flesh Skin: 0=Smooth Skin COWS Score: 4 BHS Progress Note (SOAP) Subjective: pt states he is doing "OK" with the heroin detox protocol. Vital Signs - 24 hr 05/30/18 05/30/18 05/31/18 17:15 21:23 07:10 Temperature 98.1 F 97.5 F L 98.1 F Pulse Rate 71 67 62 Respiratory 20 16 118 H Rate Blood Pressure 111/63 127/72 108/68 05/31/18 05/31/18 09:43 13:01 Temperature 99.1 F 98.8 F Pulse Rate 75 79 Respiratory 18 16 Rate Blood Pressure 151/76 138/90 Laboratory Tests 05/30/18 05/30/18 05/30/18 07:30 07:30 07:30 WBC 4.8 RBC 4.08 Hgb 11.9 Hct 35.7 MCV 87.6 MCH 29.3 MCHC 33.4 RDW 14.2 Plt Count 225 MPV 8.5 Sodium 140 Potassium 4.5 Chloride 108 H Carbon Dioxide 28 Anion Gap 5 L BUN 19 H Creatinine 0.9 Creat Clearance w eGFR 94.44 Random Glucose 88 Calcium 8.2 L Total Bilirubin 0.2 AST 13 L ALT 23 Alkaline Phosphatase 58 Total Protein 6.0 L Albumin 3.2 L RPR Titer Nonreactive labs WNL VS WNL a/p: continue heroin detox protocol prn symptomatic meds
[2018-05-31] MEDS: THIAMINE HCL 100 MG TABLET (FP) PO SCH (22:21)
[2018-05-31] MEDS: MELATONIN 5 MG TABLETS PO PRN (22:22)
[2018-06-01] MEDS ORDERED: METHADONE HCL 10 MG TABLET (FOR DETOX USE ONLY) PO ONE (10:00)
--- NOTE | 2018-06-01 10:35 | PN ---
BHS Progress Note (SOAP) Subjective: alert,irritable,anxious,interrupted sleep,pain in the body Objective: 06/01/18 10:34 Vital Signs Temperature 98.1 F 06/01/18 09:22 Pulse Rate 68 06/01/18 09:22 Respiratory Rate 18 06/01/18 09:22 Blood Pressure 123/53 L 06/01/18 09:22 O2 Sat by Pulse Oximetry (%) Assessment: 06/01/18 10:34 withdrawal symptom Plan: continue detox
[2018-06-01] MEDS: PRENATAL VITAMINS W/ FOLIC ACID TABLET (FP) PO SCH (10:45)
[2018-06-01] MEDS: NICOTINE 14 MG/24 HOURS TOPICAL PATCH TD SCH (10:47)
[2018-06-01] MEDS: THIAMINE HCL 100 MG TABLET (FP) PO SCH (23:09)
[2018-06-02] MEDS ORDERED: METHADONE HCL 5 MG TABLET (FOR DETOX USE ONLY) PO ONE (06:00)
--- NOTE | 2018-06-02 08:43 | DS ---
[facility] Detox Discharge Summary Admission Date: 05/30/18 Discharge Date: 06/02/18 - History Present History: Alcohol Dependence, Cannabis Dependence, Cocaine Dependence, Opioid Dependence - Physical Exam Results Vital Signs: Vital Signs Temperature 98.4 F 06/02/18 06:00 Pulse Rate 63 06/02/18 06:00 Respiratory Rate 18 06/02/18 06:00 Blood Pressure 125/73 06/02/18 06:00 O2 Sat by Pulse Oximetry (%) - Treatment Hospital Course: Detox Protocol Followed, Detoxed Safely, Responded well, Discharged Condition Good, Rehab Referral Accepted - Medication Discharge Medications: Ambulatory Orders Ranitidine [Zantac -] 150 mg PO BID #60 tablet 11/09/17 - Diagnosis (1) Opioid dependence with withdrawal Current Visit: Yes Status: Chronic (2) Asthma Current Visit: Yes Status: Chronic Qualifiers: Asthma severity: mild Asthma persistence: unspecified Asthma complication type: uncomplicated Qualified Code(s): J45.909 - Unspecified asthma, uncomplicated (3) Cannabis dependence Current Visit: Yes Status: Chronic (4) Cocaine dependence Current Visit: Yes Status: Chronic Qualifiers: Substance use status: uncomplicated Qualified Code(s): F14.20 - Cocaine dependence, uncomplicated (5) GERD (gastroesophageal reflux disease) Current Visit: Yes Status: Chronic Qualifiers: Esophagitis presence: without esophagitis Qualified Code(s): K21.9 - Gastro -esophageal reflux disease without esophagitis (6) HTN (hypertension), benign Current Visit: Yes Status: Chronic (7) Mood disorder Current Visit: Yes Status: Chronic (8) Nicotine dependence Current Visit: Yes Status: Chronic Qualifiers: Nicotine product type: cigarettes Substance use status: uncomplicated Qualified Code(s): F17.210 - Nicotine dependence, cigarettes, uncomplicated (9) Seizure Current Visit: Yes Status: Chronic (10) Alcohol dependence with uncomplicated withdrawal Current Visit: No Status: Acute (11) Hypocalcemia Current Visit: Yes Status: Chronic (12) Pain Current Visit: No Status: Acute (13) Substance induced mood disorder Current Visit: No Status: Acute (14) Nicotine dependence with withdrawal Current Visit: Yes Status: Chronic Qualifiers: Nicotine product type: cigarettes Qualified Code(s): F17.213 - Nicotine dependence, cigarettes, with withdrawal (15) Schizophrenia Current Visit: No Status: Suspected Qualifiers: Schizophrenia type: schizophreniform disorder Qualified Code(s): F20.81 - Schizophreniform disorder (16) Bipolar disorder Current Visit: No Status: Ruled-out Qualifiers: Active/Remission status: remission status unspecified Qualified Code(s): F31.9 - Bipolar disorder, unspecified (17) Schizoaffective disorder Current Visit: No Status: Ruled-out Qualifiers: Schizoaffective disorder type: unspecified Qualified Code(s): F25.9 - Schizoaffective disorder, unspecified - AMA Did Patient Leave Against Medical Advice: No ([facility])
[2018-06-02 09:46] VITALS: BP 122/58; PULSE 73; TEMP 98.1
== END 2018-06-02 09:40 | disposition home or self-care (01) | DRG 773 ==
LOC: YASAS 16:23 → Y6N 05-30 00:18
PROVIDERS: ADMIT Surgery; ATTEND Surgery
PROC: HZ2ZZZZ Detoxification Services for Substance Abuse Treatment (ICD-10-PCS; principal; 2018-05-30)
DX: F11.23 Opioid dependence with withdrawal (principal); F10.230 Alcohol dependence with withdrawal, uncomplicated; F14.20 Cocaine dependence, uncomplicated; F12.20 Cannabis dependence, uncomplicated; F17.213 Nicotine dependence, cigarettes, with withdrawal; F19.24 Other psychoactive substance dependence with psychoactive substance-induced mood disorder; F20.9 Schizophrenia, unspecified; F39 Unspecified mood [affective] disorder; I10 Essential (primary) hypertension; K21.9 Gastro-esophageal reflux disease without esophagitis; E83.51 Hypocalcemia; R56.9 Unspecified convulsions; J45.909 Unspecified asthma, uncomplicated
CPT/HCPCS: 36415; 80053; 85027; 86593

== ENCOUNTER 2018-09-06 14:20 | Inpatient (IN) | payer OTHER ==
[2018-09-06 15:34] VITALS: BMI 26.2
--- NOTE | 2018-09-06 16:31 | HP ---
COWS - Scale Resting Pulse: 0= [place] 80 or Below Sweatin= Chills/Flushing Restless Observation: 3= Extraneous Movement Pupil Size: 1= Pupils >than Normal Bone or Joint Aches: 1= Mild Discomfort Runny Nose/ Eye Tearin= Nasal Congestion GI Upset > 30mins: 1= Stomach Cramp Tremor Observation: 1= Tremor [place], Not Seen Yawning Observation: 1= 1-2x During Session Anxiety or Irritability: 2=Irritable/Anxious Goose Flesh Skin: 3=Piloerection COWS Score: 15 CIWA Score - Admission Criteria OASAS Guidelines: Admission for Medically Managed Detox: Requires at least one of the followin. CIWA greater than 12 2. Seizures within the past 24 hours 3. Delirium tremens within the past 24 hours 4. Hallucinations within the past 24 hours 5. Acute intervention needed for co occurring medical disorder 6. Acute intervention needed for co occurring psychiatric disorder 7. Severe withdrawal that cannot be handled at a lower level of care (continued vomiting, continued diarrhea, abnormal vital signs) requiring intravenous medication and/or fluids 8. Admission ROS [facility] Chief Complaint: Withdrawal symptoms Allergies/Adverse Reactions: Allergies Allergy/AdvReac Type Severity Reaction Status Date / Time chicken derived Allergy Severe Vomiting Verified 09/06/18 15:27 No Known Drug Allergies Allergy Verified 09/06/18 15:27 History of Present Illness: 38 y.o. man with an extensive history of heroin, cocaine and marijuana dependence is here seeking detox. He last completed in 06/02/18. He does not have a significant period of illicit drug abstinence. Exam Limitations: No Limitations - Ebola screening Have you traveled outside of the country in the last 21 days: No Have you had contact with anyone from an Ebola affected area: No Do you have a fever: No - Review of Systems Constitutional: Chills, Loss of Appetite, Night Sweats, Unintentional Wgt. Loss EENT: reports: Tearing, Nose Congestion Respiratory: reports: Shortness of Breath Cardiac: reports: No Symptoms Reported GI: reports: Nausea, Vomiting, Abdominal cramping : reports: No Symptoms Reported Musculoskeletal: reports: Back Pain Integumentary: reports: No Symptoms Reported Neuro: reports: Numbness Endocrine: reports: No Symptoms Reported Hematology: reports: No Symptoms Reported Psychiatric: reports: Orientated x3 Other Systems: Reviewed and Negative Patient History - Patient Medical History Hx Anemia: No Hx Asthma: Yes (Albuterol) Hx Chronic Obstructive Pulmonary Disease (COPD): No Hx Cancer: No Hx Cardiac Disorders: No Hx Congestive Heart Failure: No Hx Hypertension: Yes (Not on medication) Hx Hypercholesterolemia: No Hx Pacemaker: No HX Cerebrovascular Accident: No Hx Seizures: Yes (Not on medication) Hx Dementia: No Hx Diabetes: No Hx Gastrointestinal Disorders: Yes (GERD) Hx Liver Disease: No Hx Genitourinary Disorders: No Hx Sexually Transmitted Disorders: No Hx Renal Disease (ESRD): No Hx Thyroid Disease: No Hx Human Immunodeficiency Virus (HIV): No (Negative 2018) Hx Hepatitis C: No Hx Depression: No Hx Suicide Attempt: Yes (hospitalized five years ago; tried to OD on pills) Hx Bipolar Disorder: No Hx Schizophrenia: Yes (hears voices) - Patient Surgical History Past Surgical History: No Hx Neurologic Surgery: No Hx Cataract Extraction: No Hx Cardiac Surgery: No Hx Lung Surgery: No Hx Breast Surgery: No Hx Breast Biopsy: No Hx Abdominal Surgery: No Hx Appendectomy: No Hx Cholecystectomy: No Hx Genitourinary Surgery: No Hx Section: No Hx Orthopedic Surgery: No Anesthesia Reaction: No - PPD History Previous Implant?: Yes Documented Results: Negative w/proof Implanted On Prior R Admission?: Yes Date: 01/16/18 Results: 0 mm PPD to be Administered?: No - Reproductive History Patient is a Female of Child Bearing Age (11 -55 yrs old): No - Smoking Cessation Smoking history: Current every day smoker Have you smoked in the past 12 months: Yes Aproximately how many cigarettes per day: 10 Cigars Per Day: 0 Hx Chewing Tobacco Use: No Initiated information on smoking cessation: Yes 'Breaking Loose' booklet given: 09/06/18 - Substance & Tx. History Hx Alcohol Use: No Hx Substance Use: Yes Substance Use Type: Cocaine, Heroin, Marijuana Hx Substance Use Treatment: Yes (Detox: 05/2018) - Substances abused Cocaine Substance route: Inhalation Frequency: 3-6 times per week Amount used: 1 BAG Age of first use: 18 Date of last use: 09/05/18 Marijuana/Hashish Substance route: Smoking Frequency: Daily Amount used: 1 BAG Age of first use: 13 Date of last use: 09/05/18 Heroin Substance route: Inhalation Frequency: Daily Amount used: 5 BAGS Age of first use: 18 Date of last use: 09/06/18 Family Disease History - Family Disease History Family Disease History: Other: Father (living, healthy, etoh), Mother (living, schizo), Brother (two - healthy, one uses drugs), Sister (one - healthy), Son ( one age 13 healthy) Admission Physical Exam [facility] - Vital Signs Vital Signs: Vital Signs - 24 hr 09/06/18 09/06/18 15:19 15:59 Temperature 98.0 F 98.0 F Pulse Rate 73 73 Respiratory 17 17 Rate Blood Pressure 144/101 H 144/101 H - Physical General Appearance: Yes: Tremorous, Anxious HEENTM: Yes: Hearing grossly Normal, Normal ENT Inspection, Normocephalic, Normal Voice Respiratory: Yes: Chest Non-Tender, Lungs Clear, Normal Breath Sounds, No Respiratory Distress, No Accessory Muscle Use Neck: Yes: Within Normal Limits, No masses,lesions,Nodules Breast: Yes: Breast Exam Deferred Cardiology: Yes: Regular Rhythm, Regular Rate Abdominal: Yes: Non Tender, Flat, Soft Genitourinary: Yes: Other (No complaints reported) Back: Yes: Normal Inspection Musculoskeletal: Yes: full range of Motion, Gait Steady Extremities: Yes: Tremors Neurological: Yes: Fully Oriented, Alert, Normal Mood/Affect, Normal Response Integumentary: Yes: Normal Color, Dry, Warm Lymphatic: Yes: Within Normal Limits - Diagnostic (1) Asthma Current Visit: Yes Status: Chronic Qualifiers: Asthma severity: mild Asthma persistence: unspecified Asthma complication type: uncomplicated Qualified Code(s): J45.909 - Unspecified asthma, uncomplicated (2) Cannabis dependence Current Visit: Yes Status: Chronic (3) Cocaine dependence Current Visit: Yes Status: Chronic Qualifiers: Substance use status: uncomplicated Qualified Code(s): F14.20 - Cocaine dependence, uncomplicated (4) GERD (gastroesophageal reflux disease) Current Visit: Yes Status: Chronic Qualifiers: Esophagitis presence: without esophagitis Qualified Code(s): K21.9 - Gastro -esophageal reflux disease without esophagitis (5) HTN (hypertension), benign Current Visit: Yes Status: Chronic (6) Nicotine dependence Current Visit: Yes Status: Chronic Qualifiers: Nicotine product type: cigarettes Substance use status: uncomplicated Qualified Code(s): F17.210 - Nicotine dependence, cigarettes, uncomplicated (7) Opioid dependence with withdrawal Current Visit: Yes Status: Chronic (8) Seizure Current Visit: Yes Status: Chronic Cleared for Admission [facility] - Detox or Rehab [facility] Level of Care: Medically Managed Detox Regimen/Protocol: Methadone Breathalyzer - Breathalyzer Breathalyzer: 0 Urine Drug Screen - Test Device Lot number: [id number] Expiration date: 05/04/20 - Control Is test valid?: Yes - Results Drug screen NEGATIVE: No Urine drug screen results: THC-Marijuana, CURTIS-Cocaine, MET-Methamphetamine, MOP- Opiates Inpatient Rehab Admission - Rehab Decision to Admit Inpatient rehab admission?: No
[2018-09-06] MEDS ORDERED: METHOCARBAMOL 500 MG TABLET PO PRN (16:36)
[2018-09-06] MEDS ORDERED: NICOTINE POLACRILEX 2 MG GUM BUC PRN (16:36)
[2018-09-06] MEDS ORDERED: ONDANSETRON *ODT* 4 MG TABLET SL PRN (16:36)
[2018-09-06] MEDS ORDERED: MENTHOL/PHENOL 1 EACH UD MM PRN (16:36)
[2018-09-06] MEDS ORDERED: NALOXONE HCL 0.4 MG/ML VIAL IVPUSH PRN (16:36)
[2018-09-06] MEDS ORDERED: BISMUTH SUBSALICYLATE 524 MG/30 ML UD PO PRN (16:36)
[2018-09-06] MEDS ORDERED: MELATONIN 5 MG TABLETS PO PRN (16:36)
[2018-09-06] MEDS ORDERED: cloNIDine HCL 0.1 MG TABLET PO PRN (16:36)
[2018-09-06] MEDS ORDERED: hydrOXYzine PAMOATE 25 MG CAPSULE (FP) PO PRN (16:36)
[2018-09-06] MEDS ORDERED: MAG HYDROX/AL HYDROX/SIMETH 30 ML UNIT-DOSE CUP PO PRN (16:36)
[2018-09-06] MEDS ORDERED: MAGNESIUM HYDROX 2400MG/30ML ORAL SUSPENSION 30 ML CUP PO PRN (16:36)
[2018-09-06] MEDS ORDERED: ACETAMINOPHEN 325 MG TABLET (FP) PO PRN ×2 (16:36)
[2018-09-06] MEDS ORDERED: MAGNESIUM CITRATE 300 ML BOTTLE PO PRN (16:36)
[2018-09-06] MEDS ORDERED: ALBUTEROL SO4 8 GM HFA INHALER IH PRN (17:46)
[2018-09-06] MEDS ORDERED: METHADONE HCL 10 MG TABLET (FOR DETOX USE ONLY) PO ONE (18:00)
[2018-09-06] MEDS: IBUPROFEN 400 MG TABLET (FP) PO PRN (19:02)
[2018-09-06] MEDS: THIAMINE HCL 100 MG TABLET (FP) PO SCH (22:17)
[2018-09-06] MEDS: RANITIDINE HCL 150 MG TABLET (FP) PO SCH (22:17)
[2018-09-07] MEDS: BACLOFEN 10 MG TABLET (FP) PO PRN ×2 (02:52→22:20)
[2018-09-07] MEDS: IBUPROFEN 400 MG TABLET (FP) PO PRN ×3 (02:53→22:18)
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
[2018-09-07] MEDS ORDERED: METHADONE HCL 5 MG TABLET (FOR DETOX USE ONLY) ONE (09:06)
[2018-09-07] MEDS ORDERED: METHADONE HCL 10 MG TABLET (FOR DETOX USE ONLY) ONE (09:06)
--- NOTE | 2018-09-07 09:33 | PN ---
BHS COWS - Scale Resting Pulse: 0= [place] 80 or Below Sweatin= Chills/Flushing Restless Observation: 1= Difficult to Sit Still Pupil Size: 1= Pupils >than Normal Bone or Joint Aches: 1= Mild Discomfort Runny Nose/ Eye Tearin= Nasal Congestion GI Upset > 30mins: 1= Stomach Cramp Tremor Observation of Outstretched Hands: 2= Slight Tremor Visible Yawning Observation: 1= 1-2x During Session Anxiety or Irritability: 2=Irritable/Anxious Goose Flesh Skin: 3=Piloerection COWS Score: 14 BHS Progress Note (SOAP) Subjective: body aches, restlessness, irritable Objective: 09/07/18 09:34 Vital Signs Temperature 97.7 F 09/07/18 09:20 Pulse Rate 55 L 09/07/18 09:20 Respiratory Rate 18 09/07/18 09:20 Blood Pressure 119/79 09/07/18 09:20 O2 Sat by Pulse Oximetry (%) 09/07/18 09:35 lab pending Assessment: 09/07/18 09:35 opiate withdrawal sx Plan: continue opiate detox
[2018-09-07] MEDS ORDERED: METHADONE (DETOX) 20 MG, METHADONE (DETOX) 5 MG PO ONE (10:00)
[2018-09-07] MEDS: PRENATAL VITAMINS W/ FOLIC ACID TABLET (FP) PO SCH (10:17)
[2018-09-07] MEDS: RANITIDINE HCL 150 MG TABLET (FP) PO SCH ×2 (10:17→22:20)
[2018-09-07] MEDS: NICOTINE 14 MG/24 HOURS TOPICAL PATCH TD SCH (10:18)
[2018-09-07 13:13] LABS: HEMATOCRIT 34.1 % (35.4-49); HEMOGLOBIN 11.3 GM/dL (11.7-16.9); MCH 28.9 pg (25.7-33.7); MCHC 33.1 g/dl (32.0-35.9); MEAN CELL VOLUME 87.4 fl (80-96); MEAN PLT VOLUME 8.2 fl (7.5-11.1); RDW 14.7 % (11.9-15.9); WHITE BLOOD COUNT 4.6 K/mm3 (4.0-10.0)
[2018-09-07 13:26] LABS: ALBUMIN 3.3 g/dl (3.4-5.0); BILIRUBIN,TOTAL 0.4 mg/dL (0.2-1); CALCIUM 8.1 mg/dL (8.5-10.1); CREATININE 0.8 mg/dL (0.55-1.3); POTASSIUM 4.4 mmol/L (3.5-5.1); TOT PROT 5.8 g/dl (6.4-8.2)
[2018-09-07 13:42] LABS: PLATELET COUNT 231 K/MM3 (134-434)
[2018-09-07] MEDS: clonazePAM 0.5 MG TABLET PO PRN ×2 (13:52→22:20)
[2018-09-07] MEDS: THIAMINE HCL 100 MG TABLET (FP) PO SCH (22:20)
[2018-09-07] MEDS: QUEtiapine FUMARATE 100 MG TABLET (FP) PO SCH (22:20)
[2018-09-08] MEDS ORDERED: METHADONE HCL 10 MG TABLET (FOR DETOX USE ONLY) PO ONE (10:00)
[2018-09-08] MEDS: RANITIDINE HCL 150 MG TABLET (FP) PO SCH ×2 (10:13→22:24)
[2018-09-08] MEDS: NICOTINE 14 MG/24 HOURS TOPICAL PATCH TD SCH (10:13)
[2018-09-08] MEDS: PRENATAL VITAMINS W/ FOLIC ACID TABLET (FP) PO SCH (10:13)
--- NOTE | 2018-09-08 14:11 | PN ---
BHS COWS - Scale Resting Pulse: 0= [place] 80 or Below Sweatin= Chills/Flushing Restless Observation: 1= Difficult to Sit Still Pupil Size: 0= Normal to Room Light Bone or Joint Aches: 0= None Runny Nose/ Eye Tearin= None GI Upset > 30mins: 1= Stomach Cramp Tremor Observation of Outstretched Hands: 0= None Yawning Observation: 1= 1-2x During Session Anxiety or Irritability: 2=Irritable/Anxious Goose Flesh Skin: 3=Piloerection COWS Score: 9 BHS Progress Note (SOAP) Subjective: Stomach Cramping, Anxious, Fatigue. Objective: PATIENT A & O X 3. IN NO ACUTE DISTRESS. 09/08/18 14:08 Vital Signs Temperature 98.0 F 09/08/18 13:38 Pulse Rate 63 09/08/18 13:38 Respiratory Rate 18 09/08/18 13:38 Blood Pressure 132/77 09/08/18 13:38 O2 Sat by Pulse Oximetry (%) Laboratory Tests 09/07/18 09/07/18 09/07/18 08:00 08:00 08:00 WBC 4.6 RBC 3.90 L Hgb 11.3 L Hct 34.1 L MCV 87.4 MCH 28.9 MCHC 33.1 RDW 14.7 Plt Count 231 MPV 8.2 Sodium 139 Potassium 4.4 Chloride 106 Carbon Dioxide 31 Anion Gap 3 L BUN 22.0 H Creatinine 0.8 Est GFR (CKD-EPI)AfAm 131.34 Est GFR (CKD-EPI)NonAf 113.32 Random Glucose 77 Calcium 8.1 L Total Bilirubin 0.4 AST 11 L ALT 18 Alkaline Phosphatase 59 Total Protein 5.8 L Albumin 3.3 L RPR Titer Nonreactive LABS NOTED. Assessment: 09/08/18 14:07 WITHDRAWAL SYMPTOMS. ANEMIA. 09/08/18 14:11 Plan: CONTINUE DETOX. PATIENT IS CURRENTLY RECEIVING DAILY MVI CONTAINING B VITAMINS AND IRON WHILE ADMITTED FOR DETOX.
[2018-09-08] MEDS: THIAMINE HCL 100 MG TABLET (FP) PO SCH (22:24)
[2018-09-08] MEDS: QUEtiapine FUMARATE 100 MG TABLET (FP) PO SCH (22:24)
[2018-09-08] MEDS: BACLOFEN 10 MG TABLET (FP) PO PRN (22:24)
[2018-09-08] MEDS: clonazePAM 0.5 MG TABLET PO PRN (22:25)
[2018-09-09] MEDS ORDERED: METHADONE HCL 10 MG TABLET (FOR DETOX USE ONLY) ONE (09:00)
[2018-09-09] MEDS ORDERED: METHADONE HCL 5 MG TABLET (FOR DETOX USE ONLY) ONE (09:00)
[2018-09-09] MEDS ORDERED: METHADONE (DETOX) 10 MG, METHADONE (DETOX) 5 MG PO ONE (10:00)
[2018-09-09] MEDS: PRENATAL VITAMINS W/ FOLIC ACID TABLET (FP) PO SCH (10:30)
[2018-09-09] MEDS: RANITIDINE HCL 150 MG TABLET (FP) PO SCH ×2 (10:30→22:25)
[2018-09-09] MEDS: NICOTINE 14 MG/24 HOURS TOPICAL PATCH TD SCH (10:31)
--- NOTE | 2018-09-09 11:34 | PN ---
BHS COWS - Scale Resting Pulse: 0= [place] 80 or Below Sweatin= Chills/Flushing Restless Observation: 0= Sits Still Pupil Size: 0= Normal to Room Light Bone or Joint Aches: 0= None Runny Nose/ Eye Tearin= Nasal Congestion GI Upset > 30mins: 1= Stomach Cramp Tremor Observation of Outstretched Hands: 0= None Yawning Observation: 1= 1-2x During Session Anxiety or Irritability: 2=Irritable/Anxious Goose Flesh Skin: 0=Smooth Skin COWS Score: 6 BHS Progress Note (SOAP) Subjective: Stomach Cramping (Mild), Anxious, Fatigue. Objective: PATIENT A & O X 3, OBSERVED AMBULATING ON UNIT UNASSISTED. IN NO ACUTE DISTRESS. 09/09/18 11:35 Vital Signs Temperature 96.4 F L 09/09/18 09:21 Pulse Rate 68 09/09/18 09:21 Respiratory Rate 18 09/09/18 09:21 Blood Pressure 120/80 09/09/18 09:21 O2 Sat by Pulse Oximetry (%) Laboratory Tests 09/07/18 09/07/18 09/07/18 08:00 08:00 08:00 WBC 4.6 RBC 3.90 L Hgb 11.3 L Hct 34.1 L MCV 87.4 MCH 28.9 MCHC 33.1 RDW 14.7 Plt Count 231 MPV 8.2 Sodium 139 Potassium 4.4 Chloride 106 Carbon Dioxide 31 Anion Gap 3 L BUN 22.0 H Creatinine 0.8 Est GFR (CKD-EPI)AfAm 131.34 Est GFR (CKD-EPI)NonAf 113.32 Random Glucose 77 Calcium 8.1 L Total Bilirubin 0.4 AST 11 L ALT 18 Alkaline Phosphatase 59 Total Protein 5.8 L Albumin 3.3 L RPR Titer Nonreactive LABS NOTED. Assessment: 09/09/18 11:35 WITHDRAWAL SYMPTOMS. ANEMIA. 09/09/18 11:36 Plan: CONTINUE DETOX. INCREASE DAILY PO WATER INTAKE.
[2018-09-09] MEDS: THIAMINE HCL 100 MG TABLET (FP) PO SCH (22:25)
[2018-09-09] MEDS: QUEtiapine FUMARATE 100 MG TABLET (FP) PO SCH (22:25)
[2018-09-10] MEDS ORDERED: METHADONE HCL 10 MG TABLET (FOR DETOX USE ONLY) PO ONE (10:00)
[2018-09-10] MEDS: PRENATAL VITAMINS W/ FOLIC ACID TABLET (FP) PO SCH (10:03)
[2018-09-10] MEDS: NICOTINE 14 MG/24 HOURS TOPICAL PATCH TD SCH (10:03)
[2018-09-10] MEDS: RANITIDINE HCL 150 MG TABLET (FP) PO SCH ×2 (10:03→22:10)
--- NOTE | 2018-09-10 12:03 | PN ---
BHS COWS - Scale Resting Pulse: 0= [place] 80 or Below Sweatin= No chills or Flushing Restless Observation: 0= Sits Still Pupil Size: 0= Normal to Room Light Bone or Joint Aches: 1= Mild Discomfort Runny Nose/ Eye Tearin= None GI Upset > 30mins: 0= None Tremor Observation of Outstretched Hands: 1= Tremor [place], Not Seen Yawning Observation: 0= None Anxiety or Irritability: 1=Feels Anxious/Irritable Goose Flesh Skin: 0=Smooth Skin COWS Score: 3 S Progress Note (SOAP) Subjective: feeling better today discuss aftercare at [facility] discuss medication assisted treatment program Objective: 09/10/18 12:04 Vital Signs Temperature 97.3 F L 09/10/18 09:15 Pulse Rate 68 09/10/18 09:15 Respiratory Rate 18 09/10/18 09:15 Blood Pressure 118/61 09/10/18 09:15 O2 Sat by Pulse Oximetry (%) Laboratory Last Values WBC 4.6 K/mm3 (4.0-10.0) 09/07/18 08:00 RBC 3.90 M/mm3 (4.00-5.60) L 09/07/18 08:00 Hgb 11.3 GM/dL (11.7-16.9) L 09/07/18 08:00 Hct 34.1 % (35.4-49) L 09/07/18 08:00 MCV 87.4 fl (80-96) 09/07/18 08:00 MCH 28.9 pg (25.7-33.7) 09/07/18 08:00 MCHC 33.1 g/dl (32.0-35.9) 09/07/18 08:00 RDW 14.7 % (11.9-15.9) 09/07/18 08:00 Plt Count 231 K/MM3 (134-434) 09/07/18 08:00 MPV 8.2 fl (7.5-11.1) 09/07/18 08:00 Sodium 139 mmol/L (136-145) 09/07/18 08:00 Potassium 4.4 mmol/L (3.5-5.1) 09/07/18 08:00 Chloride 106 mmol/L (98-107) 09/07/18 08:00 Carbon Dioxide 31 mmol/L (21-32) 09/07/18 08:00 Anion Gap 3 MMOL/L (8-16) L 09/07/18 08:00 BUN 22.0 mg/dL (7-18) H 09/07/18 08:00 Creatinine 0.8 mg/dL (0.55-1.3) 09/07/18 08:00 Est GFR (CKD-EPI)AfAm 131.34 09/07/18 08:00 Est GFR (CKD-EPI)NonAf 113.32 09/07/18 08:00 Random Glucose 77 mg/dL (74-106) 09/07/18 08:00 Calcium 8.1 mg/dL (8.5-10.1) L 09/07/18 08:00 Total Bilirubin 0.4 mg/dL (0.2-1) 09/07/18 08:00 AST 11 U/L (15-37) L 09/07/18 08:00 ALT 18 U/L (13-61) 09/07/18 08:00 Alkaline Phosphatase 59 U/L (45-117) 09/07/18 08:00 Total Protein 5.8 g/dl (6.4-8.2) L 09/07/18 08:00 Albumin 3.3 g/dl (3.4-5.0) L 09/07/18 08:00 RPR Titer Nonreactive (NONREACTIVE) 09/07/18 08:00 lab noted Assessment: 09/10/18 12:05 opiate withdrawal sx Plan: continue opiate detox
[2018-09-10] MEDS: BACLOFEN 10 MG TABLET (FP) PO PRN (22:10)
[2018-09-10] MEDS: QUEtiapine FUMARATE 100 MG TABLET (FP) PO SCH (22:10)
[2018-09-10] MEDS: THIAMINE HCL 100 MG TABLET (FP) PO SCH (22:10)
[2018-09-11] MEDS ORDERED: METHADONE HCL 5 MG TABLET (FOR DETOX USE ONLY) PO ONE (06:00)
[2018-09-11 09:02] VITALS: BP 143/90; PULSE 87; TEMP 97.5
--- NOTE | 2018-09-11 13:03 | DS ---
[facility] Detox Discharge Summary Admission Date: 09/06/18 Discharge Date: 09/11/18 - History Present History: Opioid Dependence Additional Comments: 38 years old male admitted on 09/06/18 for opiate withdrawal stabilization completed opiate detox regimen aftercare [facility] Pertinent Past History: bring in medication list and lab report to aftercare appointment - Physical Exam Results Vital Signs: Vital Signs Temperature 97.5 F L 09/11/18 09:01 Pulse Rate 87 09/11/18 09:01 Respiratory Rate 18 09/11/18 09:01 Blood Pressure 143/90 09/11/18 09:01 O2 Sat by Pulse Oximetry (%) Pertinent Admission Physical Exam Findings: Laboratory Last Values WBC 4.6 K/mm3 (4.0-10.0) 09/07/18 08:00 RBC 3.90 M/mm3 (4.00-5.60) L 09/07/18 08:00 Hgb 11.3 GM/dL (11.7-16.9) L 09/07/18 08:00 Hct 34.1 % (35.4-49) L 09/07/18 08:00 MCV 87.4 fl (80-96) 09/07/18 08:00 MCH 28.9 pg (25.7-33.7) 09/07/18 08:00 MCHC 33.1 g/dl (32.0-35.9) 09/07/18 08:00 RDW 14.7 % (11.9-15.9) 09/07/18 08:00 Plt Count 231 K/MM3 (134-434) 09/07/18 08:00 MPV 8.2 fl (7.5-11.1) 09/07/18 08:00 Sodium 139 mmol/L (136-145) 09/07/18 08:00 Potassium 4.4 mmol/L (3.5-5.1) 09/07/18 08:00 Chloride 106 mmol/L (98-107) 09/07/18 08:00 Carbon Dioxide 31 mmol/L (21-32) 09/07/18 08:00 Anion Gap 3 MMOL/L (8-16) L 09/07/18 08:00 BUN 22.0 mg/dL (7-18) H 09/07/18 08:00 Creatinine 0.8 mg/dL (0.55-1.3) 09/07/18 08:00 Est GFR (CKD-EPI)AfAm 131.34 09/07/18 08:00 Est GFR (CKD-EPI)NonAf 113.32 09/07/18 08:00 Random Glucose 77 mg/dL (74-106) 09/07/18 08:00 Calcium 8.1 mg/dL (8.5-10.1) L 09/07/18 08:00 Total Bilirubin 0.4 mg/dL (0.2-1) 09/07/18 08:00 AST 11 U/L (15-37) L 09/07/18 08:00 ALT 18 U/L (13-61) 09/07/18 08:00 Alkaline Phosphatase 59 U/L (45-117) 09/07/18 08:00 Total Protein 5.8 g/dl (6.4-8.2) L 09/07/18 08:00 Albumin 3.3 g/dl (3.4-5.0) L 09/07/18 08:00 RPR Titer Nonreactive (NONREACTIVE) 09/07/18 08:00 lab noted - Treatment Hospital Course: Detox Protocol Followed, Detoxed Safely, Responded well, Discharged Condition Good, Rehab Referral Accepted Patient has Accepted a Rehab Referral to: [facility] - Medication Discharge Medications: Ambulatory Orders Ranitidine [Zantac -] 150 mg PO BID #60 tablet 11/09/17 - Diagnosis (1) Opioid dependence with withdrawal Status: Acute (2) Substance induced mood disorder Status: Suspected (3) Asthma Status: Chronic Qualifiers: Asthma severity: mild Asthma persistence: unspecified Asthma complication type: uncomplicated Qualified Code(s): J45.909 - Unspecified asthma, uncomplicated (4) GERD (gastroesophageal reflux disease) Status: Chronic Qualifiers: Esophagitis presence: without esophagitis Qualified Code(s): K21.9 - Gastro -esophageal reflux disease without esophagitis (5) HTN (hypertension), benign Status: Chronic (6) Nicotine dependence Status: Acute Qualifiers: Nicotine product type: cigarettes Substance use status: in withdrawal Qualified Code(s): F17.213 - Nicotine dependence, cigarettes, with withdrawal - AMA Did Patient Leave Against Medical Advice: No
== END 2018-09-11 09:07 | disposition home or self-care (01) | DRG 773 ==
LOC: YASAS 14:20 → Y3N 16:56
PROVIDERS: ADMIT Surgery; ATTEND Surgery
PROC: HZ2ZZZZ Detoxification Services for Substance Abuse Treatment (ICD-10-PCS; principal; 2018-09-06)
DX: F11.23 Opioid dependence with withdrawal (principal); F14.20 Cocaine dependence, uncomplicated; F12.20 Cannabis dependence, uncomplicated; F17.213 Nicotine dependence, cigarettes, with withdrawal; F19.282 Other psychoactive substance dependence with psychoactive substance-induced sleep disorder; F19.24 Other psychoactive substance dependence with psychoactive substance-induced mood disorder; F25.9 Schizoaffective disorder, unspecified; F39 Unspecified mood [affective] disorder; D64.9 Anemia, unspecified; I10 Essential (primary) hypertension; J45.909 Unspecified asthma, uncomplicated; K21.9 Gastro-esophageal reflux disease without esophagitis; R56.9 Unspecified convulsions; Z91.5 Personal history of self-harm
CPT/HCPCS: 36415; 80053; 85027; 86593; J0475

== ENCOUNTER 2019-03-30 15:01 | Inpatient (IN) | payer OTHER ==
[2019-03-30 15:40] VITALS: BMI 32.3
--- NOTE | 2019-03-30 18:25 | HP ---
COWS - Scale Resting Pulse: 0= [place] 80 or Below Sweatin=Flushed/Facial Moisture Restless Observation: 3= Extraneous Movement Pupil Size: 2= Moderately Dilated (PUPILS = 4 MM) Bone or Joint Aches: 1= Mild Discomfort (r/t withdrawal) Runny Nose/ Eye Tearin= Nasal Congestion GI Upset > 30mins: 0= None Tremor Observation: 2= Slight Tremor Visible Yawning Observation: 0= None Anxiety or Irritability: 1=Feels Anxious/Irritable Goose Flesh Skin: 0=Smooth Skin COWS Score: 12 CIWA Score Nausea/Vomitin-No Nausea/No Vomiting Muscle Tremors: 3 Anxiety: 3 Agitation: 4-Moderately Restless Paroxysmal Sweats: 3 (INCREASED FACIAL MOISTURE) Orientation: 0-Oriented Tacttile Disturbances: 0-None Auditory Disturbances: 0-None Visual Disturbances: 0-None Headache: 0-None Present CIWA-Ar Total Score: 13 - Admission Criteria [facility]ASAS Guidelines: Admission for Medically Managed Detox: Requires at least one of the followin. CIWA greater than 12 2. Seizures within the past 24 hours 3. Delirium tremens within the past 24 hours 4. Hallucinations within the past 24 hours 5. Acute intervention needed for co occurring medical disorder 6. Acute intervention needed for co occurring psychiatric disorder 7. Severe withdrawal that cannot be handled at a lower level of care (continued vomiting, continued diarrhea, abnormal vital signs) requiring intravenous medication and/or fluids 8. Patient presents the following: CIWA greater than 12 Admission Criteria Met: Admission criteria met Admitting History and Physical - Smoking History Smoking history: Current every day smoker Have you smoked in the past 12 months: Yes Aproximately how many cigarettes per day: 10 - Alcohol/Substance Use Hx Alcohol Use: No Admission ROS [facility] - [facility] Chief Complaint: "Here to get sober and courts mandated me here" Allergies/Adverse Reactions: Allergies Allergy/AdvReac Type Severity Reaction Status Date / Time chicken derived Allergy Severe Vomiting Verified 03/30/19 15:33 No Known Drug Allergies Allergy Verified 03/30/19 15:33 History of Present Illness: 38 yo presents w/ alcohol and opioid use disorder w/ withdrawal symptoms. Referred by legal system for detox and rehab. Last Care visit 09/2019. Incarcerated from September to Feb 23, 2020. Relapsed once released. Has been trying to cut down. Overdose 3-4 times. Last OD June or July 2019. Once seizure r/t 1 yr ago. Alcohol use since age 22. Current use is 1 pint about 3-4x/wk Heroin use since age 34. Current use 3-4 bags - nasally daily. States used 10 bags yesterday. No Narcan kit at home. Cocaine use since age 34. Currently using 1-2 x/wk Marijuana use since age 21. Currently smokes 3-4x/wk Nicotine use since age 18. Smokes 1/2 PPD. PMHx: Asthma (SOB r/t heat); HTN (not on meds) MHHx: Schizophrenia (last took meds 2 weeks ago). Denies thoughts of harming self or others. Last saw MH Provider 2 weeks ago) SHx: Domiciled. Unemployed. (+) Legal issues - sent here for sobriety. Search Terms: [place] Banuelos, 1980 Search Date: 03/30/2019 06:21:30 PM The Drug Utilization Report below displays all of the controlled substance prescriptions, if any, that your patient has filled in the last twelve months. The information displayed on this report is compiled from pharmacy submissions to the Department, and accurately reflects the information as submitted by the pharmacies. This report was requested by: Stefanie Luna | Reference #: [id number] There are no results for the search terms that you entered. Exam Limitations: No Limitations - Ebola screening Have you traveled outside of the country in the last 21 days: No Have you had contact with anyone from an Ebola affected area: No Have you been sick,other than usual withdrawal symptoms: No Do you have a fever: No - Review of Systems Constitutional: Chills, Changes in sleep (Difficulty staying asleep) EENT: reports: Blurred Vision, Nose Congestion Respiratory: reports: No Symptoms reported Cardiac: reports: No Symptoms Reported GI: reports: Indigestion (Acid reflux - controlled by diet) : reports: Frequency (r/t drug use) Musculoskeletal: reports: Other (Muscle cramping (L) leg x 1 week) Integumentary: reports: Lesions (small scabs both shins) Neuro: reports: Tremors Endocrine: reports: No Symptoms Reported Hematology: reports: No Symptoms Reported Psychiatric: reports: Judgement Intact, Orientated x3, Agitated, Anxious Patient History - Patient Medical History Hx Anemia: No Hx Asthma: Yes (Albuterol) Hx Chronic Obstructive Pulmonary Disease (COPD): No Hx Cancer: No Hx Cardiac Disorders: No Hx Congestive Heart Failure: No Hx Hypertension: Yes (Not on medication) Hx Hypercholesterolemia: No Hx Pacemaker: No HX Cerebrovascular Accident: No Hx Seizures: Yes (Not on medication) Hx Dementia: No Hx Diabetes: No Hx Gastrointestinal Disorders: Yes (GERD) Hx Liver Disease: No Hx Genitourinary Disorders: No Hx Sexually Transmitted Disorders: No Hx Renal Disease (ESRD): No Hx Thyroid Disease: No Hx Human Immunodeficiency Virus (HIV): No (Negative 2018) Hx Hepatitis C: No Hx Depression: No Hx Suicide Attempt: Yes (hospitalized five years ago; tried to OD on pills) Hx Bipolar Disorder: No Hx Schizophrenia: Yes (hears voices) - Patient Surgical History Past Surgical History: No Hx Neurologic Surgery: No Hx Cataract Extraction: No Hx Cardiac Surgery: No Hx Lung Surgery: No Hx Breast Surgery: No Hx Breast Biopsy: No Hx Abdominal Surgery: No Hx Appendectomy: No Hx Cholecystectomy: No Hx Genitourinary Surgery: No Hx Section: No Hx Orthopedic Surgery: No Anesthesia Reaction: No - PPD History Previous Implant?: Yes Documented Results: Negative w/proof Implanted On Prior [facility] Admission?: Yes PPD to be Administered?: Yes - Smoking Cessation Smoking history: Current every day smoker Have you smoked in the past 12 months: Yes Aproximately how many cigarettes per day: 10 Cigars Per Day: 0 Hx Chewing Tobacco Use: No Initiated information on smoking cessation: Yes 'Breaking Loose' booklet given: 03/30/19 - Substance & Tx. History Hx Alcohol Use: Yes Hx Substance Use: Yes Substance Use Type: Alcohol, Cocaine, Heroin, Marijuana Hx Substance Use Treatment: Yes (Detox) - Substances abused Heroin Substance route: Inhalation Frequency: Daily Amount used: 10bags Age of first use: 34 Date of last use: 03/30/19 Alcohol Substance route: Oral Frequency: Daily Amount used: vodka- 2pts Age of first use: 22 Date of last use: 03/29/19 Cocaine Substance route: Inhalation Frequency: Daily Amount used: 3bags Age of first use: 34 Date of last use: 03/30/19 Admission Physical Exam BHS - Vital Signs Vital Signs: Vital Signs - 24 hr 03/30/19 03/30/19 15:31 17:37 Temperature 97.6 F 97.6 F Pulse Rate 74 74 Respiratory 18 18 Rate Blood Pressure 154/88 154/88 - Physical General Appearance: Yes: Nourished, Mild Distress, Tremorous, Sweating ( INCREASED FACIAL MOISTURE) HEENTM: Yes: Hearing grossly Normal, MARCUS (PUPILS = 4 MM), Nasal Congestion Respiratory: Yes: Lungs Clear (PULSE OX = 99%), Normal Breath Sounds, No Respiratory Distress Neck: Yes: No masses,lesions,Nodules, Supple Breast: Yes: Breast Exam Deferred Cardiology: Yes: Regular Rhythm, Regular Rate, S1, S2 Abdominal: Yes: Non Tender, Flat, Soft, Increased Bowel Sounds Genitourinary: Yes: Within Normal Limits Back: Yes: Normal Inspection Musculoskeletal: Yes: full range of Motion, Gait Steady Extremities: Yes: Normal Capillary Refill, Normal Range of Motion, Tremors (MILD ) Neurological: Yes: Fully Oriented, Alert, Motor Strength 5/5, Depressed Affect ( FLAT AFFECT) Integumentary: Yes: Normal Color, Warm, Moist (INCREASED FACIAL MOISTURE), Other (SUPERFICIAL ABRASIONS W/ SCABS - BOTH SHINS) Lymphatic: Yes: Within Normal Limits - Diagnostic (1) History of asthma Current Visit: Yes Status: Chronic (2) Cocaine dependence, uncomplicated Current Visit: Yes Status: Chronic (3) Cannabis dependence, uncomplicated Current Visit: Yes Status: Chronic (4) Alcohol dependence with uncomplicated withdrawal Current Visit: Yes Status: Acute (5) Nicotine dependence Current Visit: Yes Status: Chronic Qualifiers: Nicotine product type: cigarettes Substance use status: in withdrawal Qualified Code(s): F17.213 - Nicotine dependence, cigarettes, with withdrawal (6) Opioid dependence with withdrawal Current Visit: Yes Status: Acute (7) HTN (hypertension) Current Visit: Yes Status: Chronic Qualifiers: Hypertension type: unspecified Qualified Code(s): I10 - Essential (primary ) hypertension Cleared for Admission S - Detox or Rehab [facility] Level of Care: Medically Managed Detox Regimen/Protocol: Methadone/Librium Claeared for Rehab Admission: No Breathalyzer - Breathalyzer Breathalyzer: 0 Urine Drug Screen - Test Device Lot number: [id number] Expiration date: 10/04/20 - Control Is test valid?: Yes - Results Drug screen NEGATIVE: No Urine drug screen results: THC-Marijuana, CURTIS-Cocaine, FEN-Fentanyl, MOP-Opiates Inpatient Rehab Admission - Rehab Decision to Admit Inpatient rehab admission?: No
[2019-03-30] MEDS ORDERED: MAGNESIUM CITRATE 300 ML BOTTLE PO PRN (19:01)
[2019-03-30] MEDS ORDERED: BISMUTH SUBSALICYLATE 524 MG/30 ML UD PO PRN (19:01)
[2019-03-30] MEDS ORDERED: METHOCARBAMOL 500 MG TABLET PO PRN (19:01)
[2019-03-30] MEDS ORDERED: MELATONIN 5 MG TABLETS PO PRN (19:01)
[2019-03-30] MEDS ORDERED: NICOTINE POLACRILEX 2 MG GUM BUC PRN (19:01)
[2019-03-30] MEDS ORDERED: MENTHOL/PHENOL 1 EACH UD MM PRN (19:01)
[2019-03-30] MEDS ORDERED: MAGNESIUM HYDROX 2400MG/30ML ORAL SUSPENSION 30 ML CUP PO PRN (19:01)
[2019-03-30] MEDS ORDERED: ACETAMINOPHEN 325 MG TABLET (FP) PO PRN ×2 (19:01)
[2019-03-30] MEDS ORDERED: MAG HYDROX/AL HYDROX/SIMETH 30 ML UNIT-DOSE CUP PO PRN (19:01)
[2019-03-30] MEDS ORDERED: chlordiazePOXIDE HCL 10 MG CAPSULE PO PRN (19:01)
[2019-03-30] MEDS ORDERED: METHADONE HCL 10 MG TABLET (FOR DETOX USE ONLY) PO ONE (19:45)
[2019-03-30] MEDS: BACITRACIN 15 GM TUBE TOPICAL OINTMENT TP SCH (22:33)
[2019-03-30] MEDS: THIAMINE HCL 100 MG TABLET (FP) PO SCH (22:33)
[2019-03-30] MEDS: chlordiazePOXIDE HCL 25 MG CAPSULE PO SCH (22:34)
[2019-03-31] MEDS: chlordiazePOXIDE HCL 25 MG CAPSULE PO SCH ×3 (07:37→22:37)
[2019-03-31] MEDS ORDERED: METHADONE HCL 5 MG TABLET (FOR DETOX USE ONLY) PO ONE (10:00)
--- NOTE | 2019-03-31 10:40 | EKG ---
Test Reason : Blood Pressure : / mmHG Vent. Rate : 072 BPM Atrial Rate : 072 BPM P-R Int : 148 ms QRS Dur : 074 ms QT Int : 388 ms P-R-T Axes : 014 056 011 degrees QTc Int : 424 ms POOR DATA QUALITY, INTERPRETATION MAY BE ADVERSELY AFFECTED NORMAL SINUS RHYTHM EARLY REPOLARIZATION WHEN COMPARED WITH ECG OF 14-JAN-2018 19:17, NO SIGNIFICANT CHANGE WAS FOUND Confirmed by GABRIEL PALMA MD ([id number]) on 03/31/2019 10:40:14 AM Referred By: Confirmed By:GABRIEL PALMA MD
[2019-03-31] MEDS: NICOTINE 14 MG/24 HOURS TOPICAL PATCH TD SCH (10:56)
[2019-03-31] MEDS: BACITRACIN 15 GM TUBE TOPICAL OINTMENT TP SCH ×2 (10:56→22:40)
[2019-03-31] MEDS: PRENATAL VITAMINS W/ FOLIC ACID TABLET (FP) PO SCH (10:56)
[2019-03-31 11:20] LABS: HEMATOCRIT 34.8 % (35.4-49); HEMOGLOBIN 11.4 GM/dL (11.7-16.9); MCH 28.6 pg (25.7-33.7); MCHC 32.8 g/dl (32.0-35.9); MEAN CELL VOLUME 87.2 fl (80-96); MEAN PLT VOLUME 8.3 fl (7.5-11.1); PLATELET COUNT 247 K/MM3 (134-434); RDW 15.3 % (11.9-15.9); WHITE BLOOD COUNT 5.1 K/mm3 (4.0-10.0)
[2019-03-31 11:32] LABS: ALBUMIN 3.2 g/dl (3.4-5.0); BILIRUBIN,TOTAL 0.7 mg/dL (0.2-1); BLOOD UREA NITROGEN 12.3 mg/dL (7-18); CALCIUM 8.3 mg/dL (8.5-10.1); CREATININE 0.9 mg/dL (0.55-1.3); POTASSIUM 3.8 mmol/L (3.5-5.1); TOT PROT 5.7 g/dl (6.4-8.2)
--- NOTE | 2019-03-31 11:51 | CONSULT ---
[facility] Psychiatric Consult - Data Date of interview: 03/31/19 Admission source: [facility] Identifying data: Revisit to [facility] and admission to [address] [place] [address] for this 38 y/o AA male self-referred for detoxification treatment. STAN issues : alcohol, opiate , nicotine, cocaine. Patient introduces self as father of two, domicioled and currently employed. Mr Banuelos is an unreliable historian (he is known to [facility] under different demographics as reflected in this previous entry from this life underwriter : single without children, homeless, unemployed and reportedly deprived of financial asssistance). At encounter of 09/07/18, he reported,to school curriculum developer Suraj, current SSI benefits. Substance Abuse History: Discussed with patient. Details in current [facility] report as follows : Smoking history: Current every day smoker. Have you smoked in the past 12 months: Yes. Aproximately how many cigarettes per day: 10. Cigars Per Day: 0. Hx Chewing Tobacco Use: No. Initiated information on smoking cessation : Yes. 'Breaking Loose' booklet given: 03/30/19. - Substance & Tx. History. Hx Alcohol Use: Yes. Hx Substance Use: Yes. Substance Use Type: Alcohol, Cocaine, Heroin, Marijuana. Hx Substance Use Treatment: Yes (Detox). - Substances abused. Heroin. Substance route: Inhalation. Frequency: Daily. Amount used: 10bags. Age of first use: 34. Date of last use: 03/30/19. Alcohol. Substance route: Oral. Frequency: Daily. Amount used: vodka- 2pts. Age of first use: 22. Date of last use: 03/29/19. Cocaine. Substance route : Inhalation. Frequency: Daily. Amount used: 3bags. Age of first use: 34. Date of last use: 03/30/19 Medical History: Medical profile is remarkable for history of withdrawal- related seizures and bronchial asthma. Psychiatric History: In this interview, the patient denies history of psychiatric hospitalizations, OPD care or suicide attempts. Records at [facility] demonstrate otherwise as evidenced by several reports (from different clinicians ) indicating history of psychiatric hospitalizations ([facility], [facility]), diagnosis of schizophrenia versus schizoaffective disorder, past trials of various medications (neuroleptics, atypicals, mood stabilizers) and chronic non-adherence to OPD care. Mr Banuelos denies history of suicide attempts. Physical/Sexual Abuse/Trauma History: Patient denies. Additional Comment: Urine drug screen results: THC-Marijuana, CURTIS-Cocaine, FEN- Fentanyl, MOP-Opiates. Noted. Mental Status Exam - Mental Status Exam Alert and Oriented to: Time, Place, Person Cognitive Function: Good Patient Appearance: Well Groomed (obese) Mood: Withdrawn Affect: Appropriate, Normal Range Patient Behavior: Cooperative (superficially cooperative) Speech Pattern: Clear Voice Loudness: Normal Thought Process: Goal Oriented Thought Disorder: Not Present Hallucinations: Denies Suicidal Ideation: Denies Homicidal Ideation: Denies Insight/Judgement: Poor Sleep: Well Appetite: Good Gait/Station: Normal Psychiatric Findings - Problem List ([place] 1, 2,3) (1) Alcohol dependence with uncomplicated withdrawal Current Visit: Yes Status: Acute (2) Opioid dependence with withdrawal Current Visit: Yes Status: Acute (3) Cocaine dependence, uncomplicated Current Visit: Yes Status: Chronic (4) Nicotine dependence Current Visit: Yes Status: Chronic Qualifiers: Nicotine product type: cigarettes Substance use status: in withdrawal Qualified Code(s): F17.213 - Nicotine dependence, cigarettes, with withdrawal (5) Cannabis dependence, uncomplicated Current Visit: Yes Status: Chronic (6) History of schizophrenia Current Visit: Yes Status: Chronic Comment: Non compliant with medications. (7) History of schizoaffective disorder Current Visit: Yes Status: Chronic Comment: Non compliant with OPD care. (8) Non-compliance Current Visit: Yes Status: Chronic - Initial Treatment Plan Initial Treatment Plan: Psychoeducation. Sleep hygiene. Detoxification. AA/NA meetings. MAT services explained to patient : indifferent to teaching. Observation.
--- NOTE | 2019-03-31 12:36 | PN ---
S CIWA - CIWA Score Nausea/Vomitin-No Nausea/No Vomiting Muscle Tremors: 2 Anxiety: 3 Agitation: 2 Paroxysmal Sweats: 3 Orientation: 0-Oriented Tacttile Disturbances: 0-None Auditory Disturbances: 0-None Visual Disturbances: 0-None Headache: 2-Mild CIWA-Ar Total Score: 12 BHS COWS - Scale Resting Pulse: 0= [place] 80 or Below Sweatin= Beads of Sweat on Face Restless Observation: 1= Difficult to Sit Still Pupil Size: 0= Normal to Room Light Bone or Joint Aches: 2= Severe Diffuse Aches Runny Nose/ Eye Tearin= None GI Upset > 30mins: 0= None Tremor Observation of Outstretched Hands: 2= Slight Tremor Visible Yawning Observation: 1= 1-2x During Session Anxiety or Irritability: 2=Irritable/Anxious Goose Flesh Skin: 0=Smooth Skin COWS Score: 11 S Progress Note (SOAP) Subjective: c/o anxiety, irritability, headache, muscle aches, shakes, and sweats. Objective: 03/31/19 12:35 Vital Signs 03/31/19 03/31/19 06:27 09:17 Temperature 96.9 F L 98.4 F Pulse Rate 60 69 Respiratory 18 18 Rate Blood Pressure 112/71 126/79 Laboratory Last Values WBC 5.1 K/mm3 (4.0-10.0) 03/31/19 08:00 RBC 4.00 M/mm3 (4.00-5.60) 03/31/19 08:00 Hgb 11.4 GM/dL (11.7-16.9) L 03/31/19 08:00 Hct 34.8 % (35.4-49) L 03/31/19 08:00 MCV 87.2 fl (80-96) 03/31/19 08:00 MCH 28.6 pg (25.7-33.7) 03/31/19 08:00 MCHC 32.8 g/dl (32.0-35.9) 03/31/19 08:00 RDW 15.3 % (11.9-15.9) 03/31/19 08:00 Plt Count 247 K/MM3 (134-434) 03/31/19 08:00 MPV 8.3 fl (7.5-11.1) 03/31/19 08:00 Sodium 139 mmol/L (136-145) 03/31/19 08:00 Potassium 3.8 mmol/L (3.5-5.1) 03/31/19 08:00 Chloride 107 mmol/L (98-107) 03/31/19 08:00 Carbon Dioxide 27 mmol/L (21-32) 03/31/19 08:00 Anion Gap 5 MMOL/L (8-16) L 03/31/19 08:00 BUN 12.3 mg/dL (7-18) 03/31/19 08:00 Creatinine 0.9 mg/dL (0.55-1.3) 03/31/19 08:00 Est GFR (CKD-EPI)AfAm 125.13 03/31/19 08:00 Est GFR (CKD-EPI)NonAf 107.97 03/31/19 08:00 Random Glucose 112 mg/dL (74-106) H 03/31/19 08:00 Calcium 8.3 mg/dL (8.5-10.1) L 03/31/19 08:00 Total Bilirubin 0.7 mg/dL (0.2-1) 03/31/19 08:00 AST 17 U/L (15-37) 03/31/19 08:00 ALT 21 U/L (13-61) 03/31/19 08:00 Alkaline Phosphatase 72 U/L (45-117) 03/31/19 08:00 Total Protein 5.7 g/dl (6.4-8.2) L 03/31/19 08:00 Albumin 3.2 g/dl (3.4-5.0) L 03/31/19 08:00 Labs noted. Assessment: 03/31/19 12:36 AOX3, in no acute respiratory distress. Full ROM, ambulating in the unit. Withdrawal symptoms. Plan: continue detox. Increase fluids.
[2019-03-31] MEDS: THIAMINE HCL 100 MG TABLET (FP) PO SCH (22:37)
[2019-04-01] MEDS: chlordiazePOXIDE 5 MG CAPSULE PO SCH ×3 (06:12→22:30)
[2019-04-01] MEDS ORDERED: METHADONE HCL 5 MG TABLET (FOR DETOX USE ONLY) PO ONE (10:00)
[2019-04-01] MEDS: PRENATAL VITAMINS W/ FOLIC ACID TABLET (FP) PO SCH (10:50)
[2019-04-01] MEDS: NICOTINE 14 MG/24 HOURS TOPICAL PATCH TD SCH (10:53)
[2019-04-01] MEDS: BACITRACIN 15 GM TUBE TOPICAL OINTMENT TP SCH ×2 (10:53→23:33)
--- NOTE | 2019-04-01 13:49 | PN ---
[facility] CIWA - CIWA Score Nausea/Vomitin-Mild Nausea/No Vomiting Muscle Tremors: 3 Anxiety: 3 Agitation: 1-Slight > Activity Paroxysmal Sweats: 2 Orientation: 0-Oriented Tacttile Disturbances: 0-None Auditory Disturbances: 0-None Visual Disturbances: 0-None Headache: 0-None Present CIWA-Ar Total Score: 10 S COWS - Scale Resting Pulse: 0= [place] 80 or Below Sweatin= Chills/Flushing Restless Observation: 0= Sits Still Pupil Size: 1= Pupils >than Normal Bone or Joint Aches: 1= Mild Discomfort Runny Nose/ Eye Tearin= Nasal Congestion GI Upset > 30mins: 2= Nausea/Diarrhea Tremor Observation of Outstretched Hands: 2= Slight Tremor Visible Yawning Observation: 0= None Anxiety or Irritability: 2=Irritable/Anxious Goose Flesh Skin: 0=Smooth Skin COWS Score: 10 [facility] Progress Note (SOAP) Subjective: 38 years old male admitted on 03/30/19 for alcohol and opiate withdrawal sx management treaqting with librium and methadone detox regimebn feeling ok today at breakfast and lunch resting in bed feeling tired limited conversation with staff Objective: 04/01/19 13:47 Vital Signs Temperature 98.8 F 04/01/19 13:17 Pulse Rate 68 04/01/19 13:17 Respiratory Rate 18 04/01/19 13:17 Blood Pressure 151/95 04/01/19 13:17 O2 Sat by Pulse Oximetry (%) Laboratory Last Values WBC 5.1 K/mm3 (4.0-10.0) 03/31/19 08:00 RBC 4.00 M/mm3 (4.00-5.60) 03/31/19 08:00 Hgb 11.4 GM/dL (11.7-16.9) L 03/31/19 08:00 Hct 34.8 % (35.4-49) L 03/31/19 08:00 MCV 87.2 fl (80-96) 03/31/19 08:00 MCH 28.6 pg (25.7-33.7) 03/31/19 08:00 MCHC 32.8 g/dl (32.0-35.9) 03/31/19 08:00 RDW 15.3 % (11.9-15.9) 03/31/19 08:00 Plt Count 247 K/MM3 (134-434) 03/31/19 08:00 MPV 8.3 fl (7.5-11.1) 03/31/19 08:00 Sodium 139 mmol/L (136-145) 03/31/19 08:00 Potassium 3.8 mmol/L (3.5-5.1) 03/31/19 08:00 Chloride 107 mmol/L (98-107) 03/31/19 08:00 Carbon Dioxide 27 mmol/L (21-32) 03/31/19 08:00 Anion Gap 5 MMOL/L (8-16) L 03/31/19 08:00 BUN 12.3 mg/dL (7-18) 03/31/19 08:00 Creatinine 0.9 mg/dL (0.55-1.3) 03/31/19 08:00 Est GFR (CKD-EPI)AfAm 125.13 03/31/19 08:00 Est GFR (CKD-EPI)NonAf 107.97 03/31/19 08:00 Random Glucose 112 mg/dL (74-106) H 03/31/19 08:00 Calcium 8.3 mg/dL (8.5-10.1) L 03/31/19 08:00 Total Bilirubin 0.7 mg/dL (0.2-1) 03/31/19 08:00 AST 17 U/L (15-37) 03/31/19 08:00 ALT 21 U/L (13-61) 03/31/19 08:00 Alkaline Phosphatase 72 U/L (45-117) 03/31/19 08:00 Total Protein 5.7 g/dl (6.4-8.2) L 03/31/19 08:00 Albumin 3.2 g/dl (3.4-5.0) L 03/31/19 08:00 lab noted 04/01/19 13:49clonidine 0.1 mg po prn for hypertension Assessment: 04/01/19 13:49 alcohol and opiate withdrawal Plan: librium and methadone regiments
[2019-04-01] MEDS: cloNIDine HCL 0.1 MG TABLET PO PRN (15:25)
[2019-04-01] MEDS: THIAMINE HCL 100 MG TABLET (FP) PO SCH (22:30)
[2019-04-02] MEDS ORDERED: chlordiazePOXIDE HCL 10 MG CAPSULE PO PRN
[2019-04-02 00:38] LABS: URINE APPEARANCE Clear; URINE BILIRUBIN Negative (NEGATIVE); URINE COLOR Yellow; URINE GLUCOSE (UA) Negative (NEGATIVE); URINE KETONE Trace (NEGATIVE); URINE LEUK ESTERASE Negative (NEGATIVE); URINE NITRITE Negative (NEGATIVE); URINE PROTEIN Negative (NEGATIVE); URINE UROBILINOGEN 0.2 mg/dL (0.2-1.0)
[2019-04-02] MEDS: chlordiazePOXIDE HCL 10 MG CAPSULE PO SCH ×3 (06:05→22:11)
[2019-04-02] MEDS ORDERED: METHADONE HCL 10 MG TABLET (FOR DETOX USE ONLY) PO ONE (10:00)
[2019-04-02] MEDS: PRENATAL VITAMINS W/ FOLIC ACID TABLET (FP) PO SCH (10:16)
[2019-04-02] MEDS: NICOTINE 14 MG/24 HOURS TOPICAL PATCH TD SCH (10:16)
[2019-04-02] MEDS: BACITRACIN 15 GM TUBE TOPICAL OINTMENT TP SCH ×2 (10:18→22:12)
--- NOTE | 2019-04-02 13:08 | PN ---
[facility] CIWA - CIWA Score Nausea/Vomitin-No Nausea/No Vomiting Muscle Tremors: 1-None Visible, but [place] Anxiety: 1-Mildly Anxious Agitation: 1-Slight > Activity Paroxysmal Sweats: 1-Minimal Palms Moist Orientation: 0-Oriented Tacttile Disturbances: 0-None Auditory Disturbances: 0-None Visual Disturbances: 0-None Headache: 1-Very Mild CIWA-Ar Total Score: 5 BHS COWS - Scale Resting Pulse: 0= [place] 80 or Below Sweatin= Chills/Flushing Restless Observation: 0= Sits Still Pupil Size: 0= Normal to Room Light Bone or Joint Aches: 1= Mild Discomfort Runny Nose/ Eye Tearin= None GI Upset > 30mins: 1= Stomach Cramp Tremor Observation of Outstretched Hands: 1= Tremor [place], Not Seen Yawning Observation: 0= None Anxiety or Irritability: 1=Feels Anxious/Irritable Goose Flesh Skin: 0=Smooth Skin COWS Score: 5 S Progress Note (SOAP) Subjective: 38 years old male admitted on 03/30/19 for alcohol and opiate withdrawal sx management treating with librium and methadone detox regiments feeling ok today ambulating on hallway less tremor mild anxiety Objective: 04/02/19 13:09 Vital Signs Temperature 97.1 F L 04/02/19 09:27 Pulse Rate 72 04/02/19 09:27 Respiratory Rate 16 04/02/19 09:27 Blood Pressure 104/66 04/02/19 09:27 O2 Sat by Pulse Oximetry (%) Laboratory Last Values WBC 5.1 K/mm3 (4.0-10.0) 03/31/19 08:00 RBC 4.00 M/mm3 (4.00-5.60) 03/31/19 08:00 Hgb 11.4 GM/dL (11.7-16.9) L 03/31/19 08:00 Hct 34.8 % (35.4-49) L 03/31/19 08:00 MCV 87.2 fl (80-96) 03/31/19 08:00 MCH 28.6 pg (25.7-33.7) 03/31/19 08:00 MCHC 32.8 g/dl (32.0-35.9) 03/31/19 08:00 RDW 15.3 % (11.9-15.9) 03/31/19 08:00 Plt Count 247 K/MM3 (134-434) 03/31/19 08:00 MPV 8.3 fl (7.5-11.1) 03/31/19 08:00 Sodium 139 mmol/L (136-145) 03/31/19 08:00 Potassium 3.8 mmol/L (3.5-5.1) 03/31/19 08:00 Chloride 107 mmol/L (98-107) 03/31/19 08:00 Carbon Dioxide 27 mmol/L (21-32) 03/31/19 08:00 Anion Gap 5 MMOL/L (8-16) L 03/31/19 08:00 BUN 12.3 mg/dL (7-18) 03/31/19 08:00 Creatinine 0.9 mg/dL (0.55-1.3) 03/31/19 08:00 Est GFR (CKD-EPI)AfAm 125.13 03/31/19 08:00 Est GFR (CKD-EPI)NonAf 107.97 03/31/19 08:00 Random Glucose 112 mg/dL (74-106) H 03/31/19 08:00 Calcium 8.3 mg/dL (8.5-10.1) L 03/31/19 08:00 Total Bilirubin 0.7 mg/dL (0.2-1) 03/31/19 08:00 AST 17 U/L (15-37) 03/31/19 08:00 ALT 21 U/L (13-61) 03/31/19 08:00 Alkaline Phosphatase 72 U/L (45-117) 03/31/19 08:00 Total Protein 5.7 g/dl (6.4-8.2) L 03/31/19 08:00 Albumin 3.2 g/dl (3.4-5.0) L 03/31/19 08:00 Urine Color Yellow 04/01/19 21:30 Urine Appearance Clear 04/01/19 21:30 Urine pH 6.0 (5.0-8.0) D 04/01/19 21:30 Ur Specific [place] 1.025 (1.010-1.035) 04/01/19 21:30 Urine Protein Negative (NEGATIVE) 04/01/19 21:30 Urine Glucose (UA) Negative (NEGATIVE) 04/01/19 21:30 Urine Ketones Trace (NEGATIVE) 04/01/19 21:30 Urine Blood Negative (NEGATIVE) 04/01/19 21:30 Urine Nitrite Negative (NEGATIVE) 04/01/19 21:30 Urine Bilirubin Negative (NEGATIVE) 04/01/19 21:30 Urine Urobilinogen 0.2 mg/dL (0.2-1.0) 04/01/19 21:30 Ur Leukocyte Esterase Negative (NEGATIVE) 04/01/19 21:30 RPR Titer Nonreactive (NONREACTIVE) 03/31/19 08:00 lab noted Assessment: 04/02/19 13:09 alcohol and opiate withdrawal Plan: librium and methadone regiments
[2019-04-02] MEDS: IBUPROFEN 400 MG TABLET (FP) PO PRN (22:11)
[2019-04-02] MEDS: THIAMINE HCL 100 MG TABLET (FP) PO SCH (22:11)
[2019-04-03] MEDS ORDERED: chlordiazePOXIDE HCL 10 MG CAPSULE PO ONE (05:00)
[2019-04-03] MEDS ORDERED: METHADONE HCL 10 MG TABLET (FOR DETOX USE ONLY) PO ONE (10:00)
--- NOTE | 2019-04-03 10:11 | PN ---
[facility] CIWA - CIWA Score Nausea/Vomitin-No Nausea/No Vomiting Muscle Tremors: 1-None Visible, but [place] Anxiety: 1-Mildly Anxious Agitation: 0-Normal Activity Paroxysmal Sweats: 1-Minimal Palms Moist Orientation: 0-Oriented Tacttile Disturbances: 0-None Auditory Disturbances: 0-None Visual Disturbances: 0-None Headache: 0-None Present CIWA-Ar Total Score: 3 BHS COWS - Scale Resting Pulse: 0= [place] 80 or Below Sweatin= No chills or Flushing Restless Observation: 0= Sits Still Pupil Size: 0= Normal to Room Light Bone or Joint Aches: 1= Mild Discomfort Runny Nose/ Eye Tearin= None GI Upset > 30mins: 0= None Tremor Observation of Outstretched Hands: 1= Tremor [place], Not Seen Yawning Observation: 0= None Anxiety or Irritability: 1=Feels Anxious/Irritable Goose Flesh Skin: 0=Smooth Skin COWS Score: 3 S Progress Note (SOAP) Subjective: 38 years old male admitted on 03/30/19 for alcohol and opiate withdrawal sx management treating with librium and methadone detox regiments left pereira 2cm soft raised are "I fell few days ago" denies pain none tenderness no redness skin color as well as skin temperature two 1mm scars noted no exudate patient agrees to follow up with his primary care provider or aftercare facility for medical attention if necessary Objective: 04/03/19 10:09 Vital Signs Temperature 96.6 F L 04/03/19 09:04 Pulse Rate 61 04/03/19 09:04 Respiratory Rate 16 04/03/19 09:04 Blood Pressure 98/67 04/03/19 09:04 O2 Sat by Pulse Oximetry (%) Laboratory Last Values WBC 5.1 K/mm3 (4.0-10.0) 03/31/19 08:00 RBC 4.00 M/mm3 (4.00-5.60) 03/31/19 08:00 Hgb 11.4 GM/dL (11.7-16.9) L 03/31/19 08:00 Hct 34.8 % (35.4-49) L 03/31/19 08:00 MCV 87.2 fl (80-96) 03/31/19 08:00 MCH 28.6 pg (25.7-33.7) 03/31/19 08:00 MCHC 32.8 g/dl (32.0-35.9) 03/31/19 08:00 RDW 15.3 % (11.9-15.9) 03/31/19 08:00 Plt Count 247 K/MM3 (134-434) 03/31/19 08:00 MPV 8.3 fl (7.5-11.1) 03/31/19 08:00 Sodium 139 mmol/L (136-145) 03/31/19 08:00 Potassium 3.8 mmol/L (3.5-5.1) 03/31/19 08:00 Chloride 107 mmol/L (98-107) 03/31/19 08:00 Carbon Dioxide 27 mmol/L (21-32) 03/31/19 08:00 Anion Gap 5 MMOL/L (8-16) L 03/31/19 08:00 BUN 12.3 mg/dL (7-18) 03/31/19 08:00 Creatinine 0.9 mg/dL (0.55-1.3) 03/31/19 08:00 Est GFR (CKD-EPI)AfAm 125.13 03/31/19 08:00 Est GFR (CKD-EPI)NonAf 107.97 03/31/19 08:00 Random Glucose 112 mg/dL (74-106) H 03/31/19 08:00 Calcium 8.3 mg/dL (8.5-10.1) L 03/31/19 08:00 Total Bilirubin 0.7 mg/dL (0.2-1) 03/31/19 08:00 AST 17 U/L (15-37) 03/31/19 08:00 ALT 21 U/L (13-61) 03/31/19 08:00 Alkaline Phosphatase 72 U/L (45-117) 03/31/19 08:00 Total Protein 5.7 g/dl (6.4-8.2) L 03/31/19 08:00 Albumin 3.2 g/dl (3.4-5.0) L 03/31/19 08:00 Urine Color Yellow 04/01/19 21:30 Urine Appearance Clear 04/01/19 21:30 Urine pH 6.0 (5.0-8.0) D 04/01/19 21:30 Ur Specific [place] 1.025 (1.010-1.035) 04/01/19 21:30 Urine Protein Negative (NEGATIVE) 04/01/19 21:30 Urine Glucose (UA) Negative (NEGATIVE) 04/01/19 21:30 Urine Ketones Trace (NEGATIVE) 04/01/19 21:30 Urine Blood Negative (NEGATIVE) 04/01/19 21:30 Urine Nitrite Negative (NEGATIVE) 04/01/19 21: Urine Bilirubin Negative (NEGATIVE) 04/01/19 21: Urine Urobilinogen 0.2 mg/dL (0.2-1.0) 04/01/19 21:30 Ur Leukocyte Esterase Negative (NEGATIVE) 04/01/19 21:30 RPR Titer Nonreactive (NONREACTIVE) 03/31/19 08:00 lab noted no wbc elevation Vital Signs Temperature 96.6 F L 04/03/19 09:04 Pulse Rate 61 04/03/19 09:04 Respiratory Rate 16 04/03/19 09:04 Blood Pressure 98/67 04/03/19 09:04 O2 Sat by Pulse Oximetry (%) no temperature elevation 04/03/19 10:10 Assessment: 04/03/19 10:10 alcohol and opiate withdrawal ambulating from bed to bathroom steady gait Plan: librium and methadone regiments
[2019-04-03] MEDS: NICOTINE 14 MG/24 HOURS TOPICAL PATCH TD SCH (10:30)
[2019-04-03] MEDS: PRENATAL VITAMINS W/ FOLIC ACID TABLET (FP) PO SCH (10:30)
[2019-04-03] MEDS: BACITRACIN 15 GM TUBE TOPICAL OINTMENT TP SCH ×2 (10:33→22:23)
[2019-04-03] MEDS: cloNIDine HCL 0.1 MG TABLET PO PRN (22:33)
[2019-04-03] MEDS: IBUPROFEN 400 MG TABLET (FP) PO PRN (22:33)
[2019-04-03] MEDS: THIAMINE HCL 100 MG TABLET (FP) PO SCH (22:33)
[2019-04-04] MEDS ORDERED: METHADONE HCL 5 MG TABLET (FOR DETOX USE ONLY) PO ONE (06:00)
[2019-04-04 09:17] VITALS: BP 124/83; PULSE 64; TEMP 98.7
[2019-04-04] MEDS: PRENATAL VITAMINS W/ FOLIC ACID TABLET (FP) PO SCH (10:09)
[2019-04-04] MEDS: NICOTINE 14 MG/24 HOURS TOPICAL PATCH TD SCH (10:09)
[2019-04-04] MEDS: BACITRACIN 15 GM TUBE TOPICAL OINTMENT TP SCH (10:10)
--- NOTE | 2019-04-04 11:59 | DS ---
[facility] Detox Discharge Summary Admission Date: 03/30/19 Discharge Date: 04/04/19 - History Present History: Alcohol Dependence, Opioid Dependence Additional Comments: 38 years old male admitted on 03/30/19 for alcohol and opiate withdrawal sx management treated with librium and methadone detox regiments patient has completed librium and methadone regiments and tolerated well alert oriented x 3 respiratory clear lungs bilaterally on auscultation abdomen soft round obese no rebound tenderness skin warm and dry - Physical Exam Results Vital Signs: Vital Signs Temperature 98.7 F 04/04/19 08:13 Pulse Rate 64 04/04/19 08:13 Respiratory Rate 18 04/04/19 08:13 Blood Pressure 124/83 04/04/19 08:13 O2 Sat by Pulse Oximetry (%) Pertinent Admission Physical Exam Findings: alcohol and opiate withdrawal Laboratory Last Values WBC 5.1 K/mm3 (4.0-10.0) 03/31/19 08:00 RBC 4.00 M/mm3 (4.00-5.60) 03/31/19 08:00 Hgb 11.4 GM/dL (11.7-16.9) L 03/31/19 08:00 Hct 34.8 % (35.4-49) L 03/31/19 08:00 MCV 87.2 fl (80-96) 03/31/19 08:00 MCH 28.6 pg (25.7-33.7) 03/31/19 08:00 MCHC 32.8 g/dl (32.0-35.9) 03/31/19 08:00 RDW 15.3 % (11.9-15.9) 03/31/19 08:00 Plt Count 247 K/MM3 (134-434) 03/31/19 08:00 MPV 8.3 fl (7.5-11.1) 03/31/19 08:00 Sodium 139 mmol/L (136-145) 03/31/19 08:00 Potassium 3.8 mmol/L (3.5-5.1) 03/31/19 08:00 Chloride 107 mmol/L (98-107) 03/31/19 08:00 Carbon Dioxide 27 mmol/L (21-32) 03/31/19 08:00 Anion Gap 5 MMOL/L (8-16) L 03/31/19 08:00 BUN 12.3 mg/dL (7-18) 03/31/19 08:00 Creatinine 0.9 mg/dL (0.55-1.3) 03/31/19 08:00 Est GFR (CKD-EPI)AfAm 125.13 03/31/19 08:00 Est GFR (CKD-EPI)NonAf 107.97 03/31/19 08:00 Random Glucose 112 mg/dL (74-106) H 03/31/19 08:00 Calcium 8.3 mg/dL (8.5-10.1) L 03/31/19 08:00 Total Bilirubin 0.7 mg/dL (0.2-1) 03/31/19 08:00 AST 17 U/L (15-37) 03/31/19 08:00 ALT 21 U/L (13-61) 03/31/19 08:00 Alkaline Phosphatase 72 U/L (45-117) 03/31/19 08:00 Total Protein 5.7 g/dl (6.4-8.2) L 03/31/19 08:00 Albumin 3.2 g/dl (3.4-5.0) L 03/31/19 08:00 Urine Color Yellow 04/01/19 21:30 Urine Appearance Clear 04/01/19 21:30 Urine pH 6.0 (5.0-8.0) D 04/01/19 21:30 Ur Specific [place] 1.025 (1.010-1.035) 04/01/19 21:30 Urine Protein Negative (NEGATIVE) 04/01/19 21:30 Urine Glucose (UA) Negative (NEGATIVE) 04/01/19 21:30 Urine Ketones Trace (NEGATIVE) 04/01/19 21:30 Urine Blood Negative (NEGATIVE) 04/01/19 21:30 Urine Nitrite Negative (NEGATIVE) 04/01/19 21:30 Urine Bilirubin Negative (NEGATIVE) 04/01/19 21:30 Urine Urobilinogen 0.2 mg/dL (0.2-1.0) 04/01/19 21:30 Ur Leukocyte Esterase Negative (NEGATIVE) 04/01/19 21:30 RPR Titer Nonreactive (NONREACTIVE) 03/31/19 08:00 lab noted - Treatment Hospital Course: Detox Protocol Followed, Detoxed Safely, Responded well, Discharged Condition Good, Rehab Referral Accepted Patient has Accepted a Rehab Referral to: [facility] - Medication Discharge Medications: Ambulatory Orders Naloxone HCl [Narcan] 4 mg NS ASDIR PRN #1 spray 04/03/19 - Diagnosis (1) Alcohol dependence with uncomplicated withdrawal Status: Acute (2) Opioid dependence with withdrawal Status: Acute (3) Asthma Status: Chronic Qualifiers: Asthma severity: mild Asthma persistence: intermittent Asthma complication type: with status asthmaticus Qualified Code(s): J45.22 - Mild intermittent asthma with status asthmaticus (4) GERD (gastroesophageal reflux disease) Status: Chronic Qualifiers: Esophagitis presence: without esophagitis Qualified Code(s): K21.9 - Gastro -esophageal reflux disease without esophagitis (5) HTN (hypertension) Status: Chronic Qualifiers: Hypertension type: essential hypertension Qualified Code(s): I10 - Essential (primary) hypertension (6) History of asthma Status: Chronic (7) Nicotine dependence Status: Acute Qualifiers: Nicotine product type: cigarettes Substance use status: in withdrawal Qualified Code(s): F17.213 - Nicotine dependence, cigarettes, with withdrawal (8) Substance induced mood disorder Status: Suspected - AMA Did Patient Leave Against Medical Advice: No CIWA Score - CIWA Score Nausea/Vomitin-No Nausea/No Vomiting Muscle Tremors: 1-None Visible, but [place] Anxiety: 0-No Anxiety, at Ease Agitation: 0-Normal Activity Paroxysmal Sweats: No Perspiration Orientation: 0-Oriented Tacttile Disturbances: 0-None Auditory Disturbances: 0-None Visual Disturbances: 0-None Headache: 0-None Present CIWA-Ar Total Score: 1 COWS (PN) - Opiate Withdrawal Resting Pulse: 0= [place] 80 or Below Sweatin= No chills or Flushing Restless Observation: 0= Sits Still Pupil Size: 0= Normal to Room Light Bone or Joint Aches: 0= None Runny Nose/ Eye Tearin= None GI Upset > 30mins: 0= None Tremor Observation of Outstretched Hands: 1= Tremor [place], Not Seen Yawning Observation: 0= None Anxiety or Irritability: 0= None Goose Flesh Skin: 0=Smooth Skin COWS Score: 1
== END 2019-04-04 10:35 | disposition home or self-care (01) | DRG 773 ==
LOC: YASAS 15:01 → Y3N 19:41
PROVIDERS: ADMIT Allergy & Immunology; ATTEND Allergy & Immunology
PROC: HZ2ZZZZ Detoxification Services for Substance Abuse Treatment (ICD-10-PCS; principal; 2019-03-30)
DX: F11.23 Opioid dependence with withdrawal (principal); F10.230 Alcohol dependence with withdrawal, uncomplicated; F14.20 Cocaine dependence, uncomplicated; F12.20 Cannabis dependence, uncomplicated; F17.213 Nicotine dependence, cigarettes, with withdrawal; F19.24 Other psychoactive substance dependence with psychoactive substance-induced mood disorder; I10 Essential (primary) hypertension; J45.22 Mild intermittent asthma with status asthmaticus; K21.9 Gastro-esophageal reflux disease without esophagitis; Z86.69 Personal history of other diseases of the nervous system and sense organs; Z91.012 Allergy to eggs; Z56.0 Unemployment, unspecified; Z91.5 Personal history of self-harm
CPT/HCPCS: 36415; 80053; 81003; 85027; 86593; 93005; 93010; J0735